=== PATIENT | male | born 1950 | race Caucasian/White ===

== ENCOUNTER 2018-05-31 12:12 | Emergency (ER) | payer OTHER ==
[2018-05-31 12:24] VITALS: BMI 26.6
--- NOTE | 2018-05-31 13:03 | PDOC ---
History of Present Illness - General Chief Complaint: Nausea/Vomiting Stated Complaint: NAUSEA/VOMITING Time Seen by Provider: 05/31/18 13:03 - History of Present Illness Initial Comments: Antony Krishnamurthy is a 67yo man with a PMH of HTN, HLD, DM, GERD who presents with diarrhea for one week and nausea/vomiting for 2 days. He reports that he initially started having severe heartburn about 2 weeks ago, much worse than normal, that was not controlled with his normal GERD medication. Then, about a week ago, he started having frequent diarrhea with urgency including at least once when he was not able to make it to the bathroom in time. He additionally started having nausea with multiple episodes of vomiting over the past 2 days and had been unable to keep any food down. Mr Krishnamurthy also states that over the past day or so he has become dizzy and lightheaded whenever he stands up. Mr Krishnamurthy denies any fevers or chills, abdominal pain, urinary symptoms, chest pain, or SOB. He has been compliant with his normal medications and checks is blood glucose regularly; this morning it was 176 at home. He additionally denies any recent hospitalizations, recent antibiotics antibiotics, travel out of the country, or sick contacts. Past History - Past Medical History Allergies/Adverse Reactions: Allergies Allergy/AdvReac Type Severity Reaction Status Date / Time No Known Allergies Allergy Verified 05/31/18 12:24 Home Medications: Ambulatory Orders Losartan/Hydrochlorothiazide [Losartan-Hctz 50-12.5 mg Tab] 1 tab PO DAILY 05/31 Omeprazole Magnesium [Prilosec] 1 dose PO DAILY 05/31/18 Anemia: (unsure) Asthma: No Cancer: No Cardiac Disorders: No CVA: No COPD: No CHF: No Dementia: No Diabetes: Yes GI Disorders: No Disorders: No HTN: Yes (takes losartan) Hypercholesterolemia: Yes Liver Disease: No Seizures: No Thyroid Disease: No - Surgical History Abdominal Surgery: No Appendectomy: No Cardiac Surgery: No Cholecystectomy: No Lung Surgery: No Neurologic Surgery: No Orthopedic Surgery: No - Suicide/Smoking/Psychosocial Hx Smoking History: Never smoked Have you smoked in the past 12 months: No Hx Alcohol Use: Yes (beer or wine on weekends) Drug/Substance Use Hx: No Substance Use Type: Alcohol Hx Substance Use Treatment: No Review of Systems - Review of Systems Able to Perform ROS?: Yes Comments:: General: No fevers, no chills, +malaise, +poor PO intake HEENT: No changes in vision, no changes in hearing, no congestion, no sore throat CV: No chest pain, no palpitations, no LE edema, +lightheaded Pulm: No SOB, no cough, no wheezing GI: See HPI. No hematemasis, no melena : No frequency, no urgency, no dysuria Musc: No back pain, no joint swelling, no recent injury Skin: No rash, no lesions, no erythema Endo: No excessive thirst, no heat/cold intolerance. h/o DM Heme: No unusual bruising or bleeding, no swollen glands Neuro: No syncope, no numbness/tingling, no focal weakness Vasc: No claudication Psych: No recent change in mood, no SI or HI Is the patient limited Urdu proficient: Yes *Physical Exam - Vital Signs Last Vital Signs Temp Pulse Resp BP Pulse Ox 98.2 F 99 H 18 102/53 99 05/31/18 12:22 05/31/18 12:22 05/31/18 12:22 05/31/18 12:22 05/31/18 12:22 - Physical Exam Comments: General: Comfortable, no acute distress HEENT: PERRL, EOMI, MMM, voice normal, normal neck ROM, no LAD Cards: RRR, no murmur appreciated Pulm: Comfortable on room air, clear to auscultation bilaterally Abd: Soft, nontender, nondistended Ext: Atraumatic. No LE edema. ROM intact. Strength 5/5 and equal bilaterally Vasc: Extremities WWP. Palpable radial and pedal pulses bilaterally Neuro: A&Ox3, CN grossly intact, normal speech, motor/sensory grossly intact and symmetric Psych: Mood appropriate to situation ED Treatment Course - LABORATORY CBC & Chemistry Diagram: 05/31/18 13:45 05/31/18 13:45 Medical Decision Making - Medical Decision Making 05/31/18 13:42 Antony Krishnamurthy is a 67yo man with a history of HTN, HLD, DM, GERD who presents with worsening GI symtpoms including severe heartburn for 2 weeks, diarrhea for 1 week, and nausea/vomiting for 2 days with poor PO intake and now lightheadedness with standing. - Most likely viral gastroenteritis, though could be bacterial given duration - No inciting events, sick contacts, or travel suggesting etiology - No risk factors for cdiff - Reports DM is well controlled, but will check UA for ketones and blood glucose to r/o GI symptoms secondary to uncontrolled DM - No s/s that suggest ACS as a cause of nausea and vomiting, especially given associated diarrhea - No abdominal pain suggesting surgical GI pathology - CBC, CMP, lipase, mag, phos, UA ordered - Zofran for nausea/vomiting - Normal saline bolus given likely dehydration - BP low, especially with h/o HTN , and reports symptoms consistent with orthostatic HoTN 05/31/18 16:39 - Symptoms resolved following zofran and IV fluids - Will PO challenge. Must be able to take PO prior to discharge - Labs returned. Slight TRISTA, may be secondary to vomiting but also has protein and ketones noted on UA and could be related to DM - Sodium and chloride low, already gave 1L NS bolus. Will replete mag - If able to tolerate PO, will discharge home. Will need to follow up with primary care for additional evaluation of kidneys - Discussed return precautions and need for follow up with Mr Krishnamurthy. Discussed with Dr Pagan. *DC/Admit/Observation/Transfer Diagnosis at time of Disposition: Vomiting Qualifiers: Vomiting type: unspecified Vomiting Intractability: non-intractable Nausea presence: with nausea Qualified Code(s): R11.2 - Nausea with vomiting, unspecified - Discharge Dispostion Disposition: HOME Condition at time of disposition: Good Decision to Admit order: No - Referrals Referrals: Opal Pope MD [Primary Care Provider] - - Patient Instructions Printed Discharge Instructions: DI for Vomiting -- Adult, Complications of Type 2 Diabetes Additional Instructions: Discharge Instructions: - You were seen in the ED for nausea and vomiting. - Your symptoms improved with a medications: you were given an antiemetic called zofran and anti-acid medication called famotidine. - You have been given a prescription for zofran for nause and vomting at home. You can take this medication every 6-8 hours if you need to for feelings of nausea or vomiting - You will need to follow up with your primary doctor. Some of the tests that you had done in the ED showed that your kidneys were not working properly - you had proteins leaking into your urine, and a blood test showed that your kidneys were not filtering your blood as well as they should be. Your doctor may want to do additional testing as diabetes can affect your kidneys. - You should also seek additional medical care if you are unable to eat or drink anything at home, you have multiple episodes of vomiting that are not controlled by medication, you have fevers or shivering chills, or your symptoms worsen over time rather than improve. Even if you are feeling better, you should follow up with your primary doctor within the next week. Print Language: POLISH - Post Discharge Activity
--- NOTE | 2018-05-31 13:22 | PDOC ---
Attending Attestation - Resident Resident Name: Kassandra Pulido - ED Attending Attestation I have performed the following: I have examined & evaluated the patient, The case was reviewed & discussed with the resident, I agree w/resident's findings & plan, Exceptions are as noted - HPI HPI: 05/31/18 13:19 67y M hx of htn, dm, gerd, presents with 1 week of non bloody brownish/soft stool, nbnb n/v x 2 days. Pt typically has heart burn but worsened the last 2 weeks, not improving with otc antacids. Pt notes some diarrhea the past week. Pt notes mild epigastric pain with is vomiting, otherwise feels ok. no associated cp, sob, fever/chills, headache, vision changes, numbness/tingling/ weakness, cough, back pain. Pt notes he is unable to tolerate oral intake, and now feeling lightheaded when standing up. No recent travel, hospitalizations, abx use, known sick contacts. BGM in the 160s at home. GENERAL: The patient is awake, alert, and fully oriented, Nontoxic - in no acute distress. HEAD: Normocephalic, atraumatic. ENT: Normal voice, mildly dry mucous membranes. NECK: Normal range of motion, supple ABDOMEN: Soft, nontender, hyperactive bowel sounds. No guarding, no rebound. No CVA tenderness EXTREMITIES: Normal range of motion, no edema. No clubbing or cyanosis. No cords, erythema, or tenderness. NEUROLOGICAL: No facial assymetry, Normal speech, moving all 4e xtremitiess pontaneously and symmetrically, normal gait PSYCH: Normal mood, normal affect. SKIN: Warm, Dry, normal turgor, likely gastroneteritis, gastritis will ck lites to r/o metabolic derangement, hyperglycemia ua to r/o uti ekg to screen for acs will give fluids, ofran, pepcid will reassess - Medical Decision Making 05/31/18 13:36 see above Heart Score/ECG Review - ECG Impressions Comment:: 05/31/18 16:16 Twelve-lead EKG was performed and reviewed by me. There is normal sinus rhythm with a normal rate. Rate of 95 The axis is normal. The intervals are normal. There are no ST or T wave abnormalities.
[2018-05-31] MEDS ORDERED: SODIUM CHLORIDE 0.9% 500 ML INFUS.BAG IV ONE (13:24)
[2018-05-31] MEDS ORDERED: ONDANSETRON 4 MG/2 ML VIAL IVPUSH ONE (13:24)
[2018-05-31] MEDS ORDERED: FAMOTIDINE 20 MG/50 ML IVPB 20 MG in PREMIX 50 IVPB ONE (13:36)
[2018-05-31] MEDS ORDERED: ONDANSETRON 4 MG/2 ML VIAL ONE (13:50)
[2018-05-31] MEDS ORDERED: FAMOTIDINE 20 MG/50 ML IVPB 20 MG/50 ML MG IVPB ONE (14:23)
[2018-05-31 14:41] LABS: URINE APPEARANCE CLEAR; URINE BILIRUBIN NEGATIVE (<2.0 mg/dL); URINE COLOR YELLOW; URINE GLUCOSE (UA) 1+ (NEGATIVE); URINE KETONE NEGATIVE (NEGATIVE); URINE LEUK ESTERASE NEGATIVE (NEGATIVE); URINE NITRITE NEGATIVE (NEGATIVE); URINE UROBILINOGEN NEGATIVE mg/dL (0.2-1.0)
[2018-05-31 14:43] LABS: URINE PROTEIN 2+ (NEGATIVE)
[2018-05-31 14:52] LABS: EPI CELLS RARE /HPF (FEW); URINE BACTERIA FEW /hpf (NONE SEEN); URINE HYALINE CAST 49 /lpf; URINE MUCUS RARE
[2018-05-31 15:12] LABS: HEMATOCRIT 32.6 % (35.4-49); HEMOGLOBIN 11.4 GM/dL (11.7-16.9); MCH 35.5 pg (25.7-33.7); MCHC 34.9 g/dl (32.0-35.9); MEAN CELL VOLUME 101.5 fl (80-96); MEAN PLT VOLUME 7.9 fl (7.5-11.1); PLATELET COUNT 161 K/MM3 (134-434); RBC 3.21 M/mm3 (4.00-5.60); WHITE BLOOD COUNT 5.5 K/mm3 (4.0-10.0)
[2018-05-31 15:41] LABS: ALBUMIN 3.9 g/dl (3.4-5.0); ANION GAP 12 (8-16); BILIRUBIN,TOTAL 0.2 mg/dL (0.2-1.0); BLOOD UREA NITROGEN 17 mg/dL (7-18); CHLORIDE 92 mmol/L (98-107); CO2 26 mmol/L (21-32); CREATININE 1.6 mg/dL (0.7-1.3); GLUCOSE,RANDOM 176 mg/dL (74-106); LIPASE 111 U/L (73-393); MAGNESIUM 1.3 mg/dL (1.8-2.4); PHOSPHOROUS 3.2 mg/dL (2.5-4.9); POTASSIUM 3.6 mmol/L (3.5-5.1); SGOT/AST 24 U/L (15-37); SGPT/ALT 32 U/L (12-78); SODIUM 130 mmol/L (136-145)
[2018-05-31 15:42] LABS: ALK PHOS 66 U/L (45-117); TOT PROT 7.4 g/dl (6.4-8.2)
[2018-05-31] MEDS ORDERED: MAGNESIUM SULF 50% (8.12 MEQ/2 ML-1 GM VIAL) IVPB ONE (16:55)
[2018-05-31] MEDS ORDERED: MAGNESIUM 1GM/D5W - 2 GM/200 ML IVPB IVPB ONE (17:32)
[2018-05-31 17:49] VITALS: BP 125/79; PULSE 93; TEMP 98.1
--- NOTE | 2018-06-01 08:57 | EKG ---
Test Reason : Blood Pressure : / mmHG Vent. Rate : 095 BPM Atrial Rate : 095 BPM P-R Int : 180 ms QRS Dur : 082 ms QT Int : 368 ms P-R-T Axes : 053 -10 013 degrees QTc Int : 462 ms NORMAL SINUS RHYTHM NORMAL ECG WHEN COMPARED WITH ECG OF 12-JAN-2004 17:06, NO SIGNIFICANT CHANGE WAS FOUND Confirmed by VERA STOCK MD ([id number]) on 06/01/2018 8:56:37 AM Referred By: Confirmed By:VERA STOCK MD
== END 2018-05-31 18:15 | disposition home or self-care (01) ==
LOC: JER 12:12
PROC: 3E0337Z Introduction of Electrolytic and Water Balance Substance into Peripheral Vein, Percutaneous Approach (ICD-10-PCS; principal; 2018-05-31)
PROC: 3E033GC Introduction of Other Therapeutic Substance into Peripheral Vein, Percutaneous Approach (ICD-10-PCS; 2018-05-31)
DX: R11.2 Nausea with vomiting, unspecified (principal)
CPT/HCPCS: 36415; 80053; 81003; 81015; 83690; 83735; 84100; 85027; 93005; 93010; 99283-25

== ENCOUNTER 2018-09-23 15:07 | Emergency (ER) | payer OTHER ==
[2018-09-23 15:16] VITALS: BP 161/93; PULSE 92; TEMP 98; BMI 27.4
--- NOTE | 2018-09-23 15:17 | PDOC ---
Rapid Medical Evaluation Time Seen by Provider: 09/23/18 15:14 Medical Evaluation: Allergies Allergy/AdvReac Type Severity Reaction Status Date / Time No Known Allergies Allergy Verified 05/31/18 12:24 09/23/18 15:15 Pt c/o: rt rib pain after falling after walking up stairs striking the step, pt denies SOB and has not taken meds for pain Pt on exam: no rt upper quadrant pain, Mild rt cva pain and posterior rt 9-11th tenderness, no crepitus, LCTA Pt ordered for: ua, rib xray pt to proceed to the ED Discharge Disposition - Diagnosis Rib pain on right side - Referrals - Patient Instructions - Post Discharge Activity
[2018-09-23 15:33] LABS: URINE APPEARANCE CLEAR; URINE BILIRUBIN NEGATIVE (<2.0 mg/dL); URINE COLOR YELLOW; URINE GLUCOSE (UA) NEGATIVE (NEGATIVE); URINE KETONE TRACE (NEGATIVE); URINE LEUK ESTERASE NEGATIVE (NEGATIVE); URINE NITRITE NEGATIVE (NEGATIVE); URINE PROTEIN 3+ (NEGATIVE); URINE UROBILINOGEN NEGATIVE mg/dL (0.2-1.0)
[2018-09-23 15:54] LABS: URINE HYALINE CAST 12 /lpf; URINE MUCUS RARE
[2018-09-23] MEDS ORDERED: KETOROLAC TROMETHAMINE 60 MG/2 ML VIAL IM ONE (16:10)
[2018-09-23] MEDS ORDERED: KETOROLAC TROMETHAMINE 60 MG/2 ML VIAL ONE (16:14)
--- NOTE | 2018-09-23 16:21 | PDOC ---
History of Present Illness - General Chief Complaint: Injury Stated Complaint: INJURY, RT SIDE Time Seen by Provider: 09/23/18 15:14 - History of Present Illness Initial Comments: 09/23/18 16:17 67-year-old male with multiple comorbidities presents for evaluation of lower back pain with right posterior leg radicular symptoms. No loss of bowel bladder function or saddle paresthesias for the last 2 days. No systemic symptoms. Past History - Past Medical History Allergies/Adverse Reactions: Allergies Allergy/AdvReac Type Severity Reaction Status Date / Time No Known Allergies Allergy Verified 09/23/18 15:16 Home Medications: Ambulatory Orders Acetaminophen [Pain Reliever] 500 mg PO ASDIR 09/23/18 Albuterol Sulfate Inhaler - [Ventolin Hfa Inhaler -] 1 - 2 inh PO QID 09/23/18 Albuterol Sulfate [Proair Hfa] 8.5 gm IH ASDIR 09/23/18 Ascorbic Acid [Vitamin C -] 500 mg PO DAILY 09/23/18 Aspirin 81 mg PO ASDIR 09/23/18 Cholecalciferol (Vitamin D3) [Vitamin D3] 5,000 unit PO ASDIR 09/23/18 Ferrous Sulfate 325 mg PO ASDIR 09/23/18 Folic Acid - 1 mg PO DAILY 09/23/18 Glipizide 5 mg PO BID 09/23/18 Lisinopril [Prinivil] 20 mg PO DAILY 09/23/18 Metoprolol Tartrate [Lopressor -] 50 mg PO BID 09/23/18 Omeprazole Magnesium [Prilosec Otc] 20 mg PO ASDIR 09/23/18 Paroxetine HCl [Paxil -] 30 mg PO DAILY 09/23/18 Phenytoin Na Extended [Dilantin -] 100 mg PO DAILY 09/23/18 Primidone 50 mg PO ASDIR 09/23/18 Simvastatin 20 mg PO ASDIR 09/23/18 Tamsulosin HCl [Flomax] 0.4 mg PO DAILY 09/23/18 Thiamine HCl [B-1] 100 mg PO ASDIR 09/23/18 Tiotropium [place] [Spiriva Respimat] 4 gm IH ASDIR 09/23/18 Vit B12/Pyridoxine/Thiamine [Apatate Liquid] 120 ml PO ASDIR 09/23/18 Zolpidem Tartrate [Ambien] 10 mg PO ASDIR 09/23/18 clonazePAM [Klonopin -] 2 mg PO DAILY 09/23/18 Anemia: (unsure) Asthma: No Cancer: No Cardiac Disorders: No CVA: No COPD: No CHF: No Dementia: No Diabetes: Yes GI Disorders: No Disorders: No HTN: Yes (takes losartan) Hypercholesterolemia: Yes Liver Disease: No Seizures: No Thyroid Disease: No - Surgical History Abdominal Surgery: No Appendectomy: No Cardiac Surgery: No Cholecystectomy: No Lung Surgery: No Neurologic Surgery: No Orthopedic Surgery: No - Suicide/Smoking/Psychosocial Hx Smoking History: Never smoked Have you smoked in the past 12 months: No Information on smoking cessation initiated: No Hx Alcohol Use: No Drug/Substance Use Hx: No Substance Use Type: Alcohol Hx Substance Use Treatment: No Review of Systems - Review of Systems Musculoskeletal: Yes: Back Pain *Physical Exam - Vital Signs Last Vital Signs Temp Pulse Resp BP Pulse Ox 98.0 F 92 H 16 161/93 100 09/23/18 15:15 09/23/18 15:15 09/23/18 15:15 09/23/18 15:15 09/23/18 15:15 - Physical Exam Comments: 09/23/18 16:18 Lumbar spine skin color and temperature are normal range of motion is decreased he has diffuse paralumbar musculature spasm and tenderness 5 out of 5 strength in bilateral lower extremities without gross sensorimotor deficits she's neurovascularly intact decreased range of motion of the lumbar spine Moderate Sedation - Procedure Monitoring Vital Signs: Procedure Monitoring Vital Signs Temperature 98.0 F 09/23/18 15:15 Pulse Rate 92 H 09/23/18 15:15 Respiratory Rate 16 09/23/18 15:15 Blood Pressure 161/93 09/23/18 15:15 O2 Sat by Pulse Oximetry (%) 100 09/23/18 15:15 ED Treatment Course - ADDITIONAL ORDERS Additional order review: Laboratory Results 09/23/18 15:17 Urine Color Yellow Urine Appearance Clear Urine pH 5.0 Ur Specific [place] 1.010 Urine Protein 3+ H Urine Glucose (UA) Negative Urine Ketones Trace H Urine Blood Negative Urine Nitrite Negative Urine Bilirubin Negative Urine Urobilinogen Negative Ur Leukocyte Esterase Negative Urine WBC (Auto) 1 Urine RBC (Auto) 1 Hyaline Casts 12 Urine Mucus Rare - RADIOLOGY Radiology Studies Ordered: Category Date Time Status CHEST PA & LAT [RAD] Stat Radiology 09/23/18 15:39 Taken - Medications Given in the ED: ED Medications Discontinued Medications Generic Name Dose Route Start Last Admin Trade Name Prakash PRN Reason Stop Dose Admin Ketorolac Tromethamine 60 mg 09/23/18 16:10 09/23/18 16:17 Toradol Injection - IM 09/23/18 16:11 60 mg ONCE ONE Administration *DC/Admit/Observation/Transfer Diagnosis at time of Disposition: Lumbar radicular pain Diagnosis at time of Disposition: (Ruled Out): Rib pain on right side - Discharge Dispostion Disposition: HOME Condition at time of disposition: Stable Decision to Admit order: No - Referrals Referrals: Landry Barajas MD [Staff Physician] - - Patient Instructions Printed Discharge Instructions: Lumbar Radiculopathy, DI for Lumbar Radiculopathy Additional Instructions: Return to the emergency room should symptoms worsen or go unresolved. Please take Tylenol only for pain because of your medication she cannot take anything other than Tylenol follow-up with spine surgery in 2-3 days for further evaluation and treatment options - Post Discharge Activity
== END 2018-09-23 16:35 | disposition home or self-care (01) ==
LOC: JERFT 15:07
PROC: 3E0233Z Introduction of Anti-inflammatory into Muscle, Percutaneous Approach (ICD-10-PCS; principal; 2018-09-23)
DX: M54.16 Radiculopathy, lumbar region (principal); W10.8XXA Fall (on) (from) other stairs and steps, initial encounter; Y93.89 Activity, other specified; Y92.89 Other specified places as the place of occurrence of the external cause; Y99.8 Other external cause status; I10 Essential (primary) hypertension; E11.9 Type 2 diabetes mellitus without complications; E78.00 Pure hypercholesterolemia, unspecified; Z79.84 Long term (current) use of oral hypoglycemic drugs
CPT/HCPCS: 71046-TC-FY; 71101-TC-RT-FY; 81003; 81015; 96372; 99281-25

== ENCOUNTER 2019-08-26 16:30 | Inpatient (IN) | payer OTHER ==
--- NOTE | 2019-08-26 16:38 | PDOC ---
Rapid Medical Evaluation Chief Complaint: Lightheaded Time Seen by Provider: 08/26/19 16:35 Medical Evaluation: 08/26/19 16:35 Pt c/o: dizziness and weak, hx of diabetes and left sided weakness ( cva in 99') , mild headache, parkinson, daily etoh abuse Pt on brief exam: elevated BP, unsteady gait PT ordered for: labs, bgm, head ct, iv, ekg pt to proceed to the ED Discharge Disposition - Diagnosis Dizziness - Referrals - Patient Instructions - Post Discharge Activity
--- NOTE | 2019-08-26 17:26 | PDOC ---
History of Present Illness - General Chief Complaint: Lightheaded Stated Complaint: LIGHT HEADED, UNSTEADY GAIT Time Seen by Provider: 08/26/19 16:35 History Source: Patient, Family (son) Exam Limitations: Language Barrier - History of Present Illness Initial Comments: 08/26/19 18:09 68y M with PMH of CVA with L sided weakness and seizures, NIDDM, HTN, HLD, BPH presenting to ED with son for unsteady gait. Patient states that this started yesterday morning but was worse today. He feels as if he is falling to the L side when he walks. He has not had symptoms like this before. He denies numbness/tingling, weakness, back pain, neck pain, headache, changes in vision, vertigo, chest pain, sob, fevers, chills, urinary symptoms. He has not fallen or hit his head. Not on AC PMD: PMH: see hpi Meds: see med rec Allergies: nkda Social: drinks daily tPA Exclusion Checklist 0-3hr - Time Elapsed Date last known well: 08/25/19 Time last known well: 09:00 Elaspsed time: 1 Day(s) and 10 Hour(s) and 20 Minutes - Thrombolytic Therapy Candidate Is the patient eligible for Thrombolytic Therapy?: No - Ineligibility reason(s) Reasons No tPA given: Outside of window - delayed arrival NIH Stroke Scale - Last Known Well Date/Time & Onset Date Last Known Well: 08/25/19 Time Last Known Well: 09:00 - Initial Evaluation Level of consciousness: Alert Ask patient the month and their age: Answers both correctly Ask patient to open & close eyes; make fist and let go: Obeys both correctly Best gaze (horizontal eye movement): Normal Visual field testing: No visual field loss Facial paresis (Show teeth/raise eyebrows/close eyes tight): Minor paralysis ( flattened nasolabial fold, asymmetry on smiling) Motor Function: Left Arm: Normal Motor Function: Right Arm: Normal (extends arm 90 (or 45) degrees for 10 seconds without drift Motor Function: Left Leg: Normal (extends leg 30 degrees for 5 seconds without drift) Motor Function: Right Leg: Normal (extends leg 30 degrees for 5 seconds without drift) Limb Ataxia: Present in two limbs Sensory(Use pinprick test arms,legs,trunk,face/side to side): Mild to moderate decrease in sensation Best language (Describe picture, name items, read sentences): No Aphasia Dysarthria (read several words): Normal articulation Extinction and Inattention: No abnormality - Total Score NIH Stroke Scale Score: 4 Past History - Past Medical History Allergies/Adverse Reactions: Allergies Allergy/AdvReac Type Severity Reaction Status Date / Time No Known Allergies Allergy Verified 08/26/19 16:39 Home Medications: Ambulatory Orders Acarbose 50 mg PO TID 08/26/19 Alprazolam [Xanax] 1 mg PO ASDIR 08/26/19 Amlodipine Besylate [Norvasc -] 10 mg PO DAILY 08/26/19 Cyanocobalamin [Vitamin B12 -] 1,000 mcg PO DAILY 08/26/19 Ferrous Sulfate [Feosol] 325 mg PO BID 08/26/19 Glipizide 5 mg PO BID 08/26/19 Glyburide/Metformin HCl [Glyburide-Metformin 5-500 mg] 1 each PO BID 08/26/19 Lisinopril [Prinivil] 20 mg PO DAILY 08/26/19 Omeprazole Magnesium [Acid Web Development Director] 40 mg PO DAILY 08/26/19 Paroxetine HCl 1 tab PO DAILY 08/26/19 Phenytoin Na Extended [Dilantin -] 100 mg PO Q6H 08/26/19 Simvastatin [Zocor] 20 mg PO HS 08/26/19 Zolpidem Tartrate 5 mg PO HS PRN 08/26/19 CVA: Yes COPD: No Diabetes: Yes HTN: Yes Other medical history: Parkinson's disease - Psycho Social/Smoking Cessation Hx Smoking History: Never smoked Information on smoking cessation initiated: No Hx Alcohol Use: Yes (daily) Drug/Substance Use Hx: No Review of Systems - Review of Systems Constitutional: No: Chills, Fever, Weakness HEENTM: No: Symptoms Reported Respiratory: No: Symptoms reported Cardiac (ROS): No: Symptoms Reported ABD/GI: No: Symptoms Reported : No: Symptoms Reported Musculoskeletal: No: Symptoms Reported Integumentary: No: Symptoms Reported Neurological: Yes: Unsteady Gait. No: Numbness, Weakness, Dizziness *Physical Exam - Vital Signs Last Vital Signs Temp Pulse Resp BP Pulse Ox 98.6 F 99 H 19 164/92 99 08/26/19 16:35 08/26/19 16:35 08/26/19 16:35 08/26/19 16:35 08/26/19 16:35 - Physical Exam General Appearance: Yes: Nourished, Appropriately Dressed. No: Apparent Distress HEENT: positive: EOMI, DULCE Neck: positive: Trachea midline, Supple Respiratory/Chest: positive: Lungs Clear, Normal Breath Sounds. negative: Crackles, Rales, Stridor, Wheezing Cardiovascular: positive: Regular Rhythm, Regular Rate, S1, S2. negative: Edema , JVD, Murmur Vascular Pulses: Dorsalis-Pedis (R): 2+, Doralis-Pedis (L): 2+ Gastrointestinal/Abdominal: positive: Normal Bowel Sounds, Soft. negative: Tender Musculoskeletal: negative: CVA Tenderness, Decreased Range of Motion Extremity: positive: Normal Capillary Refill. negative: Swelling, Calf Tenderness, Erythema Integumentary: positive: Normal Color, Dry, Warm Neurologic: positive: diamond picker II-XII NML intact, Fully Oriented, Alert, Normal Mood/ Affect, Normal Response, Facial Droop (L sided, baseline). negative: Sensory Deficit, Finger to Nose (L arm ataxia), Confused, Disoriented ED Treatment Course - LABORATORY CBC & Chemistry Diagram: 08/26/19 17:20 08/26/19 17:20 Medical Decision Making - Medical Decision Making 08/26/19 18:57 68y M with PMH of NIDDM, CVA wtih L sided deficits, HTN, HLD, BPH presenting with ataxia. vitals wnl PE: L sided ataxia. ddx includes but not limited to posterior cva, intoxication, NPH, hypoglycemia, mass/malignancy given exam, likely posterior CVA BGM in low 70s NIHSS 4. out of window for tpa labs ordered by RME: cbc, cmp, trop, tri, hdl/ldl, coags, ekg, cxr, ct head labs show anemia (unsure if baseline). 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 alcohol level 89. hyponatremia- giving NS. ekg: nsr at 97 bpm, pr 174, qrs 76, qtc 414. normal axis no valerie or depressions. no signs of acute ischemia. low suspicion for acute intoxication: pt is clinically sober, ataxia in L limbs only, reliable historian. AT CT now signed out to night team: pending CT read, neuro consult. will benefit from admission for stroke Discharge - Discharge Information Problems reviewed: Yes Clinical Impression/Diagnosis: Ataxia Condition: Stable - Follow up/Referral Referrals: Carlene Garcia MD [Primary Care Provider] - - Patient Discharge Instructions - Post Discharge Activity
[2019-08-26 17:39] LABS: BASO % 0.9 % (0-2.0); HEMATOCRIT 29.3 % (35.4-49); HEMOGLOBIN 9.9 GM/dL (11.7-16.9); LYMPH % 28.3 % (8-40); MCH 35.3 pg (25.7-33.7); MCHC 33.9 g/dl (32.0-35.9); MEAN CELL VOLUME 104.3 fl (80-96); MONO % 11.9 % (3.8-10.2); NEUT % 55.9 % (42.8-82.8); PLATELET COUNT 196 K/MM3 (134-434); RBC 2.81 M/mm3 (4.00-5.60); WHITE BLOOD COUNT 5.2 K/mm3 (4.0-10.0)
[2019-08-26 18:05] LABS: ALBUMIN 3.7 g/dl (3.4-5.0); BILIRUBIN,TOTAL 0.2 mg/dL (0.2-1); BLOOD UREA NITROGEN 10.2 mg/dL (7-18); CALCIUM 8.5 mg/dL (8.5-10.1); CREATININE 0.7 mg/dL (0.55-1.3); TOT PROT 6.6 g/dl (6.4-8.2)
[2019-08-26 18:27] LABS: INR 0.92 (0.83-1.09); PROTHROMBIN TIME (PATIENT) 10.9 SEC (9.7-13.0)
[2019-08-26 18:30] LABS: ACTIVATED PTT 27.5 SECONDS (25.2-36.5)
--- NOTE | 2019-08-26 18:42 | PDOC ---
Documentation entered by Stacey Silva SCRIBE, acting as scribe for Echo Flannery DO. Echo Flannery DO: This documentation has been prepared by the Shira perez Adrianna, SCRIBE, under my direction and personally reviewed by me in its entirety. I confirm that the documentation accurately reflects all work, treatment, procedures, and medical decision making performed by me. 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 Patient has had progressively worsening unsteady gait that began yesterday upon waking up. Patient notes he feels as if he cant move both of his legs like he normally does which causes difficulty ambulating. He endorses weakness of the left upper and lower extremity, and head pain. Denies any changes in speech, changes in vision, blurred vision, chest pain, SOB. He is not currently on any AC. Allergies: NKA, NKDA Surgical History: None reported Social History: Daily EtOH use. Denies tobacco or illicit drug use PCP: Dr. Garcia Neurologist: NOS ([place]) - Physicial Exam PE: Constitutional: Awake, alert, oriented. No acute distress. Head: Normocephalic. Atraumatic Eyes: PERRL. EOMI. Conjunctivae are not pale. ENT: Mucous membranes are moist and intact. Posterior pharynx without exudates or erythema. Uvula midline. Neck: Supple. Full ROM. No lymphadenopathy. Cardiovascular: Regular rate. Regular rhythm. S1, S2 regular. Distal pulses are 2+ and symmetric. Pulmonary/Chest: No evidence of respiratory distress. Clear to auscultation bilaterally No wheezing, rales or rhonchi. Abdominal: Soft and nondistended. There is no tenderness. No rebound, guarding or rigidity. No organomegaly. No palpable masses. Good bowel sounds. Back: No CVA tenderness. Musculoskeletal: No edema. No cyanosis. No clubbing. Full range of motion in all extremities. Nocalf tenderness. Radial/pedal pulses are intact and 2+ bilaterally Skin: Skin is warm and dry. No petechiae. No purpura. Neurological: +Left lower extremity ataxia, poor heel to hunt. +Left upper extremity ataxia, poor finger to nose. +Left-sided facial droop that is old. Alert and oriented to person, place, and time. Cranial nerves II-XII are grossly intact. Normal speech. 5/5 muscle strength, except left hand gluer which is 4/5. No sensory deficits. Psychiatric: Good eye contact. Normal interaction, affect and behavior. - Medical Decision Making 08/26/19 18:37 I, Dr. Echo Flannery, DO, attest that this document has been prepared under my direction and personally reviewed by me in its entirety. I further attest, that it accurately reflects all work, treatment, procedures and medical decision -making performed by me. a/p: 68yo male with hx of cva in the past - in [place] - with residual L facial droop with L sided weakness that started yesterday morning but worsened today -outside the window for TPA given delay in presentation -pt with ataxia to LUE and LLE with finger to nose and heel/hunt -concern for cva - labs, head ct ordered -will discuss with neuro -pt states off balance when walking, needing to hold on to the L side -will need admission for poss cva and will need MRI -will monitor and reassess 08/26/19 18:47 cxr clear etoh 89 08/26/19 19:[address] without acute findings will call dr. alanis and will admit for MRI and poss cva 08/26/19 21:[address] Alanis -requests thiamine for etoh, carotid dopplers, mri brain case discsussed with [facility] who accepts pt to service Heart Score/ECG Review - ECG Intrepretation Comment:: 08/26/19 18:42 sinus at 97, nl axis, nl interval, no acute st/t wave findings ED Treatment Course - LABORATORY CBC & Chemistry Diagram: 08/26/19 17:20 08/26/19 17:20 - ADDITIONAL ORDERS Additional order review: Laboratory Results 08/26/19 08/26/1908/26/19 18:25 17:20 17:20 PT with INR INR PTT (Actin FS) Sodium 128 L Potassium 4.0 Chloride 94 L Carbon Dioxide 21 Anion Gap 13 BUN 10.2 Creatinine 0.7 Est GFR (CKD-EPI)AfAm 113.18 Est GFR (CKD-EPI)NonAf 97.65 Random Glucose 77 Calcium 8.5 Total Bilirubin 0.2 AST 20 ALT 34 Alkaline Phosphatase 58 Creatine Kinase 82 Troponin I < 0.02 Total Protein 6.6 Albumin 3.7 Triglycerides 78 Cholesterol 185 Total LDL Cholesterol 65 HDL Cholesterol 97 H Alcohol, Quantitative 86.3 H Cancelled Blood Type Antibody Screen 08/26/19 08/26/19 17:10 17:00 PT with INR 10.90 INR 0.92 PTT (Actin FS) 27.5 Sodium Potassium Chloride Carbon Dioxide Anion Gap BUN Creatinine Est GFR (CKD-EPI)AfAm Est GFR (CKD-EPI)NonAf Random Glucose Calcium Total Bilirubin AST ALT Alkaline Phosphatase Creatine Kinase Troponin I Total Protein Albumin Triglycerides Cholesterol Total LDL Cholesterol HDL Cholesterol Alcohol, Quantitative Blood Type O POSITIVE Antibody Screen Negative 08/26/19 17:20 RBC 2.81 L MCV 104.3 H MCHC 33.9 RDW 13.0 MPV 7.0 L Neutrophils % 55.9 Lymphocytes % 28.3 Monocytes % 11.9 H Eosinophils % 3.0 Basophils % 0.9 - RADIOLOGY Radiograph Interpretation: EXAM#: TYPE/EXAM: RESULT: [id number] RAD/CHEST X-RAY PORTABLE* Portable chest: Headache. Impression: No acute chest pathology. Old rib trauma. No comparison studies. Reported By: Baldomero De La Rosa MD 08/26/19 18:49 EXAM#: TYPE/EXAM: RESULT: [id number] CT/HEAD CT WITHOUT CONTRAST HISTORY PROVIDED : Headache IMPRESSION: No evidence of acute intracranial pathology. Reported By: Chase Talavera MD 08/26/19 19:42
[2019-08-26] MEDS ORDERED: SODIUM CHLORIDE 1,000 ML IV STA (19:02)
--- NOTE | 2019-08-26 19:18 | PDOC ---
*Physical Exam - Vital Signs Last Vital Signs Temp Pulse Resp BP Pulse Ox 98.6 F 99 H 19 164/92 99 08/26/19 16:35 08/26/19 16:35 08/26/19 16:35 08/26/19 16:35 08/26/19 16:35 ED Treatment Course - LABORATORY CBC & Chemistry Diagram: 08/26/19 17:20 08/26/19 17:20 - ADDITIONAL ORDERS Additional order review: Laboratory Results 08/26/19 08/26/19 08/26/19 18:25 17:20 17:20 PT with INR INR PTT (Actin FS) Sodium 128 L Potassium 4.0 Chloride 94 L Carbon Dioxide 21 Anion Gap 13 BUN 10.2 Creatinine 0.7 Est GFR (CKD-EPI)AfAm 113.18 Est GFR (CKD-EPI)NonAf 97.65 Random Glucose 77 Calcium 8.5 Total Bilirubin 0.2 AST 20 ALT 34 Alkaline Phosphatase 58 Creatine Kinase 82 Troponin I < 0.02 Total Protein 6.6 Albumin 3.7 Triglycerides 78 Cholesterol 185 Total LDL Cholesterol 65 HDL Cholesterol 97 H Alcohol, Quantitative 86.3 H Cancelled Blood Type Antibody Screen 08/26/19 08/26/19 17:10 17:00 PT with INR 10.90 INR 0.92 PTT (Actin FS) 27.5 Sodium Potassium Chloride Carbon Dioxide Anion Gap BUN Creatinine Est GFR (CKD-EPI)AfAm Est GFR (CKD-EPI)NonAf Random Glucose Calcium Total Bilirubin AST ALT Alkaline Phosphatase Creatine Kinase Troponin I Total Protein Albumin Triglycerides Cholesterol Total LDL Cholesterol HDL Cholesterol Alcohol, Quantitative Blood Type O POSITIVE Antibody Screen Negative 08/26/19 17:20 RBC 2.81 L MCV 104.3 H MCHC 33.9 RDW 13.0 MPV 7.0 L Neutrophils % 55.9 Lymphocytes % 28.3 Monocytes % 11.9 H Eosinophils % 3.0 Basophils % 0.9 Medical Decision Making - Medical Decision Making 08/26/19 19:17 rcvd sign out from day team - awaiting CT head - neuro c/s - admit 08/26/19 21:05 CT head demonstrating no acute intracranial pathology 08/26/19 21:22 ED team discussed pt w/ Dr. Jacques (neurology) who recommended MR brain and neck, thiamine. 08/26/19 21:28 ENDORSED TO MAR // ADMITTED TO STROKE Discharge - Discharge Information Problems reviewed: Yes Clinical Impression/Diagnosis: Ataxia Condition: Stable - Admission Yes - Follow up/Referral Referrals: Carlene Garcia MD [Primary Care Provider] - - Patient Discharge Instructions - Post Discharge Activity
[2019-08-26] MEDS ORDERED: THIAMINE HCL 200 MG/2 ML VIAL IVPB ONE (21:16)
[2019-08-26] MEDS ORDERED: THIAMINE HCL 200 MG/2 ML VIAL ONE (22:23)
[2019-08-26] MEDS ORDERED: SODIUM CHLORIDE 1,000 ML IV SCH (22:30)
--- NOTE | 2019-08-26 22:51 | PN ---
Teaching Attending Note Name of Resident: Annelise Herrera ATTENDING PHYSICIAN STATEMENT I saw and evaluated the patient. I reviewed the resident's note and discussed the case with the resident. I agree with the resident's findings and plan as documented. SUBJECTIVE: 68y M with PMH of CVA with L sided weakness and seizures, NIDDM, HTN, HLD, BPHPresented initially with son for unsteady gait. Reports subjective increased weakness on his left leg. Patient states that this started 1 day ago. He feels as if he is falling to the L side when he walks. He has not had symptoms like this before. Patient was found to be intoxicated in the emergency room with EtOH. Denied ever having withdrawal noted in the past. OBJECTIVE: Last Vital Signs Temp Pulse Resp BP Pulse Ox 98.6 F 109 H 19 138/76 96 08/26/19 16:35 08/26/19 22:25 08/26/19 16:35 08/26/19 22:25 08/26/19 22:25 GENERAL: Well developed, well nourished. Awake and alert. No acute distress. HEENT: Left facial droop NECK: Supple. Full ROM. No JVD. Carotid pulses 2+ and symmetric, without bruits. No thyromegaly. No lymphadenopathy. CARDIOVASCULAR: Regular rate and rhythm. No murmurs, rubs, or gallops. Distal pulses are 2+ and symmetric. PULMONARY: No evidence of respiratory distress. Lungs clear to auscultation bilaterally. No wheezing, rales or rhonchi. ABDOMINAL: Soft. Non-tender. Non-distended. No rebound or guarding. No organomegaly. Normoactive bowel sounds. MUSCULOSKELETAL Normal range of motion at all joints. No bony deformities or tenderness. No CVA tenderness. EXTREMITIES: No cyanosis. No clubbing. No edema. No calf tenderness. SKIN: Warm and dry. Normal capillary refill. No rashes. No jaundice. NEUROLOGICAL: Old left facial droop, 4 out of 5 left lower extremity motor PSYCHIATRIC: Cooperative. Good eye contact. Appropriate mood and affect. Abnormal Lab Results 08/26/19 08/26/19 08/26/19 17:20 17:20 18:25 RBC 2.81 L Hgb 9.9 L Hct 29.3 L MCV 104.3 H MCH 35.3 H MPV 7.0 L Monocytes % 11.9 H Sodium 128 L Chloride 94 L HDL Cholesterol 97 H Alcohol, Quantitative 86.3 H Imaging reviewed ASSESSMENT AND PLAN: 68-year-old male with ataxia, new onset left lower extremity weakness, found to be intoxicated. Patient had negative head CT. Patient's ataxia and lower extremity weakness may have been caused by acute EtOH intoxication. CVA/TIA should be ruled out in this case. Neuro exam cannot be accurately assessed in this case as patient was intoxicated. Hyponatremia, hypochloremia may be secondary to vomiting. Admit to telemetry N.p.o. Neurology consult Brain MRI Neuro checks every 4 hours Echo Carotid duplex bilaterally Monitor on telemetry Aspirin High-dose statin Gentle IV fluid hydration Repeat Chem-7 Check magnesium CIWA protocol Librium detox protocol Thiamine supplementation Folate supplementation Banana bag Heparin subcutaneous for DVT prophylaxis
--- NOTE | 2019-08-26 23:17 | HP ---
CHIEF COMPLAINT: LLE weakness/ unsteady gait PCP: Dr. Garcia HISTORY OF PRESENT ILLNESS: Patient is a 68 year old Citizen Of [place] speaking male with past medical history DM, HTN , CVA (1997) w/ residual left facial droop and LLE weakness, epilepsy, PD and alcoholism who presents to the ED with cc of acutely worse left lower extremity weakness causing unsteady gait for the past 24hrs. He states the LLE weakness has been chronic but worsened yesterday after getting out of bed in the morning. He describes it as not being able to walk around firmly. He denies any falls and he states he was able to ambulate around his home, but with great difficulty and he needed to brace himself on vides/ furniture while walking. He denies any pain, numbness, tingling or change in sensation in either LE. He denies any bowel or bladder incontenence, he denies rosa upper extremity pain, weakness, numbness or tingling. He endorses drinking 4-6 beers/ day and his last alcoholic drink was yesterday when he had 5 beers. ER course was notable for: (1) EKG in NSR 97BPM, WV 174, QRS 76, QTc 414 (2) Dr. Jacques consulted by ED, appreciate recommendations to w/u patient for CVA and obtain MRI and carotid dopplers (3) EtOH level 89, CXR clear Recent Travel: denies PAST MEDICAL HISTORY: DM, HTN, CVA (1997) w/ residual left facial droop and LLE weakness, epilepsy, PD and alcoholism PAST SURGICAL HISTORY: surgery in [place] as a child Social History: Smoking: denies Alcohol: 4-6 beers/ day Drugs: denies Allergies No Known Allergies Allergy (Verified 08/26/19 16:39) HOME MEDICATIONS: Home Medications Medication Instructions Recorded Acarbose 50 mg PO TID 08/26/19 Alprazolam [Xanax] 1 mg PO ASDIR 08/26/19 Amlodipine Besylate [Norvasc -] 10 mg PO DAILY 08/26/19 Cyanocobalamin [Vitamin B12 -] 1,000 mcg PO DAILY 08/26/19 Ferrous Sulfate [Feosol] 325 mg PO BID 08/26/19 Glipizide 5 mg PO BID 08/26/19 Glyburide/Metformin HCl 1 each PO BID 08/26/19 [Glyburide-Metformin 5-500 mg] Lisinopril [Prinivil] 20 mg PO DAILY 08/26/19 Omeprazole Magnesium [Acid It Sales Representative] 40 mg PO DAILY 08/26/19 Paroxetine HCl 1 tab PO DAILY 08/26/19 Phenytoin Na Extended [Dilantin -] 100 mg PO Q6H 08/26/19 Simvastatin [Zocor] 20 mg PO HS 08/26/19 Zolpidem Tartrate 5 mg PO HS PRN 08/26/19 REVIEW OF SYSTEMS CONSTITUTIONAL: Absent: fever, chills, diaphoresis, generalized weakness, malaise, loss of appetite, weight change HEENT: Absent: rhinorrhea, nasal congestion, throat pain, throat swelling, difficulty swallowing, mouth swelling, ear pain, eye pain, visual changes CARDIOVASCULAR: Absent: chest pain, syncope, palpitations, irregular heart rate, lightheadedness , peripheral edema RESPIRATORY: Absent: cough, shortness of breath, dyspnea with exertion, orthopnea, wheezing, stridor, hemoptysis GASTROINTESTINAL: Absent: abdominal pain, abdominal distension, nausea, vomiting, diarrhea, constipation, melena, hematochezia GENITOURINARY: Absent: dysuria, frequency, urgency, hesitancy, hematuria, flank pain, genital pain MUSCULOSKELETAL: Absent: myalgia, arthralgia, joint swelling, back pain, neck pain SKIN: Absent: rash, itching, pallor HEMATOLOGIC/IMMUNOLOGIC: Absent: easy bleeding, easy bruising, lymphadenopathy, frequent infections ENDOCRINE: Absent: unexplained weight gain, unexplained weight loss, heat intolerance, cold intolerance NEUROLOGIC: focal weakness LLE, unsteady gait, Absent: headache, or paresthesias, dizziness, seizure, mental status changes, bladder or bowel incontinence PSYCHIATRIC: Absent: anxiety, depression, suicidal or homicidal ideation, hallucinations. PHYSICAL EXAMINATION Vital Signs - 24 hr 08/26/19 08/26/19 16:35 22:25 Temperature 98.6 F Pulse Rate 99 H Pulse Rate [ 109 H Right Radial] Respiratory 19 Rate Blood Pressure 164/92 Blood Pressure 138/76 [Right Arm] O2 Sat by Pulse 99 96 Oximetry (%) GENERAL: Awake, alert, and fully oriented, in no acute distress. HEAD: Normal with no signs of trauma. EYES: Pupils equal, round and reactive to light, extraocular movements intact, sclera anicteric, conjunctiva clear. No lid lag. EARS, NOSE, THROAT: Lower left facial droop Moist mucous membranes. NECK: Normal range of motion, supple without lymphadenopathy, JVD, or masses. LUNGS: Breath sounds equal, clear to auscultation bilaterally. No wheezes, and no crackles. No accessory muscle use. HEART: Regular rate and rhythm, normal S1 and S2 without murmur, rub or gallop. ABDOMEN: Soft, nontender, not distended, normoactive bowel sounds, no guarding, no rebound, no masses. No hepatomegaly or splenomegaly. MUSCULOSKELETAL: Normal range of motion at all joints. No bony deformities or tenderness. No CVA tenderness. UPPER EXTREMITIES: 2+ pulses, warm, well-perfused. No cyanosis. No clubbing. No peripheral edema. LOWER EXTREMITIES: 2+ pulses, warm, well-perfused. No calf tenderness. No peripheral edema. NEUROLOGICAL: Left sided facial droop, 4/5 stregth LLE, 5/5 stregth RLE, ataxia on finger nose test, no nystagmus, sensation intact bilaterally, and DTR in upper and lower extemites were intact bilaterally. Patient refused to cooperated with much of the CN exam because he stated he "couldn't do it" and became very agitated. NIHSS 0. PSYCHIATRIC: Agitated and occasionally yelling SKIN: Warm, dry, normal turgor, no rashes or lesions noted, normal capillary refill. Laboratory Results - last 24 hr 08/26/19 08/26/19 08/26/19 17:00 17:10 17:20 WBC RBC Hgb Hct MCV MCH MCHC RDW Plt Count MPV Absolute Neuts (auto) Neutrophils % Lymphocytes % Monocytes % Eosinophils % Basophils % Nucleated RBC % PT with INR 10.90 INR 0.92 PTT (Actin FS) 27.5 Sodium Potassium Chloride Carbon Dioxide Anion Gap BUN Creatinine Est GFR (CKD-EPI)AfAm Est GFR (CKD-EPI)NonAf Random Glucose Calcium Total Bilirubin AST ALT Alkaline Phosphatase Creatine Kinase 82 Troponin I < 0.02 Total Protein Albumin Triglycerides Cholesterol Total LDL Cholesterol HDL Cholesterol Alcohol, Quantitative Cancelled Blood Type O POSITIVE Antibody Screen Negative 08/26/19 08/26/19 08/26/19 17:20 17:20 18:25 WBC 5.2 RBC 2.81 L Hgb 9.9 L Hct 29.3 L MCV 104.3 H MCH 35.3 H MCHC 33.9 RDW 13.0 Plt Count 196 MPV 7.0 L Absolute Neuts (auto) 2.9 Neutrophils % 55.9 Lymphocytes % 28.3 Monocytes % 11.9 H Eosinophils % 3.0 Basophils % 0.9 Nucleated RBC % 0 PT with INR INR PTT (Actin FS) Sodium 128 L Potassium 4.0 Chloride 94 L Carbon Dioxide 21 Anion Gap 13 BUN 10.2 Creatinine 0.7 Est GFR (CKD-EPI)AfAm 113.18 Est GFR (CKD-EPI)NonAf 97.65 Random Glucose 77 Calcium 8.5 Total Bilirubin 0.2 AST 20 ALT 34 Alkaline Phosphatase 58 Creatine Kinase Troponin I Total Protein 6.6 Albumin 3.7 Triglycerides 78 Cholesterol 185 Total LDL Cholesterol 65 HDL Cholesterol 97 H Alcohol, Quantitative 86.3 H Blood Type Antibody Screen ASSESSMENT/PLAN: Patient is a 68 year old Citizen Of [place] speaking male with past medical history DM, HTN , CVA (1997) w/ residual left facial droop and LLE weakness, epilepsy, PD and alcoholism who presents to the ED with cc of acutely worse left lower extremity weakness causing unsteady gait for the past 24hrs. # R/O CVA- CT negative, outside the window for TPA (sx started 24h ago). CVA/ TIA should be ruled out in this case given his pmhx and acute new neurologic sx. Additionally the patient was found to have elevated alcohol level in blood, though he reported his last drink was 1 day earlier. It is possible his ataxia and weakness are 2/2 to alcohol intoxication. Patient was combative and uncooperative on interview/ exam. A NIHSS was able to be completed, the score was zero, but the patient grew increasingly agitated with questioning and was very uncooperative by the end. - Admit to telemetry - Neurology, Dr. Jacques, consulted. Appreciate recommendations - f/u MRI brain - f/u US carotids - Echo - ASA 81 daily - High-dose statin - Neuro checks every 4 hours - Gentle IV fluid hydration - NPO # Alcohol intoxication/ withdrawal - Patient drinks 4-6 beers daily, had elevated blood alcohol on admission, risk of withdrawal symptoms. Pt reports history of seizures. - Repeat Chem-7 - f/u magnesium - CIWA protocol, CIWA score - Librium detox protocol - Thiamine supplementation - Folate supplementation - Multivitamin - Banana bag # Hyponatremia, hypochloremia- may be secondary to vomiting - Hydration with IVNS # HTN - resume home blood pressure medications when clinically appropriate #FEN NS @83cc/h monitor replete PRN NPO until patient passes bedside swallow eval then soft diet #PPx - Heparin subcutaneous for DVT prophylaxis #Dispo- admit to tele, full code Visit type - Emergency Visit Emergency Visit: Yes ED Registration Date: 08/26/19 Care time: The patient presented to the Emergency Department on the above date and was hospitalized for further evaluation of their emergent condition. - New Patient This patient is new to me today: Yes Date on this admission: 08/27/19 - Critical Care Critical Care patient: No ATTENDING PHYSICIAN STATEMENT I saw and evaluated the patient. I reviewed the resident's note and discussed the case with the resident. I agree with the resident's findings and plan as documented. SUBJECTIVE: OBJECTIVE: ASSESSMENT AND PLAN:
[2019-08-26] MEDS ORDERED: chlordiazePOXIDE HCL 10 MG CAPSULE PO PRN (23:21)
[2019-08-26] MEDS ORDERED: FOLIC ACID INJECTION - 1 MG, THIAMINE HCL 100 MG, MULTIVIT INJECTION ADULT 10 ML in SOD... IVPB ONE (23:27)
[2019-08-27 01:53] LABS: EPI CELLS 0.1 /HPF (0-5/HPF); HYALINE CASTS 1 /lpf (0-8); PH,URINE 5.5 (5.0-8.0); URINE APPEARANCE CLEAR; URINE BACTERIA 0.3 /hpf (NEGATIVE); URINE BILIRUBIN NEGATIVE (NEGATIVE); URINE COLOR YELLOW; URINE GLUCOSE (UA) NEGATIVE (NEGATIVE); URINE KETONE NEGATIVE (NEGATIVE); URINE LEUK ESTERASE NEGATIVE (NEGATIVE); URINE NITRITE NEGATIVE (NEGATIVE); URINE PROTEIN 1+ (NEGATIVE); URINE RBC 0 /hpf (0-4); URINE UROBILINOGEN 0.2 mg/dL (0.2-1.0); URINE WBC 0 /hpf (0-5)
[2019-08-27 03:01] VITALS: BMI 27.5
[2019-08-27] MEDS ORDERED: SODIUM CHLORIDE 1,000 ML IV SCH (03:55)
[2019-08-27] MEDS: chlordiazePOXIDE HCL 25 MG CAPSULE PO SCH ×3 (06:47→21:13)
[2019-08-27] MEDS: HEPARIN NA (PORCINE) 5,000 UNITS/ML 1ML VIAL SQ SCH ×3 (06:47→21:13)
[2019-08-27] MEDS: PHENYTOIN NA EXTENDED 100 MG CAPSULE (FP) PO SCH ×4 (06:47→23:19)
[2019-08-27 07:46] LABS: EOS % 4.6 % (0-4.5); HEMATOCRIT 27.5 % (35.4-49); HEMOGLOBIN 9.5 GM/dL (11.7-16.9); LYMPH % 33.7 % (8-40); MCH 35.8 pg (25.7-33.7); MCHC 34.7 g/dl (32.0-35.9); MEAN CELL VOLUME 103.4 fl (80-96); MEAN PLT VOLUME 7.2 fl (7.5-11.1); MONO % 12.8 % (3.8-10.2); NEUT % 47.9 % (42.8-82.8); PLATELET COUNT 206 K/MM3 (134-434); RBC 2.66 M/mm3 (4.00-5.60); RDW 13.1 % (11.9-15.9); WHITE BLOOD COUNT 4.1 K/mm3 (4.0-10.0)
[2019-08-27 08:53] LABS: ALBUMIN 3.3 g/dl (3.4-5.0); BILIRUBIN,TOTAL 0.3 mg/dL (0.2-1); BLOOD UREA NITROGEN 8.7 mg/dL (7-18); CALCIUM 8.8 mg/dL (8.5-10.1); CREATININE 0.6 mg/dL (0.55-1.3); MAGNESIUM 1.9 mg/dL (1.8-2.4); PHOSPHOROUS 3.2 mg/dL (2.5-4.9); POTASSIUM 4.2 mmol/L (3.5-5.1); TOT PROT 5.9 g/dl (6.4-8.2)
--- NOTE | 2019-08-27 09:57 | CONSULT ---
Admitting History and Physical - Primary Care Physician PCP: Toni Cruz - Admission History of Present Illness: 68y M with PMH of CVA with L sided weakness and seizures, NIDDM, HTN, HLD, BPH admitted for unsteady gait. Patient was found to be intoxicated in the emergency room with ETOH. CT head (-). MRI noted History Source: Patient, Medical Record Limitations to Obtaining History: No Limitations - Smoking History Smoking history: Never smoked Have you smoked in the past 12 months: No - Alcohol/Substance Use Hx Alcohol Use: Yes (daily) History - Admission Reason For Visit: ATAXIA - Diagnostics X-ray: Report Reviewed CT Scan: Report Reviewed MRI: Report Reviewed - General Mental Status: Alert and Oriented, Awake and Alert, Able to Follow Commands Attention: Intact Ability to Follow Directions: Excellent Head/Neck Control: WFL - Hearing Hearing: Normal Hearing Aide: No Speech Evaluation - Communication Primary Language: [place] Communication: Yes: Within Normal Limits Oral Expression Ability: Yes: No Impairment - Speech Production Able to Make Needs Known: Yes: WNL Intelligibility: Yes: WNL - Speech Characteristics Voice Loudness: Normal Voice Pitch: Yes: Normal Voice Phonatory-based Quality: Yes: Normal Speech Pattern: Normal Speech Clarity: < 100% Nasal Resonance: Normal Articulation: Yes: Precise Rate of Speech: Intact - Language/Auditory Comprehension Follows: Yes: 2 Stage Simple Commands Observation: Able to respond to yes/no queries: Yes, Yes/No Confusion: No, Comprehends Conversational Speech: Yes - Language/Verbal Expression Able to Respond to Simple Queries: Yes: WNL Able to Communicate Wants and Needs: Yes: WNL Functional Communication Status: Yes: WNL - Swallow Evaluation/Bedside Assessment Current Nutritional Intake: Soft, Thin Liquids Oral Secretions: Yes: WFL Dentition: Yes: Adequate Facial Symmetry at Rest: Facial Droop Left (incomplete bilabial closure on left with diificulty impounding air.) Lingual Movement: Symmetric Lingual Speed of Movement: Normal Lingual Movement Strgth Against Opposition: Normal Lingual Movement Characteristics: Normal Velopharyngeal Movement: Normal Laryngeal Elevation: WFL Laryngeal Movement: Able to Palpate Rate of Intake: WFL Bolus Size: WFL Labial Seal: WFL Chewing: WFL Oral Prep Time: WFL A-P Transit: WFL Pocketing: None Timing of Swallow: WFL Coughing/Throat Clear: No Change in Voice: No Recommendations - Speech Evaluation, Impression/Plan Impression: Mild left facial with incomplete bilabial closure on left with diificulty impounding air. (Chronic?). Speech,language, swallowing intact - Disposition Discharge to: To be Determined - Dysphagia Impressions/Plan Swallowing Skills: WF Dysphagia Impressions: No Impairment *Silent aspiration: cannot be R/O at bedside Dysphagia Treatment Plan: OOB for meals, OOB for 1 h. after meals Recommendations: Neuro Consult (pending) - Recommendations Diet Consistency: Regular Medication Administration: Whole with water Liquids: Thin Liquids
[2019-08-27] MEDS ORDERED: THIAMINE HCL 100 MG TABLET (FP) PO SCH ×2 (10:00→14:00)
[2019-08-27] MEDS: FOLIC ACID 1 MG TABLET (FP) PO SCH (11:12)
[2019-08-27] MEDS: ASPIRIN COATED 81 MG TABLET.EC PO SCH (11:12)
[2019-08-27] MEDS: MULTIVITAMINS (DAILY MVI) TABLET (FP) PO SCH (11:13)
--- NOTE | 2019-08-27 12:24 | EKG ---
Test Reason : Blood Pressure : / mmHG Vent. Rate : 097 BPM Atrial Rate : 097 BPM P-R Int : 174 ms QRS Dur : 076 ms QT Int : 326 ms P-R-T Axes : 055 009 056 degrees QTc Int : 414 ms NORMAL SINUS RHYTHM NORMAL ECG NO PREVIOUS ECGS AVAILABLE Confirmed by CHAKA PABON MD ([id number]) on 08/27/2019 12:24:09 PM Referred By: Confirmed By:CHAKA PABON MD
--- NOTE | 2019-08-27 13:08 | CONSULT ---
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 He states the LLE weakness has been chronic but worsened yesterday after getting out of bed in the morning. He describes it as not being able to walk around firmly. He denies any falls and he states he was able to ambulate around his home, but with great difficulty and he needed to brace himself on vides/ furniture while walking. He denies any pain, numbness, tingling or change in sensation in either LE. He denies any bowel or bladder incontenence, he denies rosa upper extremity pain, weakness, numbness or tingling. He endorses drinking 4-6 beers/ day and his last alcoholic drink was yesterday when he had 5 beers. 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 Though he admits to drinking, he does not endorse daily beers. He states he drinks 2-3 times per week and probably on weekends but does not believe alcohol is a problem for him. He has had periods of complete abstinence and says that he can stop drinking at will. He was offered detox and rehab services but does not wish it at this time. CIWA Score - CIWA Score Nausea/Vomitin-No Nausea/No Vomiting Muscle Tremors: 1-None Visible, but [place] Anxiety: 0-No Anxiety, at Ease Agitation: 0-Normal Activity Paroxysmal Sweats: No Perspiration Orientation: 0-Oriented Tacttile Disturbances: 0-None Auditory Disturbances: 0-None Visual Disturbances: 0-None Headache: 0-None Present CIWA-Ar Total Score: 1 Assessment Plan - Plan Plan: 1. Alcohol use disorder: Though he uses alcohol there isn't a clear admission that will support dependence. Patient offered counseling about use and its implication medically and psychosocially but does not wish to avail himself of the detox or rehab services offered at [facility]. The Librium protocol that was initiated can be completed to termination. Refer patient if he wishes further treatment to [facility]. Dr. Rodriguez - Medication Detox Regimen/Protocol: Librium (continue and finish protocol)
--- NOTE | 2019-08-27 13:38 | ECHO ---
Name: PETTY SHAFFER JOSE Exam:Adult Echocardiogram Study Date: 08/27/2019 10:15 AM Age: 68 yrs Reason For Study: THROMBUS Height: 63 in Weight: 160 lb BSA: 1.8 m2 MMode/2D Measurements & Calculations IVSd: 0.98 cm Ao root diam: 3.0 cm LVIDd: 4.5 cm LA dimension: 3.5 cm LVIDs: 3.2 cm LVPWd: 1.0 cm LVPWs: 1.3 cm EDV(Teich): 91.1 ml ESV(Teich): 40.1 ml LVOT diam: 1.9 cm LAV (MOD-bp): 49.0 ml Doppler Measurements & Calculations MV E max malachi: 54.3 cm/sec Ao V2 max: 133.0 cm/sec MV A max malachi: 87.9 cm/sec Ao max P.3 mmHg MV E/A: 0.62 MV dec time: 0.07 sec CECILIA(V,D): 1.9 cm2 LV V1 max P.5 mmHg TR max malachi: 222.0 cm/sec LV V1 max: 93.3 cm/sec TR max P.7 mmHg PA V2 max: 97.7 cm/sec PI end-d malachi: 101.0 cm/sec PA max P.8 mmHg Med Peak E' Malachi: 5.3 cm/sec Med E/e': 10.3 Lat Peak E' Malachi: 9.7 cm/sec Lat E/e': 5.6 Procedure A complete two-dimensional transthoracic echocardiogram was performed (2D, M-mode, Doppler and color flow Doppler). Left Ventricle The left ventricular size, thickness and function are normal. The left ventricular ejection fraction is normal. Ejection Fraction = 60-65%. The left ventricular wall motion is normal. Right Ventricle The right ventricle is normal in size and function. Atria Normal left and right atrial size and function. Mitral Valve There is no mitral regurgitation noted. Tricuspid Valve There is trace tricuspid regurgitation. There was insufficient TR detected to calculate RV systolic p ressure. Aortic Valve The aortic valve is trileaflet. No hemodynamically significant valvular aortic stenosis. No aortic regurgitation is present. Pulmonic Valve There is no pulmonic valvular regurgitation. Great Vessels The aortic root is normal size. Pericardium/Pleura There is no pericardial effusion. Interpretation Summary The left ventricular size, thickness and function are normal The right ventricle is normal in size and function. There is trace tricuspid regurgitation. MD Hieu Ramírez 08/27/2019 01:38 PM
--- NOTE | 2019-08-27 13:52 | PN ---
Physical Exam: SUBJECTIVE: Patient seen and examined Denies chest pain, weakness. Refuses rehab treatment for EtOH detox OBJECTIVE: Vital Signs Period Temp Pulse Resp BP Sys/Anderson Pulse Ox Last 24 Hr 98.0 F-98.6 F 94-109 18-19 138-164/76-92 96-99 GENERAL: The patient is awake, alert, and fully oriented. NAD. CIWA 1 HEAD: NC/AT EYES: extraocular movements intact, sclera anicteric, conjunctiva clear ENT: Ears normal, nares patent, oropharynx clear without exudates, moist mucous membranes. NECK: Trachea midline, full range of motion, supple. LUNGS: Breath sounds equal, clear to auscultation bilaterally, no wheezes, no crackles, no accessory muscle use. HEART: Regular rate and rhythm, S1, S2 without murmur, rub or gallop. ABDOMEN: Soft, nontender, nondistended, no guarding, no rebound. EXTREMITIES: 2+ pulses, warm, well-perfused, no edema. NEUROLOGICAL: Normal speech, gait not observed. Left facial droop noted with smiling. Left fudge candy maker strength 4/5 PSYCH: Normal mood, normal affect. SKIN: Warm, dry, normal turgor, no rashes or lesions noted Laboratory Results - last 24 hr 08/26/19 08/26/19 08/26/19 05:40 17:00 17:10 WBC RBC Hgb Hct MCV MCH MCHC RDW Plt Count MPV Absolute Neuts (auto) Neutrophils % Lymphocytes % Monocytes % Eosinophils % Basophils % Nucleated RBC % PT with INR 10.90 INR 0.92 PTT (Actin FS) 27.5 Sodium Potassium Chloride Carbon Dioxide Anion Gap BUN Creatinine Est GFR (CKD-EPI)AfAm Est GFR (CKD-EPI)NonAf POC Glucometer Random Glucose Hemoglobin A1c % Calcium Phosphorus Magnesium Total Bilirubin AST ALT Alkaline Phosphatase Creatine Kinase Troponin I Total Protein Albumin Triglycerides Cholesterol Total LDL Cholesterol HDL Cholesterol Vitamin B12 Serum Folate Urine Color Urine Appearance Urine pH Ur Specific [place] Urine Protein Urine Glucose (UA) Urine Ketones Urine Blood Urine Nitrite Urine Bilirubin Urine Urobilinogen Ur Leukocyte Esterase Urine WBC (Auto) Urine RBC (Auto) Urine Casts (Auto) U Epithel Cells (Auto) Urine Bacteria (Auto) Alcohol, Quantitative Blood Type O POSITIVE O POSITIVE Antibody Screen Negative 10/30/19 10/30/19 10/30/19 17:20 17:20 17:20 WBC 5.2 RBC 2.81 L Hgb 9.9 L Hct 29.3 L MCV 104.3 H MCH 35.3 H MCHC 33.9 RDW 13.0 Plt Count 196 MPV 7.0 L Absolute Neuts (auto) 2.9 Neutrophils % 55.9 Lymphocytes % 28.3 Monocytes % 11.9 H Eosinophils % 3.0 Basophils % 0.9 Nucleated RBC % 0 PT with INR INR PTT (Actin FS) Sodium 128 L Potassium 4.0 Chloride 94 L Carbon Dioxide 21 Anion Gap 13 BUN 10.2 Creatinine 0.7 Est GFR (CKD-EPI)AfAm 113.18 Est GFR (CKD-EPI)NonAf 97.65 POC Glucometer Random Glucose 77 Hemoglobin A1c % Calcium 8.5 Phosphorus Magnesium Total Bilirubin 0.2 AST 20 ALT 34 Alkaline Phosphatase 58 Creatine Kinase 82 Troponin I < 0.02 Total Protein 6.6 Albumin 3.7 Triglycerides Cholesterol Total LDL Cholesterol HDL Cholesterol Vitamin B12 Serum Folate Urine Color Urine Appearance Urine pH Ur Specific [place] Urine Protein Urine Glucose (UA) Urine Ketones Urine Blood Urine Nitrite Urine Bilirubin Urine Urobilinogen Ur Leukocyte Esterase Urine WBC (Auto) Urine RBC (Auto) Urine Casts (Auto) U Epithel Cells (Auto) Urine Bacteria (Auto) Alcohol, Quantitative Cancelled Blood Type Antibody Screen 08/26/19 08/27/19 08/27/19 18:25 00:00 00:02 WBC RBC Hgb Hct MCV MCH MCHC RDW Plt Count MPV Absolute Neuts (auto) Neutrophils % Lymphocytes % Monocytes % Eosinophils % Basophils % Nucleated RBC % PT with INR INR PTT (Actin FS) Sodium Potassium Chloride Carbon Dioxide Anion Gap BUN Creatinine Est GFR (CKD-EPI)AfAm Est GFR (CKD-EPI)NonAf POC Glucometer 166 Random Glucose Hemoglobin A1c % Calcium Phosphorus Magnesium Total Bilirubin AST ALT Alkaline Phosphatase Creatine Kinase Troponin I Total Protein Albumin Triglycerides 78 Cholesterol 185 Total LDL Cholesterol 65 HDL Cholesterol 97 H Vitamin B12 Serum Folate Urine Color Yellow Urine Appearance Clear Urine pH 5.5 Ur Specific [place] 1.005 L Urine Protein 1+ H Urine Glucose (UA) Negative Urine Ketones Negative Urine Blood Negative Urine Nitrite Negative Urine Bilirubin Negative Urine Urobilinogen 0.2 Ur Leukocyte Esterase Negative Urine WBC (Auto) 0 Urine RBC (Auto) 0 Urine Casts (Auto) 1 U Epithel Cells (Auto) 0.1 Urine Bacteria (Auto) 0.3 Alcohol, Quantitative 86.3 H Blood Type Antibody Screen 08/27/19 08/27/19 08/27/19 05:40 05:40 05:40 WBC 4.1 RBC 2.66 L Hgb 9.5 L Hct 27.5 L MCV 103.4 H MCH 35.8 H MCHC 34.7 RDW 13.1 Plt Count 206 MPV 7.2 L Absolute Neuts (auto) 2.0 Neutrophils % 47.9 Lymphocytes % 33.7 Monocytes % 12.8 H Eosinophils % 4.6 H Basophils % 1.0 Nucleated RBC % 0 PT with INR INR PTT (Actin FS) Sodium 138 Potassium 4.2 Chloride 101 Carbon Dioxide 28 Anion Gap 8 BUN 8.7 Creatinine 0.6 Est GFR (CKD-EPI)AfAm 120.58 Est GFR (CKD-EPI)NonAf 104.04 POC Glucometer Random Glucose 157 H Hemoglobin A1c % 5.9 Calcium 8.8 Phosphorus 3.2 Magnesium 1.9 Total Bilirubin 0.3 AST 17 ALT 32 Alkaline Phosphatase 53 Creatine Kinase Troponin I Total Protein 5.9 L Albumin 3.3 L Triglycerides Cholesterol Total LDL Cholesterol HDL Cholesterol Vitamin B12 652 Serum Folate 86 H Urine Color Urine Appearance Urine pH Ur Specific [place] Urine Protein Urine Glucose (UA) Urine Ketones Urine Blood Urine Nitrite Urine Bilirubin Urine Urobilinogen Ur Leukocyte Esterase Urine WBC (Auto) Urine RBC (Auto) Urine Casts (Auto) U Epithel Cells (Auto) Urine Bacteria (Auto) Alcohol, Quantitative Blood Type Antibody Screen 08/27/19 06:54 WBC RBC Hgb Hct MCV MCH MCHC RDW Plt Count MPV Absolute Neuts (auto) Neutrophils % Lymphocytes % Monocytes % Eosinophils % Basophils % Nucleated RBC % PT with INR INR PTT (Actin FS) Sodium Potassium Chloride Carbon Dioxide Anion Gap BUN Creatinine Est GFR (CKD-EPI)AfAm Est GFR (CKD-EPI)NonAf POC Glucometer 136 Random Glucose Hemoglobin A1c % Calcium Phosphorus Magnesium Total Bilirubin AST ALT Alkaline Phosphatase Creatine Kinase Troponin I Total Protein Albumin Triglycerides Cholesterol Total LDL Cholesterol HDL Cholesterol Vitamin B12 Serum Folate Urine Color Urine Appearance Urine pH Ur Specific [place] Urine Protein Urine Glucose (UA) Urine Ketones Urine Blood Urine Nitrite Urine Bilirubin Urine Urobilinogen Ur Leukocyte Esterase Urine WBC (Auto) Urine RBC (Auto) Urine Casts (Auto) U Epithel Cells (Auto) Urine Bacteria (Auto) Alcohol, Quantitative Blood Type Antibody Screen Active Medications Generic Name Dose Route Start Last Admin Trade Name Freq PRN Reason Stop Dose Admin Aspirin 81 mg 08/27/19 10:00 08/27/19 11:12 Ecotrin - PO 81 mg DAILY MARISOL Administration Atorvastatin Calcium 40 mg 08/27/19 22:00 Lipitor - PO HS MARISOL Chlordiazepoxide HCl 10 mg 08/28/19 00:00 Librium - PO 08/28/19 23:59 Q12H PRN Signs/symptoms of Withdrawal Chlordiazepoxide HCl 10 mg 08/26/19 23:21 Librium - PO 08/27/19 23:59 Q8H PRN Signs/symptoms of Withdrawal Chlordiazepoxide HCl 25 mg 08/27/19 05:00 08/27/19 13:11 Librium - PO 08/27/19 21:01 25 mg Q8H MARISOL Administration Chlordiazepoxide HCl 15 mg 08/28/19 05:00 Librium - PO 08/28/19 21:01 Q8H MARISOL Chlordiazepoxide HCl 10 mg 08/29/19 05:00 Librium - PO 08/29/19 21:01 Q8H MARISOL Chlordiazepoxide HCl 10 mg 08/30/19 05:00 Librium - PO 08/30/19 05:01 ONCE ONE Folic Acid 1 mg 08/27/19 10:00 08/27/19 11:12 Folic Acid - PO 1 mg DAILY MARISOL Administration Heparin Sodium (Porcine) 5,000 unit 08/27/19 06:00 08/27/19 13:11 Heparin - SQ 5,000 unit TID MARISOL Administration Sodium Chloride 1,000 mls @ 83 mls/hr 08/27/19 03:55 08/27/19 06:48 Normal Saline - IV Not Given [facility] Multivitamins/Minerals/Vitamin C 1 tab 08/27/19 10:00 08/27/19 11:13 Tab-A-Vit - PO 1 tab DAILY MARISOL Administration Phenytoin Sodium 100 mg 08/27/19 06:00 08/27/19 11:12 Dilantin - PO 100 mg Q6HPO MARISOL Administration Thiamine HCl 100 mg 08/27/19 10:00 08/27/19 11:12 Vitamin B1 - PO 100 mg DAILY MARISOL Administration ASSESSMENT/PLAN: Patient is a 68 year old Belarusian speaking male with past medical history NIDDM, HTN, 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 Parkinson's Disease, and alcoholism(4-6beers daily) who presents to the ED with cc of acutely worse left lower extremity weakness causing unsteady gait for the past 24hrs. Weakness and unsteady gait is resolving. CTH neg for infarct. MRI brain showing loss of brain prenchymal volume w/ involutional changes, chronic lacunar infarct of the Left basal ganglia, 5mm infarct w/in lateral aspect of the Right-side of midbrain. S&S recommending regular diet. Neuro consult pending. US carotid pending. # Altered gait --2/2 CVA vs TIA vs acute intoxication - presenting NIHSS 4, current NIHSS 0 - outside the window for TPA (sx started 24h ago) > CT H(08/26/19): negative > MRI brain(08/27/19): loss of brain prenchymal volume w/ involutional changes, chronic lacunar infarct of the Left basal ganglia, 5mm infarct w/in lateral aspect of the Right-side of midbrain - consult Neurology(Georgie): - f/u US carotids - ASA 81 daily - High-dose statin - S&S # h/o seizures --unknown if related to EtOH - cw home phenytoin # Alcohol intoxication/ withdrawal --no longer intoxicated, CIWA 1(fine tremors) > EtOH 86.3, on admission > CIWA 1 - Librium detox protocol - Thiamine supplementation - Folate supplementation - Multivitamin - Banana bag # chronic NIDDM > HbA1c ~5.9 - ISS + BGM # macrocytic anemia > MCV >96 > Folate 62 > B12 86 # Hyponatremia, hypochloremia --resolving after IVF - dc IVF for now # HTN - resuming home BP meds(metoprolol, amlodipine, lisinopril) #FEN - S&S: diabetic diet - replete PRN #PPx - Heparin subcutaneous for DVT prophylaxis #Dispo- admit to tele, full code Visit type - Emergency Visit Emergency Visit: No - New Patient This patient is new to me today: No - Critical Care Critical Care patient: No ATTENDING PHYSICIAN STATEMENT I saw and evaluated the patient. I reviewed the resident's note and discussed the case with the resident. I agree with the resident's findings and plan as documented. SUBJECTIVE: OBJECTIVE: ASSESSMENT AND PLAN:
[2019-08-27] MEDS ORDERED: ALBUTEROL SO4 8 GM HFA INHALER IH PRN (13:56)
--- NOTE | 2019-08-27 14:00 | PN ---
Teaching Attending Note Name of Resident: Greg Barbosa ATTENDING PHYSICIAN STATEMENT I saw and evaluated the patient. I reviewed the resident's note and discussed the case with the resident. I agree with the resident's findings and plan as documented. SUBJECTIVE: Feels well, complains of generalized LE weakness. No focal complaints. NO headache/visual disturbance. No new slurring of speech. No numbness/tingling. OBJECTIVE: Afebrile, hemodynamically Stable. Mild tremor UEs. Last Vital Signs Temp Pulse Resp BP Pulse Ox 98.0 F 94 H 18 146/81 99 08/27/19 08:50 08/27/19 08:50 08/27/19 08:50 08/27/19 08:50 08/27/19 01:30 HEENT - Atraumatic, L facial droop (chronic) Heart - S1, S2, RRR Lungs - clear to auscultation Abdomen - Soft, non-tender. Bowel Sounds normal Extremities - no edema, no calf tenderness. Neuro - AAO x 3. Trace reduction in power LUE and LLE. Laboratory Results - last 24 hr 08/26/19 08/26/19 08/26/19 05:40 17:00 17:10 WBC RBC Hgb Hct MCV MCH MCHC RDW Plt Count MPV Absolute Neuts (auto) Neutrophils % Lymphocytes % Monocytes % Eosinophils % Basophils % Nucleated RBC % PT with INR 10.90 INR 0.92 PTT (Actin FS) 27.5 Sodium Potassium Chloride Carbon Dioxide Anion Gap BUN Creatinine Est GFR (CKD-EPI)AfAm Est GFR (CKD-EPI)NonAf POC Glucometer Random Glucose Hemoglobin A1c % Calcium Phosphorus Magnesium Total Bilirubin AST ALT Alkaline Phosphatase Creatine Kinase Troponin I Total Protein Albumin Triglycerides Cholesterol Total LDL Cholesterol HDL Cholesterol Vitamin B12 Serum Folate Urine Color Urine Appearance Urine pH Ur Specific [place] Urine Protein Urine Glucose (UA) Urine Ketones Urine Blood Urine Nitrite Urine Bilirubin Urine Urobilinogen Ur Leukocyte Esterase Urine WBC (Auto) Urine RBC (Auto) Urine Casts (Auto) U Epithel Cells (Auto) Urine Bacteria (Auto) Alcohol, Quantitative Blood Type O POSITIVE O POSITIVE Antibody Screen Negative 08/26/19 08/26/19 08/26/19 17:20 17:20 17:20 WBC 5.2 RBC 2.81 L Hgb 9.9 L Hct 29.3 L MCV 104.3 H MCH 35.3 H MCHC 33.9 RDW 13.0 Plt Count 196 MPV 7.0 L Absolute Neuts (auto) 2.9 Neutrophils % 55.9 Lymphocytes % 28.3 Monocytes % 11.9 H Eosinophils % 3.0 Basophils % 0.9 Nucleated RBC % 0 PT with INR INR PTT (Actin FS) Sodium 128 L Potassium 4.0 Chloride 94 L Carbon Dioxide 21 Anion Gap 13 BUN 10.2 Creatinine 0.7 Est GFR (CKD-EPI)AfAm 113.18 Est GFR (CKD-EPI)NonAf 97.65 POC Glucometer Random Glucose 77 Hemoglobin A1c % Calcium 8.5 Phosphorus Magnesium Total Bilirubin 0.2 AST 20 ALT 34 Alkaline Phosphatase 58 Creatine Kinase 82 Troponin I < 0.02 Total Protein 6.6 Albumin 3.7 Triglycerides Cholesterol Total LDL Cholesterol HDL Cholesterol Vitamin B12 Serum Folate Urine Color Urine Appearance Urine pH Ur Specific [place] Urine Protein Urine Glucose (UA) Urine Ketones Urine Blood Urine Nitrite Urine Bilirubin Urine Urobilinogen Ur Leukocyte Esterase Urine WBC (Auto) Urine RBC (Auto) Urine Casts (Auto) U Epithel Cells (Auto) Urine Bacteria (Auto) Alcohol, Quantitative Cancelled Blood Type Antibody Screen 08/26/19 08/27/19 08/27/19 18:25 00:00 00:02 WBC RBC Hgb Hct MCV MCH MCHC RDW Plt Count MPV Absolute Neuts (auto) Neutrophils % Lymphocytes % Monocytes % Eosinophils % Basophils % Nucleated RBC % PT with INR INR PTT (Actin FS) Sodium Potassium Chloride Carbon Dioxide Anion Gap BUN Creatinine Est GFR (CKD-EPI)AfAm Est GFR (CKD-EPI)NonAf POC Glucometer 166 Random Glucose Hemoglobin A1c % Calcium Phosphorus Magnesium Total Bilirubin AST ALT Alkaline Phosphatase Creatine Kinase Troponin I Total Protein Albumin Triglycerides 78 Cholesterol 185 Total LDL Cholesterol 65 HDL Cholesterol 97 H Vitamin B12 Serum Folate Urine Color Yellow Urine Appearance Clear Urine pH 5.5 Ur Specific [place] 1.005 L Urine Protein 1+ H Urine Glucose (UA) Negative Urine Ketones Negative Urine Blood Negative Urine Nitrite Negative Urine Bilirubin Negative Urine Urobilinogen 0.2 Ur Leukocyte Esterase Negative Urine WBC (Auto) 0 Urine RBC (Auto) 0 Urine Casts (Auto) 1 U Epithel Cells (Auto) 0.1 Urine Bacteria (Auto) 0.3 Alcohol, Quantitative 86.3 H Blood Type Antibody Screen 08/27/19 08/27/19 08/27/19 05:40 05:40 05:40 WBC 4.1 RBC 2.66 L Hgb 9.5 L Hct 27.5 L MCV 103.4 H MCH 35.8 H MCHC 34.7 RDW 13.1 Plt Count 206 MPV 7.2 L Absolute Neuts (auto) 2.0 Neutrophils % 47.9 Lymphocytes % 33.7 Monocytes % 12.8 H Eosinophils % 4.6 H Basophils % 1.0 Nucleated RBC % 0 PT with INR INR PTT (Actin FS) Sodium 138 Potassium 4.2 Chloride 101 Carbon Dioxide 28 Anion Gap 8 BUN 8.7 Creatinine 0.6 Est GFR (CKD-EPI)AfAm 120.58 Est GFR (CKD-EPI)NonAf 104.04 POC Glucometer Random Glucose 157 H Hemoglobin A1c % 5.9 Calcium 8.8 Phosphorus 3.2 Magnesium 1.9 Total Bilirubin 0.3 AST 17 ALT 32 Alkaline Phosphatase 53 Creatine Kinase Troponin I Total Protein 5.9 L Albumin 3.3 L Triglycerides Cholesterol Total LDL Cholesterol HDL Cholesterol Vitamin B12 652 Serum Folate 86 H Urine Color Urine Appearance Urine pH Ur Specific [place] Urine Protein Urine Glucose (UA) Urine Ketones Urine Blood Urine Nitrite Urine Bilirubin Urine Urobilinogen Ur Leukocyte Esterase Urine WBC (Auto) Urine RBC (Auto) Urine Casts (Auto) U Epithel Cells (Auto) Urine Bacteria (Auto) Alcohol, Quantitative Blood Type Antibody Screen 08/27/19 06:54 WBC RBC Hgb Hct MCV MCH MCHC RDW Plt Count MPV Absolute Neuts (auto) Neutrophils % Lymphocytes % Monocytes % Eosinophils % Basophils % Nucleated RBC % PT with INR INR PTT (Actin FS) Sodium Potassium Chloride Carbon Dioxide Anion Gap BUN Creatinine Est GFR (CKD-EPI)AfAm Est GFR (CKD-EPI)NonAf POC Glucometer 136 Random Glucose Hemoglobin A1c % Calcium Phosphorus Magnesium Total Bilirubin AST ALT Alkaline Phosphatase Creatine Kinase Troponin I Total Protein Albumin Triglycerides Cholesterol Total LDL Cholesterol HDL Cholesterol Vitamin B12 Serum Folate Urine Color Urine Appearance Urine pH Ur Specific [place] Urine Protein Urine Glucose (UA) Urine Ketones Urine Blood Urine Nitrite Urine Bilirubin Urine Urobilinogen Ur Leukocyte Esterase Urine WBC (Auto) Urine RBC (Auto) Urine Casts (Auto) U Epithel Cells (Auto) Urine Bacteria (Auto) Alcohol, Quantitative Blood Type Antibody Screen Current Medications Generic Name Dose Route Start Last Admin Trade Name Freq PRN Reason Stop Dose Admin Aspirin 81 mg 08/27/19 10:00 08/27/19 11:12 Ecotrin - PO 81 mg DAILY MARISOL Administration Atorvastatin Calcium 40 mg 08/27/19 22:00 Lipitor - PO HS MARISOL Chlordiazepoxide HCl 10 mg 08/28/19 00:00 Librium - PO 08/28/19 23:59 Q12H PRN Signs/symptoms of Withdrawal Chlordiazepoxide HCl 10 mg 08/26/19 23:21 Librium - PO 08/27/19 23:59 Q8H PRN Signs/symptoms of Withdrawal Chlordiazepoxide HCl 25 mg 08/27/19 05:00 08/27/19 13:11 Librium - PO 08/27/19 21:01 25 mg Q8H MARISOL Administration Chlordiazepoxide HCl 15 mg 08/28/19 05:00 Librium - PO 08/28/19 21:01 Q8H MARISOL Chlordiazepoxide HCl 10 mg 08/29/19 05:00 Librium - PO 08/29/19 21:01 Q8H MARISOL Chlordiazepoxide HCl 10 mg 08/30/19 05:00 Librium - PO 08/30/19 05:01 ONCE ONE Folic Acid 1 mg 08/27/19 10:00 08/27/19 11:12 Folic Acid - PO 1 mg DAILY MARISOL Administration Heparin Sodium (Porcine) 5,000 unit 08/27/19 06:00 08/27/19 13:11 Heparin - SQ 5,000 unit TID MARISOL Administration Sodium Chloride 1,000 mls @ 83 mls/hr 08/27/19 03:55 08/27/19 06:48 Normal Saline - IV Not Given ASDIR [facility] Multivitamins/Minerals/Vitamin C 1 tab 08/27/19 10:00 08/27/19 11:13 Tab-A-Vit - PO 1 tab DAILY MARISOL Administration Phenytoin Sodium 100 mg 08/27/19 06:00 08/27/19 11:12 Dilantin - PO 100 mg Q6HPO MARISOL Administration Thiamine HCl 100 mg 08/27/19 10:00 08/27/19 11:12 Vitamin B1 - PO 100 mg DAILY MARISOL Administration Home Medications Medication Instructions Recorded Acarbose 50 mg PO TID 08/26/19 Acetaminophen 500 mg PO ASDIR 08/27/19 Albuterol Sulfate Inhaler - 1 - 2 inh PO QID 08/27/19 [Ventolin Hfa Inhaler -] Alprazolam [Xanax] 1 mg PO ASDIR 08/27/19 Amlodipine Besylate [Norvasc -] 10 mg PO DAILY 08/27/19 Ascorbate Calcium [Vitamin C] 500 mg PO DAILY 08/27/19 Aspirin [ASA -] 81 mg PO DAILY 08/27/19 Cholecalciferol (Vitamin D3) 5,000 unit PO ASDIR 08/27/19 [Vitamin D3] Cyanocobalamin [Vitamin B12 -] 1,000 mcg PO DAILY 08/27/19 Ferrous Sulfate [Feosol] 325 mg PO BID 08/27/19 Folic Acid 1 mg PO DAILY 08/27/19 Glipizide 5 mg PO BID 08/27/19 Lisinopril 20 mg PO DAILY 08/27/19 Metoprolol Tartrate 50 mg PO BID 08/27/19 Omeprazole Magnesium 40 mg PO DAILY 08/27/19 Paroxetine HCl 20 mg PO DAILY 08/27/19 Simvastatin [Zocor] 20 mg PO HS 08/27/19 Tamsulosin HCl 0.4 mg PO DAILY 08/27/19 Thiamine HCl [Vitamin B1] 100 mg PO ASDIR 08/27/19 Zolpidem Tartrate [Ambien] 5 mg PO HS PRN 08/27/19 metFORMIN HCL [Metformin HCl] 500 mg PO BID 08/27/19 ASSESSMENT AND PLAN: 68 year old male with 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 1. Ataxia CT Head - no acute intracranial findings. MRI - Chronic lacuar infarct L basal ganglia. MRA noted. Carotid Duplex - no hemodynamically significant stenosis. Echo requested On Aspirin/Statin Neuro consult for possible intensification of cerebrovascular disease secondary prevention. PT/ST 2. Alcohol Intoxication - resolving. Mild tremor of UEs, apparently chronic No clear evidence of alcohol withdrawal. Continue Librium protocol as per Addiction medicine. MVI, Thiamine, Folic Acid 3. DM 2 - maintain on sliding scale. Glipizide/Metformin held. 4. BPH - continue Tamsulosin 5. HTN - continue Norvasc, Lisinopril, Metoprolol. 6. Depression/Anxiety - Stable. Continue Xanax, Paroxetine. 7. Macrocytic Anemia - B12/Folate not deficient Likely secondary to alcohol excess. 8, Hyponatremia sec to dehydration/beer potomania - resolved with IV hydration. DVT Px - Heparin SQ
[2019-08-27] MEDS ORDERED: ALPRAZolam 1 MG TABLET PO PRN (14:07)
[2019-08-27] MEDS ORDERED: PATIENT'S OWN MEDICATION (NON-FORMULARY) (Acarbose 50 MG) PO SCH (14:15)
[2019-08-27] MEDS: LISINOPRIL 20 MG TABLET (FP) PO SCH (14:36)
[2019-08-27] MEDS: FERROUS SO4 325 MG TABLET (FP) PO SCH ×2 (14:36→21:13)
[2019-08-27] MEDS: amLODIPine BESYLATE 10 MG TABLET (FP) PO SCH (14:36)
[2019-08-27] MEDS: PANTOPRAZOLE 40 MG TABLET (FP) PO SCH (14:36)
[2019-08-27] MEDS: CYANOCOBALAMIN 1,000 MCG TABLET (FP) PO SCH (14:36)
[2019-08-27] MEDS: METOPROLOL TARTRATE 50 MG TABLET (FP) PO SCH ×2 (14:36→21:13)
[2019-08-27] MEDS ORDERED: PARoxetine HCL 10 MG TABLET ONE (17:21)
[2019-08-27] MEDS: INSULIN SLIDING SCALE (NOVOLOG) 1 VIAL SQ SCH ×2 (17:27→21:40)
[2019-08-27] MEDS: PARoxetine HCL 20 MG TABLET PO SCH (17:27)
[2019-08-27] MEDS ORDERED: FLU VACCINE QUAD 60 MCG/0.5 ML (MDV 19-20) IM ONE (17:38)
[2019-08-27] MEDS ORDERED: PNEUMOC 13-VAL CONJ-DIP CRM/PF 0.5 ML DISP.SYRIN IM ONE (17:38)
[2019-08-27] MEDS ORDERED: ATORVASTATIN CA 40 MG TABLET (FP) PO SCH (22:00)
--- NOTE | 2019-08-27 22:48 | CONSULT ---
Consult - text type - Consultation Consultation Note: NEUROLOGY CONSULTATION is greatly appreciated: This 68 yo RH man with h/o HTN, alcoholism, "CVA', " and "Parkinson's disease" and "Seizures" is admitted with the subacute worsening of gait. Maintained on: Acarbose; Alprazolam; Amlodipine; Cyanocobalamin; Glipizide; Glyburide/Metformin; Lisinopril; Omeprazole; Paroxetine; Phenytoin Na Extended [ Dilantin -] 100 mg PO Q6H; Zocor; and, Zolpidem Tartrate. MRI of brain (Reviewed): Diffuse atrophy, ex-vacuo ventricular enlargement and diffuse microvascular changes and lacunar infarcts. MR Angio: Normal JCT=190; G75=222 pg%; BAL= 86.3 mg%. Started on Librium JAVY: No head trauma. No bruits. Cor Reg. NEURO: Awake, alert but intermittently agitated, punching his pillow. Speech fluent in [place] [facility], Jul, 2019. Recalls 1 of 3. CN II-XII: No nystagmus. Mild left facial (Morse's) Palsy with left hemifacial spasm. Remainder CN Normal Motor: No drift, tremor or cogwheel rigidity. Normal stength and bulk. Decreased KJ's absent AJ's. Toes downgoing Coord: No FTN dystaxia Sensory: Feels vibration on feet. Gait: Wide based and shuffling. IMP: 1. Mild B/L cerebral dysfunction (OMS) 2. 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 Intoxication. Observe for ETOH withdrawal SUGGEST: Thiamine 250 mg IVPB stat and q8 hrs x 3 days Check TSH, Dilantin level, ammonia level Continue librium by detox protocol. patient services rep. Thank you very much, Landry Jacques MD
[2019-08-27] MEDS: THIAMINE HCL 200 MG/2 ML VIAL IVPB SCH (23:19)
[2019-08-28] MEDS ORDERED: chlordiazePOXIDE HCL 10 MG CAPSULE PO PRN
[2019-08-28] MEDS: THIAMINE HCL 200 MG/2 ML VIAL IVPB SCH ×2 (04:07→12:51)
[2019-08-28] MEDS: PHENYTOIN NA EXTENDED 100 MG CAPSULE (FP) PO SCH ×2 (06:18→13:07)
[2019-08-28] MEDS: HEPARIN NA (PORCINE) 5,000 UNITS/ML 1ML VIAL SQ SCH ×2 (06:18→13:06)
[2019-08-28] MEDS: chlordiazePOXIDE 5 MG CAPSULE PO SCH ×2 (06:18→13:58)
[2019-08-28] MEDS: INSULIN SLIDING SCALE (NOVOLOG) 1 VIAL SQ SCH (06:19)
[2019-08-28 08:09] LABS: HEMATOCRIT 28.1 % (35.4-49); HEMOGLOBIN 10.3 GM/dL (11.7-16.9); MCH 38.2 pg (25.7-33.7); MCHC 36.5 g/dl (32.0-35.9); MEAN CELL VOLUME 104.7 fl (80-96); MEAN PLT VOLUME 7.6 fl (7.5-11.1); PLATELET COUNT 208 K/MM3 (134-434); RBC 2.69 M/mm3 (4.00-5.60); RDW 13.4 % (11.9-15.9); WHITE BLOOD COUNT 7.7 K/mm3 (4.0-10.0)
[2019-08-28] MEDS ORDERED: INSULIN SLIDING SCALE (NOVOLOG) 1 VIAL SQ SCH (08:29)
[2019-08-28 08:30] VITALS: TEMP 98.8
[2019-08-28] MEDS ORDERED: TAMSULOSIN HCL 0.4 MG CAP PO SCH (08:30)
[2019-08-28 08:53] LABS: BLOOD UREA NITROGEN 9.5 mg/dL (7-18); CALCIUM 8.7 mg/dL (8.5-10.1); CREATININE 0.7 mg/dL (0.55-1.3); MAGNESIUM 1.6 mg/dL (1.8-2.4); PHOSPHOROUS 4.3 mg/dL (2.5-4.9); POTASSIUM 3.7 mmol/L (3.5-5.1)
[2019-08-28] MEDS ORDERED: MAGNESIUM SULF 50% (8.12 MEQ/2 ML-1 GM VIAL) IVPB ONE (09:45)
[2019-08-28] MEDS ORDERED: PARoxetine HCL 10 MG TABLET ONE (10:29)
[2019-08-28] MEDS: amLODIPine BESYLATE 10 MG TABLET (FP) PO SCH (10:36)
[2019-08-28] MEDS: FERROUS SO4 325 MG TABLET (FP) PO SCH (10:37)
[2019-08-28] MEDS: FOLIC ACID 1 MG TABLET (FP) PO SCH (10:37)
[2019-08-28] MEDS: PANTOPRAZOLE 40 MG TABLET (FP) PO SCH (10:37)
[2019-08-28] MEDS: MULTIVITAMINS (DAILY MVI) TABLET (FP) PO SCH (10:38)
[2019-08-28] MEDS: ASPIRIN COATED 81 MG TABLET.EC PO SCH (10:38)
[2019-08-28] MEDS: METOPROLOL TARTRATE 50 MG TABLET (FP) PO SCH (10:38)
[2019-08-28] MEDS: LISINOPRIL 20 MG TABLET (FP) PO SCH (10:38)
[2019-08-28] MEDS: CYANOCOBALAMIN 1,000 MCG TABLET (FP) PO SCH (10:38)
[2019-08-28] MEDS: PARoxetine HCL 20 MG TABLET PO SCH (10:39)
--- NOTE | 2019-08-28 11:21 | PN ---
Teaching Attending Note Name of Resident: Greg Lovellung ATTENDING PHYSICIAN STATEMENT I saw and evaluated the patient. I reviewed the resident's note and discussed the case with the resident. I agree with the resident's findings and plan as documented. SUBJECTIVE: Feels well, creports improving gait. No focal complaints. No headache/visual disturbance. No new slurring of speech. No numbness/tingling. OBJECTIVE: Afebrile, hemodynamically Stable. No tremor, diaphpoesis, palpitations, hallucinations Last Vital Signs Temp Pulse Resp BP Pulse Ox 98.8 F 71 18 139/80 98 08/28/19 08:30 08/28/19 08:30 08/28/19 08:30 08/28/19 08:30 08/27/19 20:12 HEENT - Atraumatic, L facial droop (chronic) Heart - S1, S2, RRR Lungs - clear to auscultation Abdomen - Soft, non-tender. Bowel Sounds normal Extremities - no edema, no calf tenderness. Neuro - AAO x 3. Trace reduction in power LUE and LLE. Laboratory Results - last 24 hr 08/27/19 08/27/19 08/27/19 05:40 17:12 21:10 WBC RBC Hgb Hct MCV MCH MCHC RDW Plt Count MPV Sodium 138 Potassium 4.2 Chloride 101 Carbon Dioxide 28 Anion Gap 8 BUN 8.7 Creatinine 0.6 Est GFR (CKD-EPI)AfAm 120.58 Est GFR (CKD-EPI)NonAf 104.04 POC Glucometer 320 95 Random Glucose 157 H Calcium 8.8 Phosphorus 3.2 Magnesium 1.9 Total Bilirubin 0.3 AST 17 ALT 32 Alkaline Phosphatase 53 Ammonia Total Protein 5.9 L Albumin 3.3 L Vitamin B12 652 Serum Folate 86 H TSH 08/28/19 08/28/19 08/28/19 05:25 05:25 05:25 WBC 7.7 RBC 2.69 L Hgb 10.3 L Hct 28.1 L MCV 104.7 H MCH 38.2 H MCHC 36.5 H RDW 13.4 Plt Count 208 MPV 7.6 Sodium 136 Potassium 3.7 Chloride 100 Carbon Dioxide 28 Anion Gap 8 BUN 9.5 Creatinine 0.7 Est GFR (CKD-EPI)AfAm 113.18 Est GFR (CKD-EPI)NonAf 97.65 POC Glucometer Random Glucose 147 H Calcium 8.7 Phosphorus 4.3 Magnesium 1.6 L Total Bilirubin AST ALT Alkaline Phosphatase Ammonia 30.00 Total Protein Albumin Vitamin B12 Serum Folate TSH 2.27 D 08/28/19 06:16 WBC RBC Hgb Hct MCV MCH MCHC RDW Plt Count MPV Sodium Potassium Chloride Carbon Dioxide Anion Gap BUN Creatinine Est GFR (CKD-EPI)AfAm Est GFR (CKD-EPI)NonAf POC Glucometer 173 Random Glucose Calcium Phosphorus Magnesium Total Bilirubin AST ALT Alkaline Phosphatase Ammonia Total Protein Albumin Vitamin B12 Serum Folate TSH Current Medications Generic Name Dose Route Start Last Admin Trade Name Freq PRN Reason Stop Dose Admin Albuterol Sulfate 2 puff 08/27/19 13:56 Ventolin Hfa Inhaler - IH Q6H PRN SHORT OF BREATH/WHEEZING Alprazolam 1 mg 08/27/19 14:07 Xanax PO Q8H PRN ANXIETY Amlodipine Besylate 10 mg 08/27/19 14:00 08/28/19 10:36 Norvasc - PO 10 mg DAILY MARISOL Administration Aspirin 81 mg 08/27/19 10:00 08/28/19 10:38 Ecotrin - PO 81 mg DAILY MARISOL Administration Atorvastatin Calcium 40 mg 08/27/19 22:00 08/27/19 21:12 Lipitor - PO 40 mg HS MARISOL Administration Chlordiazepoxide HCl 10 mg 08/28/19 00:00 Librium - PO 08/28/19 23:59 Q12H PRN Signs/symptoms of Withdrawal Chlordiazepoxide HCl 15 mg 08/28/19 05:00 08/28/19 06:18 Librium - PO 08/28/19 21:01 15 mg Q8H MARISOL Administration Chlordiazepoxide HCl 10 mg 08/29/19 05:00 Librium - PO 08/29/19 21:01 Q8H MARISOL Chlordiazepoxide HCl 10 mg 08/30/19 05:00 Librium - PO 08/30/19 05:01 ONCE ONE Cyanocobalamin 1,000 mcg 08/27/19 14:00 08/28/19 10:38 Vitamin B12 - PO 1,000 mcg DAILY MARISOL Administration Ferrous Sulfate 325 mg 08/27/19 14:00 08/28/19 10:37 Feosol - PO 325 mg BID MARISOL Administration Folic Acid 1 mg 08/27/19 10:00 08/28/19 10:37 Folic Acid - PO 1 mg DAILY MARISOL Administration Heparin Sodium (Porcine) 5,000 unit 08/27/19 06:00 08/28/19 06:18 Heparin - SQ 5,000 unit TID MARISOL Administration Insulin Aspart 1 vial 08/28/19 08:29 Novolog Vial Sliding Scale - SQ ACHS [facility] Protocol Lisinopril 20 mg 08/27/19 14:00 08/28/19 10:38 Prinivil PO 20 mg DAILY MARISOL Administration Metoprolol Tartrate 50 mg 08/27/19 14:00 08/28/19 10:38 Lopressor - PO 50 mg BID MARISOL Administration Multivitamins/Minerals/Vitamin C 1 tab 08/27/19 10:00 08/28/19 10:38 Tab-A-Vit - PO 1 tab DAILY MARISOL Administration Non-Formulary Medication 5,000 unit 08/27/19 14:00 Cholecalciferol (Vitamin D3) [Vitamin D3] PO ASDIR [facility] Non-Formulary Medication 50 mg 08/27/19 14:15 Acarbose PO TID [facility] Pantoprazole Sodium 40 mg 08/27/19 14:15 08/28/19 10:37 Protonix - PO 40 mg DAILY MARISOL Administration Paroxetine HCl 20 mg 08/27/19 14:00 08/28/19 10:39 Paxil - PO 20 mg DAILY MARISOL Administration Phenytoin Sodium 100 mg 08/27/19 06:00 08/28/19 06:18 Dilantin - PO 100 mg Q6HPO MARISOL Administration Tamsulosin HCl 0.4 mg 08/28/19 08:30 08/28/19 10:37 Flomax - PO 0.4 mg DAILY@0830 [facility] Administration Thiamine HCl 250 mg 08/27/19 23:15 08/28/19 04:07 Vitamin B1 Injection - IVPB 250 mg Q8H-IV MARISOL Administration Home Medications Medication Instructions Recorded Acarbose 50 mg PO TID 08/26/19 Acetaminophen 500 mg PO ASDIR 08/27/19 Albuterol Sulfate Inhaler - 1 - 2 inh PO QID 08/27/19 [Ventolin Hfa Inhaler -] Alprazolam [Xanax] 1 mg PO ASDIR 08/27/19 Amlodipine Besylate [Norvasc -] 10 mg PO DAILY 08/27/19 Ascorbate Calcium [Vitamin C] 500 mg PO DAILY 08/27/19 Aspirin [ASA -] 81 mg PO DAILY 08/27/19 Cholecalciferol (Vitamin D3) 5,000 unit PO ASDIR 08/27/19 [Vitamin D3] Cyanocobalamin [Vitamin B12 -] 1,000 mcg PO DAILY 08/27/19 Ferrous Sulfate [Feosol] 325 mg PO BID 08/27/19 Folic Acid 1 mg PO DAILY 08/27/19 Glipizide 5 mg PO BID 08/27/19 Lisinopril 20 mg PO DAILY 08/27/19 Metoprolol Tartrate 50 mg PO BID 08/27/19 Omeprazole Magnesium 40 mg PO DAILY 08/27/19 Paroxetine HCl 20 mg PO DAILY 08/27/19 Phenytoin Sodium Extended 100 mg PO Q6H 08/27/19 Simvastatin [Zocor] 20 mg PO HS 08/27/19 Tamsulosin HCl 0.4 mg PO DAILY 08/27/19 Thiamine HCl [Vitamin B1] 100 mg PO ASDIR 08/27/19 Zolpidem Tartrate [Ambien] 5 mg PO HS PRN 08/27/19 metFORMIN HCL [Metformin HCl] 500 mg PO BID 08/27/19 ASSESSMENT AND PLAN: 68 year old male with 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 1. Ataxia - progressive, chronic alcohol related cerebellar dysfunction versus acute CVA Facial droop chronic sec to [place] Palsy as per Neuro. CT Head - no acute intracranial findings. MRI - small R infarct in lateral midbrain, Chronic lacuar infarct L basal ganglia. MRA noted. Carotid Duplex - no hemodynamically significant stenosis. Echo normal On Aspirin/Statin Neuro consult for possible intensification of cerebrovascular disease secondary prevention - recommends IV Thiamine. PT 2. Alcohol Intoxication - resolving. No clear evidence of alcohol withdrawal. Continue Librium protocol as per Addiction medicine. MVI, Thiamine, Folic Acid Agrees for transfer to [facility]. 3. DM 2 - maintain on sliding scale. Glipizide/Metformin held. 4. BPH - continue Tamsulosin 5. HTN - continue Norvasc, Lisinopril, Metoprolol. 6. Depression/Anxiety - Stable. Continue Xanax, Paroxetine. 7. Macrocytic Anemia - Likely secondary to alcohol excess. B12/Folate not deficient 8, Hyponatremia sec to dehydration/beer potomania - resolved with IV hydration. 9. Hypomagnesemia - repleted. DVT Px - Heparin SQ
[2019-08-28 14:04] VITALS: BP 132/72; PULSE 77
--- NOTE | 2019-08-28 15:24 | DS ---
Physical Exam: SUBJECTIVE: Patient seen and examined NAEON. Denies weakness. Expresses desire to leave AMA. OBJECTIVE: Vital Signs Period Temp Pulse Resp BP Sys/Anderson Pulse Ox Last 24 Hr 98.0 F-98.8 F 68-84 14-18 118-148/66-92 98-98 PHYSICAL EXAM GENERAL: The patient is awake, alert, and fully oriented. NAD. CIWA 1(fine tremors) HEAD: NC/AT EYES: extraocular movements intact, sclera anicteric, conjunctiva clear ENT: Ears normal, nares patent, oropharynx clear without exudates, moist mucous membranes. NECK: Trachea midline, full range of motion, supple. LUNGS: Breath sounds equal, clear to auscultation bilaterally, no wheezes, no crackles, no accessory muscle use. HEART: Regular rate and rhythm, S1, S2 without murmur, rub or gallop. ABDOMEN: Soft, nontender, nondistended, no guarding, no rebound. EXTREMITIES: 2+ pulses, warm, well-perfused, no edema. NEUROLOGICAL: Normal speech, gait not observed. Left facial droop noted with smiling. Left decal cutter strength 4/5 PSYCH: Normal mood, normal affect. SKIN: Warm, dry, normal turgor, no rashes or lesions noted LABS Laboratory Results - last 24 hr 08/27/19 08/27/19 08/28/19 17:12 21:10 05:25 WBC 7.7 RBC 2.69 L Hgb 10.3 L Hct 28.1 L MCV 104.7 H MCH 38.2 H MCHC 36.5 H RDW 13.4 Plt Count 208 MPV 7.6 Sodium Potassium Chloride Carbon Dioxide Anion Gap BUN Creatinine Est GFR (CKD-EPI)AfAm Est GFR (CKD-EPI)NonAf POC Glucometer 320 95 Random Glucose Calcium Phosphorus Magnesium Ammonia TSH Phenytoin 08/28/19 08/28/19 08/28/19 05:25 05:25 06:16 WBC RBC Hgb Hct MCV MCH MCHC RDW Plt Count MPV Sodium 136 Potassium 3.7 Chloride 100 Carbon Dioxide 28 Anion Gap 8 BUN 9.5 Creatinine 0.7 Est GFR (CKD-EPI)AfAm 113.18 Est GFR (CKD-EPI)NonAf 97.65 POC Glucometer 173 Random Glucose 147 H Calcium 8.7 Phosphorus 4.3 Magnesium 1.6 L Ammonia 30.00 TSH 2.27 D Phenytoin 08/28/19 08/28/19 09:45 12:06 WBC RBC Hgb Hct MCV MCH MCHC RDW Plt Count MPV Sodium Potassium Chloride Carbon Dioxide Anion Gap BUN Creatinine Est GFR (CKD-EPI)AfAm Est GFR (CKD-EPI)NonAf POC Glucometer 253 Random Glucose Calcium Phosphorus Magnesium Ammonia TSH Phenytoin 12.6 HOSPITAL COURSE: Patient is a 68 year old Vietnamese speaking male with past medical history NIDDM, HTN, 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 Parkinson's Disease, and alcoholism(4-6beers daily) who presents to the ED with cc of acutely worse left lower extremity weakness causing unsteady gait for the past 24hrs. Weakness and unsteady gait resolving. CTH neg for infarct. MRI brain showing loss of brain prenchymal volume w/ involutional changes, chronic lacunar infarct of the Left basal ganglia, 5mm infarct w/in lateral aspect of the Right-side of midbrain. S&S recommending regular diet. US carotid w/o significant stenosis. Neuro(Georgie) recommended thiamine IV x3d. Physical therapist had the patient ambulate 200ft with RW. Patient was started on librium protocol on admission, w/o documented CIWA, d/t concern of h/o seizures( unknown if EtOH-withdrawl). Patient did not exhibit any new neurological findings. Patient expressing being upset about staying for detox. He choose to leave AMA. [employer] inerpreter(documented on AMA form) used to explain risks. Patient signed paperwork. Date of Admission:08/26/19 Date of Discharge: 08/28/19 Minutes to complete discharge: 20 Discharge Summary Problems reviewed: Yes Reason For Visit: ATAXIA Condition: Guarded - Instructions Diet, Activity, Other Instructions: You were evaluated in the hospital for abnormal walking. Labwork showed an elevated alcohol level. Imaging showed a small area of stroke. Neurology evaluation determined that you do not have any new neurological deficits. You were given a medication to prevent alcohol-related seizures. YOu will be discharged to [facility] to complete detox Medications: - Thiamine 250mg IV, every 8 hours for 2 more days - complete your Librium regimen at [facility] - continue with your previously scheduled home medications Please follow-up with the physicians below: - PCP: for follow-up labwork to recheck electrolytes - Neurologist(Dr Jacques): to follow-up for your small stroke Additional instructions: - avoid excessive use of substances(eg. alcohol, illegal drugs) - diet: maintain a heart healthy diet(ie. low fat, low sugar, high fiber) Please seek immediate medical evaluation or go to the Emergency Department if you experience: - headaches, dizziness, irregular walk, weakness of the limbs, trouble speaking - severe tremors, or seizures Referrals: Carlene Garcia MD [Primary Care Provider] - Landry Jacques MD [Staff Physician] - Disposition: AGAINST MEDICAL ADVICE - Home Medications Comprehensive Discharge Medication List: Ambulatory Orders Acarbose 50 mg PO TID 08/26/19 Acetaminophen 500 mg PO ASDIR 08/27/19 Albuterol Sulfate Inhaler - [Ventolin HFA Inhaler -] 1 - 2 inh PO QID 08/27/19 Alprazolam [Xanax] 1 mg PO ASDIR 08/27/19 Amlodipine Besylate [Norvasc -] 10 mg PO DAILY 08/27/19 Ascorbate Calcium [Vitamin C] 500 mg PO DAILY 08/27/19 Aspirin [ASA -] 81 mg PO DAILY 08/27/19 Cholecalciferol (Vitamin D3) [Vitamin D3] 5,000 unit PO ASDIR 08/27/19 Cyanocobalamin [Vitamin B12 -] 1,000 mcg PO DAILY 08/27/19 Ferrous Sulfate [Feosol] 325 mg PO BID 08/27/19 Glipizide 5 mg PO BID 08/27/19 Lisinopril 20 mg PO DAILY 08/27/19 Metoprolol Tartrate 50 mg PO BID 08/27/19 Omeprazole Magnesium 40 mg PO DAILY 08/27/19 Paroxetine HCl 20 mg PO DAILY 08/27/19 Phenytoin Sodium Extended 100 mg PO Q6H 08/27/19 Tamsulosin HCl 0.4 mg PO DAILY 08/27/19 Zolpidem Tartrate [Ambien] 5 mg PO HS PRN 08/27/19 metFORMIN HCL [Metformin HCl] 500 mg PO BID 08/27/19 Atorvastatin Ca [Lipitor] 40 mg PO HS tablet 08/28/19 Folic Acid 1 mg PO DAILY #30 tablet 08/28/19 Folic Acid - 1 mg PO DAILY tablet 08/28/19 Multivitamins [Multivit ([facility] Formulary)] 1 tab PO DAILY tab 08/28/19 Phenytoin Na Extended [Dilantin -] 100 mg PO Q6HPO capsule 08/28/19 Thiamine HCl [Vitamin B1 -] 100 mg PO ASDIR 30 Days #30 tablet 08/28/19 Walker [Ultra-Light Rollator] 1 each MC DAILY #1 each 08/28/19 This patient is new to me today: No Emergency Visit: No Critical Care patient: No - Discharge Referral Referred to [facility] Med P.C.: No ATTENDING PHYSICIAN STATEMENT I saw and evaluated the patient. I reviewed the resident's note and discussed the case with the resident. I agree with the resident's findings and plan as documented. SUBJECTIVE: OBJECTIVE: ASSESSMENT AND PLAN:
[2019-08-29] MEDS ORDERED: chlordiazePOXIDE HCL 10 MG CAPSULE PO SCH (05:00)
[2019-08-30] MEDS ORDERED: chlordiazePOXIDE HCL 10 MG CAPSULE PO ONE (05:00)
== END 2019-08-28 14:45 | disposition left against medical advice (07) | DRG 57 ==
LOC: JER 16:30 → MERGE 18:07 → JERBED 18:07 → J4S 08-27 00:53
PROVIDERS: ADMIT Internal Medicine
DX: G31.9 Degenerative disease of nervous system, unspecified (principal); I69.354 Hemiplegia and hemiparesis following cerebral infarction affecting left non-dominant side; E87.1 Hypo-osmolality and hyponatremia; F10.230 Alcohol dependence with withdrawal, uncomplicated; I69.392 Facial weakness following cerebral infarction; E11.9 Type 2 diabetes mellitus without complications; I10 Essential (primary) hypertension; G20 Parkinson's disease; N40.0 Benign prostatic hyperplasia without lower urinary tract symptoms; E78.5 Hyperlipidemia, unspecified; Z79.84 Long term (current) use of oral hypoglycemic drugs; R27.0 Ataxia, unspecified; R68.0 Hypothermia, not associated with low environmental temperature; G40.909 Epilepsy, unspecified, not intractable, without status epilepticus; F10.220 Alcohol dependence with intoxication, uncomplicated; D53.9 Nutritional anemia, unspecified; E87.8 Other disorders of electrolyte and fluid balance, not elsewhere classified; F41.8 Other specified anxiety disorders; E86.0 Dehydration; G93.89 Other specified disorders of brain; G51.0 Bell's palsy; E83.42 Hypomagnesemia
CPT/HCPCS: 36415; 70450-TC; 70544-TC; 70551-TC; 71045-TC-FY; 73502-TC-LT-FY; 73552-TC-LT-FY; 80048; 80053; 80185; 80307; 81003; 82140; 82465; 82550; 82607; 82746; 82962; 83036; 83718; 83721; 83735; 84100; 84443; 84478; 84484; 85025; 85027; 85610; 85730; 86850; 86900; 86901; 90670; 93005; 93010; 93306-TC; 93880-TC; 97116-GP; 97161-GP; 99285-25; G0008; G0009; J1644; J7030; Q2036

== ENCOUNTER 2020-05-30 00:47 | Inpatient (IN) | payer OTHER ==
--- NOTE | 2020-05-30 01:03 | PDOC ---
Attending Attestation - Resident Resident Name: Gabriele Mccall - ED Attending Attestation I have performed the following: I have examined & evaluated the patient, The case was reviewed & discussed with the resident, I agree w/resident's findings & plan, Exceptions are as noted - HPI HPI: 05/30/20 00:58 69 yo male BIBA from home ,The EMS crew stated that his daughter called 911. HPI Accoring to EMS crew, the pt's daughter had spoken to the patient at 10 am today and felt he was confused . He did have a history of a stroke in the past and she was concerned so she drove from [place] and [employer] when she arrived in [place], she then called 911 05/30/20 01:55 05/30/20 02:06 pt has had h/o CVA - Physicial Exam PE: 05/30/20 02:06 wnwd 69 yo male BIBA for increasing left sided weakness, He states he has chronic L sided weakness following a stroke in the past head ncat neck supple lung no wheezing cvs [id number] abdomen flat,nontender skin warm and dry extremities no deformities neuro alert and speaking Divehi, mild left facial droop, drift w left arm and leg - Medical Decision Making 05/30/20 02:15 this pt is not clear as to exactly when his symptoms began but it was sometime earlier today, not this evening ct scan head no acute infarct or bleeds evident plan admit TIA.CVA Discharge - Discharge Information Problems reviewed: Yes Clinical Impression/Diagnosis: TIA (transient ischemic attack), Cerebrovascular accident (CVA), Cerebral ischemia Condition: Fair - Follow up/Referral - Patient Discharge Instructions - Post Discharge Activity
[2020-05-30] MEDS ORDERED: ACETAMINOPHEN 325 MG TABLET (FP) PO ONE (02:10)
--- NOTE | 2020-05-30 02:12 | PDOC ---
History of Present Illness - General Chief Complaint: Weakness Stated Complaint: POSSIBLE STROKE Time Seen by Provider: 05/30/20 00:58 - History of Present Illness Initial Comments: 05/30/20 02:11 69yo M w/ h/o CVA that left pt w/ L sided motor deficits p/w subjective acute on chronic Left sided weakness. He states that he feels more weak on the left than usual. He said he woke up from a nap and felt weakness on the L. He denies trauma, non-compliance with medication, leg swelling or pain. 06/05/20 12:19 Past History - Medical History Allergies/Adverse Reactions: Allergies Allergy/AdvReac Type Severity Reaction Status Date / Time No Known Allergies Allergy Verified 05/30/20 01:20 Home Medications: Ambulatory Orders Alprazolam [Xanax] 1 mg PO DAILY 08/27/19 Amlodipine Besylate [Norvasc -] 10 mg PO DAILY 08/27/19 Glipizide 5 mg PO BID 08/27/19 Lisinopril 20 mg PO DAILY 08/27/19 Zolpidem Tartrate [Ambien] 5 mg PO HS PRN 08/27/19 metFORMIN HCL [Metformin HCl] 500 mg PO BID 08/27/19 Multivitamins [Multivit ([facility] Formulary)] 1 tab PO DAILY tab 08/28/19 Acarbose [Precose -] 50 mg PO TID 05/30/20 [place]-3 Acid Ethyl Esters [Lovaza -] 1,000 mg PO BID 05/30/20 Omeprazole 40 mg PO DAILY 05/30/20 Paroxetine HCl [Paxil] 20 mg PO DAILY 05/30/20 Atorvastatin Ca [Lipitor] 40 mg PO HS 30 Days #30 tablet 06/01/20 Clopidogrel Bisulfate [Plavix -] 75 mg PO DAILY 30 Days #30 tablet 06/01/20 Folic Acid - 1 mg PO DAILY 30 Days #30 tablet 06/01/20 Phenytoin Sodium Extended 300 mg PO DAILY #30 capsule 06/01/20 Thiamine HCl [Vitamin B1 -] 100 mg PO DAILY 30 Days #30 tablet 06/01/20 Anemia: (unsure) Asthma: No Cancer: No Cardiac Disorders: No CVA: Yes (RES LLE WEAKNESS, LT FACIAL DROOP) COPD: No CHF: No Dementia: No Diabetes: Yes (NIDDM) GI Disorders: No Disorders: Yes (BPH) HTN: Yes Hypercholesterolemia: Yes Liver Disease: No Seizures: Yes Thyroid Disease: No - Surgical History Abdominal Surgery: No Appendectomy: No Cardiac Surgery: No Cholecystectomy: No Lung Surgery: No Neurologic Surgery: No Orthopedic Surgery: No - Psycho-Social/Smoking History Smoking History: Never smoked Have you smoked in the past 12 months: No Information on smoking cessation initiated: No - Substance Abuse Hx (Audit-C & DAST Scrn) How often the patient has a drink containing alcohol: Monthly or less How often the patient has six or more drinks on one occasion: Less than monthly Score: In Men: 4 or > Positive; In Women: 3 or > Positive: 2 Screen Result (Pos requires Nsg. Audit-10AR): Negative In the last yr the pt used illegal drug/Rx for NonMed reason: No Score: Yes response is considered Positive: 0 Screen Result (Positive result requires Nsg. DAST-10): Negative Review of Systems - Review of Systems Able to Perform ROS?: Yes Is the patient limited Bulgarian proficient: Yes Constitutional: Yes: Weakness. No: Diaphoresis, Fever HEENTM: No: Eye Pain, Blurred Vision, Ear Pain Respiratory: No: Cough, Shortness of Breath Cardiac (ROS): Yes: See HPI, Lightheadedness. No: Chest Pain, Chest Tightness ABD/GI: Yes: Nausea. No: Abdominal Distended, Vomiting Musculoskeletal: Yes: Muscle Weakness. No: Joint Swelling, Muscle Pain Integumentary: No: Change in Color, Erythema, Rash Neurological: Yes: Dizziness. No: Ataxia Psychiatric: No: Change in Appetite Endocrine: No: Increased Thirst Hematologic/Lymphatic: Yes: Blood Clots *Physical Exam - Vital Signs Last Vital Signs Temp Pulse Resp BP Pulse Ox 98.1 F 103 H 18 157/84 100 05/30/20 01:23 05/30/20 01:23 05/30/20 01:05/30/20 01:05/30/20 01:23 - Physical Exam General Appearance: Yes: Nourished, Appropriately Dressed. No: Apparent Distress, Disheveled HEENT: positive: EOMI, DULCE, Normal Voice. negative: Symmetrical (partial L eye palsy, apparent weakness of L obicularis charisma ) Neck: positive: Supple. negative: Tender, Rigidity Respiratory/Chest: positive: Lungs Clear, Normal Breath Sounds. negative: Chest Tender, Respiratory Distress Cardiovascular: positive: Regular Rhythm, Regular Rate, S1, S2 Gastrointestinal/Abdominal: positive: Normal Bowel Sounds, Soft. negative: Organomegaly, Distended Musculoskeletal: positive: Normal Inspection, Other (3/5 strength LUE and LLE) Extremity: positive: Normal Capillary Refill Integumentary: positive: Dry, Warm Neurologic: positive: Fully Oriented, Alert, Normal Mood/Affect ED Treatment Course - LABORATORY CBC & Chemistry Diagram: 06/01/20 05:37 06/01/20 05:37 - ADDITIONAL ORDERS Additional order review: Laboratory Results 05/30/20 01:12 POC Glucometer 182 05/30/20 01:12 POC Glucometer 182 - RADIOLOGY Radiology Studies Ordered: Category Date Time Status HEAD CT WITHOUT CONTRAST [CT] Stat CT Scan 05/30/20 00:58 Taken Medical Decision Making - Medical Decision Making 06/05/20 12:25 given history of prior CVA and subjective new weakness, plan to admit for neuro consult and possible TIA/CVA workup 06/05/20 12:25 Discharge - Discharge Information Problems reviewed: Yes Clinical Impression/Diagnosis: TIA (transient ischemic attack), Cerebrovascular accident (CVA), Cerebral ischemia Condition: Stable Disposition: HOME - Admission Yes - Follow up/Referral - Patient Discharge Instructions - Post Discharge Activity
[2020-05-30] MEDS ORDERED: ACETAMINOPHEN 325 MG TABLET (FP) ONE (02:19)
[2020-05-30 02:28] LABS: BASO % 0.3 % (0-2.0); EOS % 0.4 % (0-4.5); HEMATOCRIT 31.1 % (35.4-49); HEMOGLOBIN 10.7 GM/dL (11.7-16.9); LYMPH % 10.1 % (8-40); MCH 35.8 pg (25.7-33.7); MCHC 34.3 g/dl (32.0-35.9); MEAN CELL VOLUME 104.5 fl (80-96); MEAN PLT VOLUME 7.3 fl (7.5-11.1); NEUT % 82.2 % (42.8-82.8); PLATELET COUNT 204 K/MM3 (134-434); RBC 2.98 M/mm3 (4.00-5.60); RDW 13.2 % (11.9-15.9); WHITE BLOOD COUNT 6.5 K/mm3 (4.0-10.0)
[2020-05-30 02:37] LABS: INR 0.91 (0.83-1.09); PROTHROMBIN TIME (PATIENT) 10.7 SEC (9.7-13.0)
[2020-05-30 02:39] LABS: ACTIVATED PTT 23.4 SECONDS (25.2-36.5)
[2020-05-30 03:06] LABS: ALBUMIN 3.8 g/dl (3.4-5.0); ALK PHOS 53 U/L (45-117); ANION GAP 9 MMOL/L (8-16); BILIRUBIN,TOTAL 0.4 mg/dL (0.2-1); BLOOD UREA NITROGEN 12.7 mg/dL (7-18); CALCIUM 9.6 mg/dL (8.5-10.1); CHLORIDE 94 mmol/L (98-107); CO2 30 mmol/L (21-32); CREATININE 0.8 mg/dL (0.55-1.3); GLUCOSE,RANDOM 190 mg/dL (74-106); POTASSIUM 3.9 mmol/L (3.5-5.1); SGOT/AST 15 U/L (15-37); SGPT/ALT 20 U/L (13-61); SODIUM 133 mmol/L (136-145); TOT PROT 6.8 g/dl (6.4-8.2)
[2020-05-30 03:09] LABS: CHOLESTEROL 243 mg/dL (50-200); HDL CHOLESTEROL 131 mg/dL (40-60); LDL CHOLESTEROL (ONLY SJRH) 80 mg/dL (5-100); TRIGLYCERIDES 57 mg/dL (0-150)
[2020-05-30 03:29] LABS: EPI CELLS 5 /uL (0-25.1); HYALINE CASTS 1 /uL (0-3.1); URINE APPEARANCE CLEAR; URINE BACTERIA 11 /uL (0-1359); URINE BILIRUBIN NEGATIVE (NEGATIVE); URINE COLOR YELLOW; URINE GLUCOSE (UA) NEGATIVE (NEGATIVE); URINE KETONE 1+ (NEGATIVE); URINE LEUK ESTERASE NEGATIVE (NEGATIVE); URINE NITRITE NEGATIVE (NEGATIVE); URINE PROTEIN 3+ (NEGATIVE); URINE RBC 3 /uL (0-23.9); URINE UROBILINOGEN 0.2 mg/dL (0.2-1.0); URINE WBC 4 /uL (0-25.8)
--- NOTE | 2020-05-30 04:13 | PN ---
Teaching Attending Note Name of Resident: Valerie Shanks ATTENDING PHYSICIAN STATEMENT I saw and evaluated the patient. I reviewed the resident's note and discussed the case with the resident. I agree with the resident's findings and plan as documented. 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 The patient's daughter had spoken to the patient at 10 am today and felt he was confused. She was concerned so she drove from [place] and [facility] when she arrived in [place], she then called 911. There is also associated increasing left sided weakness that started earlier today. Patient denies chest pain, shortness of breath, abdominal pain, headache, palpitations, dizziness, fever, chills, nausea, vomiting, diarrhea, constipation, dysuria, frequency, urgency, melena, hematochezia or hematuria. Denies tobacco or illicit drug use. No sick contacts or recent travels. Family history is unremarkable. OBJECTIVE: Alert Vital Signs Period Temp Pulse Resp BP Sys/Anderson Pulse Ox Last 24 Hr 98.1 F-98.1 F 97-103 16-18 157-157/84-84 97-100 HEENT: No Jaundice, eye redness or discharge, PERRLA, EOMI. Left lower facial droop; Normocephalic, atraumatic. External ears are normal and hearing is grossly intact. No nasal discharge. Neck: Supple, nontender. No palpable adenopathy or thyromegaly. No JVD Chest: Good effort. Clear to auscultation and percussion. Heart: Regular. No S3, rub or murmur Abdomen: Not distended, soft, nontender and no HSM. No rebound or guarding. Normal bowel sounds. Ext: Peripheral pulses intact. No leg edema. Skin: Warm and dry. No petechiae, rash or ecchymosis. Neuro: Alert. Oriented x3. Left side hemiparesis with reduced sensation. Psych: Appropriate mood and affect. Good insight. Home Medications Medication Instructions Recorded Acarbose 50 mg PO TID 08/26/19 Albuterol Sulfate Inhaler - 1 - 2 inh PO QID 08/27/19 [Ventolin HFA Inhaler -] Alprazolam [Xanax] 1 mg PO ASDIR 08/27/19 Amlodipine Besylate [Norvasc -] 10 mg PO DAILY 08/27/19 Ascorbate Calcium [Vitamin C] 500 mg PO DAILY 08/27/19 Aspirin [ASA -] 81 mg PO DAILY 08/27/19 Cholecalciferol (Vitamin D3) 5,000 unit PO ASDIR 08/27/19 [Vitamin D3] Cyanocobalamin [Vitamin B12 -] 1,000 mcg PO DAILY 08/27/19 Ferrous Sulfate [Feosol] 325 mg PO BID 08/27/19 Glipizide 5 mg PO BID 08/27/19 Lisinopril 20 mg PO DAILY 08/27/19 Metoprolol Tartrate 50 mg PO BID 08/27/19 Omeprazole Magnesium 40 mg PO DAILY 08/27/19 Paroxetine HCl 20 mg PO DAILY 08/27/19 Zolpidem Tartrate [Ambien] 5 mg PO HS PRN 08/27/19 metFORMIN HCL [Metformin HCl] 500 mg PO BID 08/27/19 Atorvastatin Ca [Lipitor] 40 mg PO HS tablet 08/28/19 Folic Acid - 1 mg PO DAILY tablet 08/28/19 Multivitamins [Multivit ([facility] 1 tab PO DAILY tab 08/28/19 Formulary)] Phenytoin Na Extended [Dilantin -] 100 mg PO Q6HPO capsule 08/28/19 Thiamine HCl [Vitamin B1 -] 100 mg PO ASDIR 30 Days #30 tablet 08/28/19 Abnormal Lab Results 05/30/20 05/30/20 05/30/20 02:05 02:05 02:05 RBC 2.98 L Hgb 10.7 L Hct 31.1 L MCV 104.5 H MCH 35.8 H MPV 7.3 L PTT (Actin FS) 23.4 L Sodium Chloride Random Glucose Cholesterol 243 H HDL Cholesterol 131 H Urine Protein Urine Ketones 05/30/20 05/30/20 02:05 03:20 RBC Hgb Hct MCV MCH MPV PTT (Actin FS) Sodium 133 L Chloride 94 L Random Glucose 190 H Cholesterol HDL Cholesterol Urine Protein 3+ H Urine Ketones 1+ H Current Medications Generic Name Dose Route Start Last Admin Trade Name Freq PRN Reason Stop Dose Admin Aspirin 81 mg 05/30/20 10:00 Asa - PO DAILY MARISOL Atorvastatin Calcium 80 mg 05/30/20 22:00 Lipitor - PO HS MARISOL Enoxaparin Sodium 40 mg 05/30/20 10:00 Lovenox - SQ DAILY MARISOL Sodium Chloride 1,000 mls @ 42 mls/hr 05/30/20 04:45 05/30/20 05:14 Normal Saline - IV 42 mls/hr ASDIR MARISOL Administration Insulin Aspart 1 vial 05/30/20 07:00 Novolog Vial Sliding Scale - SQ ACHS [facility] Protocol Lisinopril 20 mg 05/31/20 10:00 Prinivil PO DAILY MARISOL Phenytoin Sodium 100 mg 05/30/20 06:00 Dilantin - PO Q6HPO [facility] ASSESSMENT AND PLAN: 1. Rule out CVA - No acute intracranial abnormality noted on noncontrast head CT. CXR is pending. Will admit to telemetry, get ECHO, TSH, dilantin level, carotid doppler, fasting lipids, brain MRI (metal apurva in leg is MRI compatible), do speech and swallow evaluation, neurochecks and implement fall/aspiration/seizure precautions, continue Aspirin and high dose statin. Consult PT and Neurology. EKG shows NSR at 98/minute and QTc [address]-T wave changes. Initial troponin is negative. Viral testing for COVID-19 ordered and patient placed on airborne, droplet and contact isolation. Hyponatremia likely partly due to hyperglycemia. Will limit free water intake and correct hyperglycemia. Will continue comprehensive care for all of patients comorbid conditions including Dilantin for seizures and statin therapy for hypercholesterolemia. 2. DM For now, we will hold the home diabetes drugs and implement sliding sca le insulin regimen. Provide comprehensive diabetes care with patient teaching and counseling about the importance of adherence to prescribed diabetes regimen, euglycemia, eye care and foot care. 3. Anemia and Macrocytosis- Anemia is likely multifactorial. Macrocytosis may be chiefly due to alcohol effect - on 08/27/2019 his B12 level was 652 pg/mL and Folate was 86 ng/mL - both normal. Will do basic anemia work up including serial stool guaiacs, reticulocyte count and iron studies. 4. Polypharmacy - Will liaise with patient's PCP to discontinue medications that are not absolutely essential. 5. Alcohol abuse - Implement [facility] alcohol withdrawal protocol and do neurochecks. Implement seizure, fall and aspiration precautions. Treat with IV Banana bag, thiamine and folic acid. Monitor and replete electrolytes (Ca,Mg,K,P). Counseled patient about abstaining from alcohol. Will consult order fulfillment specialist and refer to alcohol detox upon discharge. 6. Uncontrolled hypertension Will practice permissive hypertension for 24 to 48 hours. Has chronic proteinuria - likely diabetic nephropathy. Will need to intensify ACEI therapy. Consult Nephrology for further workup. Subsequently, will revise regimen to ensure [id number] excellent BP control. Patient counseled on the injurious effects of uncontrolled hypertension. Nonpharmacologic measures to control hypertension like weight loss, salt restriction and exercise stressed. Importance of adherence to treatment regimen and attainment of normotension emphasized. 7. DVT prophylaxis - Lovenox 40 mg SQ q 24 hours. 8. Advance directives - Full code
[2020-05-30] MEDS ORDERED: SODIUM CHLORIDE 1,000 ML IV SCH (04:45)
[2020-05-30] MEDS ORDERED: ATORVASTATIN CA 80 MG TABLET (FP) PO ONE (04:50)
[2020-05-30] MEDS ORDERED: ATORVASTATIN CA 80 MG TABLET (FP) ONE (05:11)
[2020-05-30] MEDS ORDERED: PHENYTOIN NA EXTENDED 100 MG CAPSULE (FP) PO SCH (06:00)
[2020-05-30] MEDS ORDERED: PHENYTOIN NA EXTENDED 100 MG CAPSULE (FP) ONE ×3 (06:26→19:23)
[2020-05-30] MEDS: PHENYTOIN NA EXTENDED 100 MG CAPSULE (FP) PO SCH ×3 (06:44→19:28)
[2020-05-30] MEDS: INSULIN SLIDING SCALE (NOVOLOG) 1 VIAL SQ SCH ×4 (06:52→22:07)
--- NOTE | 2020-05-30 06:53 | HP ---
CHIEF COMPLAINT: heaviness of left side of body PCP: Dr. Garcia HISTORY OF PRESENT ILLNESS: Pt is a 69 yo M with PMH of CVA (1997; with residual left facial droop; LUE & LLE weakness), HTN, HLD, NIDDM, seizure disorder, chronic alcoholism, and BPH presenting of worsening "heaviness" of L side of the body yesterday morning. The pt spoke to his daughter on the phone in the morning, and she became concerned as he was sounding confused and "mixing words." Pt reports that his LUE and LLE weakness seem to be more or less the same as they previously were, but now he is no longer able to ambulate. He also reports mildly decreased sensation to light touch on most of the left side of his body, including the extremities and his face. The daughter drove from [place] to [place] as she was concerned and called 911 for her father and he was BIBA. He denies syncope, falls, chest pain, SOB, dysphagia, changes in vision, bowel or bladder incontinence, headache, palpitations, dizziness, fever, chills, nausea, or vomiting. ER course was notable for: (1) CT head that was negative (2) Pt was given tylenol; Planned to give lipitor and ASA (3) UA with proteinuria (3+ protein) Recent Travel: none; Sick contacts: none PAST MEDICAL HISTORY: as per HPI PAST SURGICAL HISTORY: orthopedic surgery that resulted in metal apurva in proximal Left LLE - about 20 years ago Family Hx: denies history of CVAs in family Social History: Lives at home alone. Smoking: denies Alcohol: 4 beers per day for last 30 years; 4 beers earlier today Drugs: denies Allergies No Known Allergies Allergy (Verified 05/30/20 01:20) HOME MEDICATIONS: Home Medications Medication Instructions Recorded Acarbose 50 mg PO TID 08/26/19 Albuterol Sulfate Inhaler - 1 - 2 inh PO QID 08/27/19 [Ventolin HFA Inhaler -] Alprazolam [Xanax] 1 mg PO ASDIR 08/27/19 Amlodipine Besylate [Norvasc -] 10 mg PO DAILY 08/27/19 Ascorbate Calcium [Vitamin C] 500 mg PO DAILY 08/27/19 Aspirin [ASA -] 81 mg PO DAILY 08/27/19 Cholecalciferol (Vitamin D3) 5,000 unit PO ASDIR 08/27/19 [Vitamin D3] Cyanocobalamin [Vitamin B12 -] 1,000 mcg PO DAILY 08/27/19 Ferrous Sulfate [Feosol] 325 mg PO BID 08/27/19 Glipizide 5 mg PO BID 08/27/19 Lisinopril 20 mg PO DAILY 08/27/19 Metoprolol Tartrate 50 mg PO BID 08/27/19 Omeprazole Magnesium 40 mg PO DAILY 08/27/19 Paroxetine HCl 20 mg PO DAILY 08/27/19 Zolpidem Tartrate [Ambien] 5 mg PO HS PRN 08/27/19 metFORMIN HCL [Metformin HCl] 500 mg PO BID 08/27/19 Atorvastatin Ca [Lipitor] 40 mg PO HS tablet 08/28/19 Folic Acid - 1 mg PO DAILY tablet 08/28/19 Multivitamins [Multivit ([facility] 1 tab PO DAILY tab 08/28/19 Formulary)] Phenytoin Na Extended [Dilantin -] 100 mg PO Q6HPO capsule 08/28/19 Thiamine HCl [Vitamin B1 -] 100 mg PO ASDIR 30 Days #30 tablet 08/28/19 REVIEW OF SYSTEMS As per HPI. PHYSICAL EXAMINATION Vital Signs - 24 hr 05/30/20 05/30/20 05/30/20 00:50 01:23 02:35 Temperature 98.1 F 98.1 F Pulse Rate 97 H 97 H Pulse Rate [ 103 H Left Apical] Pulse Rate [ Right Radial] Respiratory 16 18 Rate Blood Pressure 157/84 Blood Pressure 157/84 [Right Arm] O2 Sat by Pulse 97 100 100 Oximetry (%) 05/30/20 05:16 Temperature Pulse Rate Pulse Rate [ Left Apical] Pulse Rate [ 84 Right Radial] Respiratory 18 Rate Blood Pressure Blood Pressure 155/86 [Right Arm] O2 Sat by Pulse 98 Oximetry (%) GENERAL: Awake, alert, and fully oriented, in no acute distress. Mildly anxious appearing HEAD: NCAT; mild L sided facial droop observed EYES: PERRLA, EOMI , sclera white, conjunctiva clear. EARS, NOSE, THROAT:oropharynx clear without exudates. Moist mucous membranes. NECK: Normal range of motion, supple without lymphadenopathy. LUNGS: Breath sounds equal, clear to auscultation bilaterally. No wheezes, and no crackles. No accessory muscle use. HEART: Regular rate and rhythm, normal S1 and S2 without murmur, rub or gallop. ABDOMEN: Soft, nontender, not distended, normoactive bowel sounds, no guarding, no rebound, no masses. No hepatomegaly or splenomegaly. MUSCULOSKELETAL: Moving all extremities equally and spontaneously UPPER EXTREMITIES: 2+ pulses, warm, well-perfused. No cyanosis. No peripheral edema. LOWER EXTREMITIES: 2+ pulses, warm, well-perfused. No peripheral edema. NEUROLOGICAL: AOx3. Normal speech. Gait not assessed. 5/5 strength RUE/RLE; 4/5 strength LUE/LLE. Decreased sensation to light tough LLE, LUE, Left side of face except forehead. DTRs intact and equal bilaterally. Cranial nerves II-XII intact (except L facial droop and L facial sensory deficits). PSYCHIATRIC: Cooperative. Good eye contact. Appropriate mood and affect. SKIN: Warm, dry, normal turgor, no rashes or lesions noted. Laboratory Results - last 24 hr 05/30/20 05/30/20 05/30/20 01:12 02:05 02:05 WBC RBC Hgb Hct MCV MCH MCHC RDW Plt Count MPV Absolute Neuts (auto) Neutrophils % Lymphocytes % Monocytes % Eosinophils % Basophils % Nucleated RBC % PT with INR 10.70 INR 0.91 PTT (Actin FS) 23.4 L Sodium Potassium Chloride Carbon Dioxide Anion Gap BUN Creatinine Est GFR (CKD-EPI)AfAm Est GFR (CKD-EPI)NonAf POC Glucometer 182 Random Glucose Calcium Total Bilirubin AST ALT Alkaline Phosphatase Creatine Kinase Troponin I Total Protein Albumin Triglycerides 57 Cholesterol 243 H Total LDL Cholesterol 80 HDL Cholesterol 131 H Urine Color Urine Appearance Urine pH Ur Specific Beaver Urine Protein Urine Glucose (UA) Urine Ketones Urine Blood Urine Nitrite Urine Bilirubin Urine Urobilinogen Ur Leukocyte Esterase Urine WBC (Auto) Urine RBC (Auto) Urine Casts (Auto) U Epithel Cells (Auto) Urine Bacteria (Auto) Blood Type Antibody Screen 05/30/20 05/30/20 05/30/20 02:05 02:05 02:05 WBC 6.5 RBC 2.98 L Hgb 10.7 L Hct 31.1 L MCV 104.5 H MCH 35.8 H MCHC 34.3 RDW 13.2 Plt Count 204 MPV 7.3 L Absolute Neuts (auto) 5.3 Neutrophils % 82.2 D Lymphocytes % 10.1 D Monocytes % 7.0 Eosinophils % 0.4 D Basophils % 0.3 Nucleated RBC % 0 PT with INR INR PTT (Actin FS) Sodium 133 L Potassium 3.9 Chloride 94 L Carbon Dioxide 30 Anion Gap 9 BUN 12.7 Creatinine 0.8 Est GFR (CKD-EPI)AfAm 106.38 Est GFR (CKD-EPI)NonAf 91.79 POC Glucometer Random Glucose 190 H Calcium 9.6 Total Bilirubin 0.4 AST 15 ALT 20 Alkaline Phosphatase 53 Creatine Kinase 92 Troponin I < 0.02 Total Protein 6.8 Albumin 3.8 Triglycerides Cholesterol Total LDL Cholesterol HDL Cholesterol Urine Color Urine Appearance Urine pH Ur Specific Beaver Urine Protein Urine Glucose (UA) Urine Ketones Urine Blood Urine Nitrite Urine Bilirubin Urine Urobilinogen Ur Leukocyte Esterase Urine WBC (Auto) Urine RBC (Auto) Urine Casts (Auto) U Epithel Cells (Auto) Urine Bacteria (Auto) Blood Type O POSITIVE Antibody Screen Negative 05/30/20 03:20 WBC RBC Hgb Hct MCV MCH MCHC RDW Plt Count MPV Absolute Neuts (auto) Neutrophils % Lymphocytes % Monocytes % Eosinophils % Basophils % Nucleated RBC % PT with INR INR PTT (Actin FS) Sodium Potassium Chloride Carbon Dioxide Anion Gap BUN Creatinine Est GFR (CKD-EPI)AfAm Est GFR (CKD-EPI)NonAf POC Glucometer Random Glucose Calcium Total Bilirubin AST ALT Alkaline Phosphatase Creatine Kinase Troponin I Total Protein Albumin Triglycerides Cholesterol Total LDL Cholesterol HDL Cholesterol Urine Color Yellow Urine Appearance Clear Urine pH 8.0 D Ur Specific Beaver 1.012 Urine Protein 3+ H Urine Glucose (UA) Negative Urine Ketones 1+ H Urine Blood Negative Urine Nitrite Negative Urine Bilirubin Negative Urine Urobilinogen 0.2 Ur Leukocyte Esterase Negative Urine WBC (Auto) 4 Urine RBC (Auto) 3 Urine Casts (Auto) 1 U Epithel Cells (Auto) 5 Urine Bacteria (Auto) 11 Blood Type Antibody Screen ASSESSMENT/PLAN: Pt is a 69 yo M with PMH of CVA (1997; with residual left facial droop; LUE & LLE weakness), HTN, HLD, NIDDM, seizure disorder, chronic alcoholism, and BPH being admitted to telemetry for r/o CVA (stroke vs TIA). #Possible CVA (Stroke vs TIA) Questionable change in motor deficits; new L sided sensory deficit CT Head without contrast negative - Can consider repeat CTA brain/neck with contrast - to check for ischemic process - MRI brain (previous MRI brain in 2019 showed diffuse atrophy, ex vacuo ventricular enlargement, diffuse microvascular changes, lacunar infarcts) - Echo/carotid doppler US - Neurochecks q4h - Neuro consult - PT consult - Fall precautions/seizure precautions/aspiration precautions - ASCVD > 26%; therefore start on high dose lipitor 80 nightly - continue with aspirin 81 - check TSH/fasting lipids #Anemia (possibly macrocytic, Hb 10.7; MCV 104.5) Anemia possibly from multifactorial etiology as pt's chronic alcoholism may be causing macrocytosis; previous B12 and folate levels in 2019 were both normal - Iron studies - Reticulocyte counts - Stool for occult blood - Can consider rechecking B12 and folate levels #Mild hyponatremia (likely 2/2 hyperglycemia) - correct sugars - monitor electrolytes; limit free water intake #Proteinuria (UA 3+ protein) Possibly 2/2 long standing DM hx - Nephrology consulted #Seizure Disorder - continue home dilantin 100 q6 - dilantin levels #NIDDM - hold home diabetes medications - BGM + ISS #HTN - med rec for home antihypertensives; hold for now - consider intensifying LEIGH inhibitor with possible diabetic nephropathy #HLD - Lipitor 80 nightly #Chronic Alcoholism (CIWA 0) - monitor for any changes in CIWA - can consider librium if showing signs of withdrawl #DVT PPx - Lovenox 40 sq daily #FEN -F - PO; restricted (recent hypoNa) -E - monitor; replete lytes prn -N - NPO for now; can advance appropriately Dispo: Admit to telemetry Visit type - Medication Review Med list reviewed for High Risk Meds patients 65 and older: Yes - Emergency Visit Emergency Visit: Yes ED Registration Date: 05/30/20 Care time: The patient presented to the Emergency Department on the above date and was hospitalized for further evaluation of their emergent condition. - New Patient This patient is new to me today: Yes Date on this admission: 05/30/20 - Critical Care Critical Care patient: No ATTENDING PHYSICIAN STATEMENT I saw and evaluated the patient. I reviewed the resident's note and discussed the case with the resident. I agree with the resident's findings and plan as documented. SUBJECTIVE: OBJECTIVE: ASSESSMENT AND PLAN:
[2020-05-30 06:57] LABS: BASO % 0.5 % (0-2.0); EOS % 0.9 % (0-4.5); HEMATOCRIT 30.9 % (35.4-49); HEMOGLOBIN 10.6 GM/dL (11.7-16.9); LYMPH % 21.7 % (8-40); MCH 35.7 pg (25.7-33.7); MCHC 34.4 g/dl (32.0-35.9); MEAN CELL VOLUME 103.7 fl (80-96); MEAN PLT VOLUME 6.9 fl (7.5-11.1); MONO % 8.3 % (3.8-10.2); NEUT % 68.6 % (42.8-82.8); PLATELET COUNT 204 K/MM3 (134-434); RBC 2.98 M/mm3 (4.00-5.60); RDW 13.1 % (11.9-15.9); WHITE BLOOD COUNT 6.4 K/mm3 (4.0-10.0)
--- NOTE | 2020-05-30 07:19 | CONSULT ---
Consult Consult Specialty:: Nephrology Reason for Consultation:: proteinuria - History of Present Illness Chief Complaint: weakness, left side History of Present Illness: Pt is a 69 year old male with pmhx of cva, htn, hld, dm, epilepsy, etoh abuse, and bph who presents with numbness on the left side of his body. He says that it began yesterday morning. He did have slurring of words when he talked to his daughter. He was found to have proteinuria and I was called to evaluate him. He denies shortness of breath. He denies dysuria. He denies history of CKD. 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 Cardio/Vascular: Yes: HTN Endocrine: Yes: Diabetes Mellitus - Alcohol/Substance Use Hx Alcohol Use: Yes (He denies daily use of alcohol now) - Smoking History Smoking history: Never smoked Have you smoked in the past 12 months: No Home Medications - Allergies Allergies/Adverse Reactions: Allergies Allergy/AdvReac Type Severity Reaction Status Date / Time No Known Allergies Allergy Verified 05/30/20 01:20 - Home Medications Home Medications: Ambulatory Orders Acarbose 50 mg PO TID 08/26/19 Albuterol Sulfate Inhaler - [Ventolin HFA Inhaler -] 1 - 2 inh PO QID 08/27/19 Alprazolam [Xanax] 1 mg PO ASDIR 08/27/19 Amlodipine Besylate [Norvasc -] 10 mg PO DAILY 08/27/19 Ascorbate Calcium [Vitamin C] 500 mg PO DAILY 08/27/19 Aspirin [ASA -] 81 mg PO DAILY 08/27/19 Cholecalciferol (Vitamin D3) [Vitamin D3] 5,000 unit PO ASDIR 08/27/19 Cyanocobalamin [Vitamin B12 -] 1,000 mcg PO DAILY 08/27/19 Ferrous Sulfate [Feosol] 325 mg PO BID 08/27/19 Glipizide 5 mg PO BID 08/27/19 Lisinopril 20 mg PO DAILY 08/27/19 Metoprolol Tartrate 50 mg PO BID 08/27/19 Omeprazole Magnesium 40 mg PO DAILY 08/27/19 Paroxetine HCl 20 mg PO DAILY 08/27/19 Zolpidem Tartrate [Ambien] 5 mg PO HS PRN 08/27/19 metFORMIN HCL [Metformin HCl] 500 mg PO BID 08/27/19 Atorvastatin Ca [Lipitor] 40 mg PO HS tablet 08/28/19 Folic Acid - 1 mg PO DAILY tablet 08/28/19 Multivitamins [Multivit ([facility] Formulary)] 1 tab PO DAILY tab 08/28/19 Phenytoin Na Extended [Dilantin -] 100 mg PO Q6HPO capsule 08/28/19 Thiamine HCl [Vitamin B1 -] 100 mg PO ASDIR 30 Days #30 tablet 08/28/19 Family Medical History Family History: Denies Review of Systems - Review of Systems Constitutional: reports: Malaise, Weakness Eyes: reports: No Symptoms HENT: reports: No Symptoms Neck: reports: No Symptoms Cardiovascular: reports: No Symptoms Respiratory: reports: No Symptoms Gastrointestinal: reports: No Symptoms Genitourinary: reports: No Symptoms Musculoskeletal: reports: Muscle Weakness Integumentary: reports: No Symptoms Neurological: reports: Numbness, Pre-Existing Deficit Endocrine: reports: No Symptoms Physical Exam Vital Signs: Vital Signs Temperature 98.5 F 05/30/20 06:43 Pulse Rate 91 H 05/30/20 06:43 Respiratory Rate 18 05/30/20 06:43 Blood Pressure 145/72 05/30/20 06:43 O2 Sat by Pulse Oximetry (%) 99 05/30/20 06:43 Constitutional: Yes: Calm Eyes: Yes: Conjunctiva Clear HENT: Yes: Atraumatic Neck: Yes: Supple Cardiovascular: Yes: S1, S2 Respiratory: Yes: CTA Bilaterally Gastrointestinal: Yes: Normal Bowel Sounds, Soft Musculoskeletal: Yes: Other (left side weakness) Edema: No Neurological: Yes: Oriented, Pre-Existing Deficit Imaging - Results Cat Scan: Report Reviewed Problem List - Problems (1) Proteinuria Code(s): R80.9 - PROTEINURIA, UNSPECIFIED (2) Hyponatremia Code(s): E87.1 - HYPO-OSMOLALITY AND HYPONATREMIA Assessment/Plan Current Medications Generic Name Dose Route Start Last Admin Trade Name Freq PRN Reason Stop Dose Admin Aspirin 81 mg 05/30/20 10:00 Asa - PO DAILY [facility] Atorvastatin Calcium 80 mg 05/30/20 22:00 Lipitor - PO HS MARISOL Enoxaparin Sodium 40 mg 05/30/20 10:00 Lovenox - SQ DAILY [facility] Sodium Chloride 1,000 mls @ 42 mls/hr 05/30/20 04:45 05/30/20 05:14 Normal Saline - IV 42 mls/hr ASDIR MARISOL Administration Insulin Aspart 1 vial 05/30/20 07:00 05/30/20 06:52 Novolog Vial Sliding Scale - SQ Not Given ACHS MARISOL Protocol Phenytoin Sodium 100 mg 05/30/20 06:00 05/30/20 06:44 Dilantin - PO 100 mg Q6HPO MARISOL Administration Impression 1. proteinuria 2. hyponatremia 3. r/o cva 4. etoh abuse 5. hld 6. htn 7. 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
[2020-05-30 07:28] LABS: ALBUMIN 3.9 g/dl (3.4-5.0); BILIRUBIN,TOTAL 0.4 mg/dL (0.2-1); BLOOD UREA NITROGEN 12.1 mg/dL (7-18); CALCIUM 9.4 mg/dL (8.5-10.1); CREATININE 0.8 mg/dL (0.55-1.3); POTASSIUM 3.8 mmol/L (3.5-5.1); TOT PROT 6.8 g/dl (6.4-8.2)
--- NOTE | 2020-05-30 09:54 | EKG ---
Test Reason : Blood Pressure : / mmHG Vent. Rate : 098 BPM Atrial Rate : 098 BPM P-R Int : 174 ms QRS Dur : 074 ms QT Int : 346 ms P-R-T Axes : 059 006 026 degrees QTc Int : 441 ms NORMAL SINUS RHYTHM NORMAL ECG WHEN COMPARED WITH ECG OF 10-JUN-2018 19:34, NO SIGNIFICANT CHANGE WAS FOUND Confirmed by Yoseph Cabrera ([id number]) on 05/30/2020 9:53:47 AM Referred By: Confirmed By:Yoseph Cabrera
[2020-05-30] MEDS ORDERED: ASPIRIN 81 MG CHEWABLE TABLETS PO SCH (10:00)
[2020-05-30] MEDS ORDERED: LISINOPRIL 20 MG TABLET (FP) PO SCH (10:00)
--- NOTE | 2020-05-30 10:24 | CONSULT ---
Admitting History and Physical - Admission History of Present Illness: Per EMR- Pt is a 69 yo M with PMH of CVA (1997; with residual left facial droop; LUE & LLE weakness), HTN, HLD, NIDDM, seizure disorder, chronic alcoholism, and BPH being admitted to telemetry for r/o CVA (stroke vs TIA). #Possible CVA (Stroke vs TIA) Questionable change in motor deficits; new L sided sensory deficit CT Head without contrast negative previous MRI brain in 2019 showed diffuse atrophy, ex vacuo ventricular enlargement, diffuse microvascular changes, lacunar infarcts Laboratory Tests 05/30/20 05:15 COVID-19 ([facility]) Pending Selected Entries 05/30/20 05/30/20 05/30/20 00:50 01:23 02:35 Temperature 98.1 F 98.1 F Pulse Rate 97 H 97 H Pulse Rate [ 103 H Left Apical] Pulse Rate [ Left Radial] Pulse Rate [ Right Radial] 05/30/20 05/30/20 05/30/20 05:16 06:43 09:22 Temperature 98.5 F Pulse Rate Pulse Rate [ Left Apical] Pulse Rate [ 91 H 91 H Left Radial] Pulse Rate [ 84 Right Radial] Laboratory Tests 05/30/20 02:05 WBC 6.5 Passed Dysphagia screen. NPO Seen last by me Jul 2019-Impression: Mild left facial with incomplete bilabial closure on left with diificulty impounding air. (Chronic?). Speech,language, swallowing intact. 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
--- NOTE | 2020-05-30 10:55 | ECHO ---
Name: PETTY SHAFFER JOSE Exam:Adult Echocardiogram Study Date: 05/30/2020 07:57 AM Age: 69 yrs Reason For Study: LV Function Height: 65 in Weight: 160 lb BSA: 1.8 m2 MMode/2D Measurements & Calculations IVSd: 1.1 cm Ao root diam: 3.1 cm LVIDd: 4.6 cm LA dimension: 3.2 cm LVIDs: 3.2 cm LVPWd: 0.98 cm EDV(Teich): 96.8 ml LVOT diam: 2.0 cm ESV(Teich): 41.4 ml LAV (MOD-bp): 66.8 ml Doppler Measurements & Calculations MV E max malachi: 50.9 cm/sec Ao V2 max: 146.6 cm/sec MV A max malachi: 69.5 cm/sec Ao max P.6 mmHg MV E/A: 0.73 MV dec time: 0.11 sec CECILIA(V,D): 2.2 cm2 LV V1 max P.0 mmHg MR max malachi: 384.4 cm/sec LV V1 max: 99.5 cm/sec MR max P.1 mmHg TR max malachi: 253.8 cm/sec PA V2 max: 101.8 cm/sec TR max P.9 mmHg PA max P.1 mmHg Med Peak E' Malachi: 5.3 cm/sec PI Vmax: 131.7 cm/sec Med E/e': 9.5 Lat Peak E' Malachi: 9.6 cm/sec Lat E/e': 5.3 Procedure Study Quality: Fair. Left Ventricle The left ventricle is normal in size. There is mild concentric left ventricular hypertrophy. The left ventricular ejection fraction is normal. Ejection Fraction = 60-65%. The transmitral spectral Doppler flow pattern is suggestive of impaired LV relaxation. Right Ventricle The right ventricle is normal in size and function. Atria The left atrium is mildly dilated. Right atrial size is normal. Mitral Valve The mitral valve is grossly normal. There is no mitral regurgitation noted. Tricuspid Valve The tricuspid valve is not well visualized, but is grossly normal. There is mild tricuspid regurgitat ion. Right ventricular systolic pressure is normal. Aortic Valve The aortic valve is normal in structure and function. Pulmonic Valve The pulmonic valve is not well seen, but is grossly normal. Trace pulmonic valvular regurgitation. Great Vessels The aortic root is normal size. Proxymal normal size,distal not well seen. Pericardium/Pleura There is no pericardial effusion. Interpretation Summary LV: Normal size, borderline LVH, normal systolic function, EF 60-65%, impaired relaxation RV; Normal LA; Mildly dilated Mild TR with normal RVSP. Yoseph Cabrera 05/30/2020 10:54 AM
[2020-05-30] MEDS: ENOXAPARIN NA (PORCINE) 40 MG/0.4 ML DISP.SYRIN SQ SCH (11:00)
[2020-05-30] MEDS ORDERED: ENOXAPARIN NA (PORCINE) 40 MG/0.4 ML DISP.SYRIN SQ ONE (11:31)
[2020-05-30] MEDS ORDERED: ASPIRIN 81 MG CHEWABLE TABLETS ONE (11:31)
--- NOTE | 2020-05-30 13:01 | PN ---
Teaching Attending Note Name of Resident: Antonio Rizo ATTENDING PHYSICIAN STATEMENT I saw and evaluated the patient. I reviewed the resident's note and discussed the case with the resident. I agree with the resident's findings and plan as documented. SUBJECTIVE: Complains of full body pain and weakness impairing ambulation. No headache/visual disturbance. Longstanding residual L sided weakness. Denies head injury or LOC. Difficult to ascertain details surrounding presenting symptoms. OBJECTIVE: Afebrile, Hemodynamically Stable. Last Vital Signs Temp Pulse Resp BP Pulse Ox 98.5 F 91 H 18 156/86 99 05/30/20 06:43 05/30/20 09:22 05/30/20 09:22 05/30/20 09:22 05/30/20 09:22 HEENT - Atraumatic. Heart - S1, S2, RRR Lungs - clear to auscultation Abdomen - Soft, non-tender. Bowel Sounds normal. Extremities - no edema, no calf tenderness. Neuro - AAO x 3. Mild L facial Droop. Mild reduction in Power LUE and LLE 4/5 (Chronic) Laboratory Results - last 24 hr 05/30/20 05/30/20 05/30/20 01:12 02:05 02:05 WBC RBC Hgb Hct MCV MCH MCHC RDW Plt Count MPV Absolute Neuts (auto) Neutrophils % Lymphocytes % Monocytes % Eosinophils % Basophils % Nucleated RBC % Retic Count PT with INR 10.70 INR 0.91 PTT (Actin FS) 23.4 L Sodium Potassium Chloride Carbon Dioxide Anion Gap BUN Creatinine Est GFR (CKD-EPI)AfAm Est GFR (CKD-EPI)NonAf POC Glucometer 182 Random Glucose Calcium Iron TIBC Iron Saturation Unsaturated IBC Ferritin Total Bilirubin AST ALT Alkaline Phosphatase Creatine Kinase Troponin I Total Protein Albumin Triglycerides 57 Cholesterol 243 H Total LDL Cholesterol 80 HDL Cholesterol 131 H Vitamin B12 Serum Folate TSH Urine Color Urine Appearance Urine pH Ur Specific [place] Urine Protein Urine Glucose (UA) Urine Ketones Urine Blood Urine Nitrite Urine Bilirubin Urine Urobilinogen Ur Leukocyte Esterase Urine WBC (Auto) Urine RBC (Auto) Urine Casts (Auto) U Epithel Cells (Auto) Urine Bacteria (Auto) Phenytoin Alcohol, Quantitative Blood Type Antibody Screen 05/30/20 05/30/20 05/30/20 02:05 02:05 02:05 WBC 6.5 RBC 2.98 L Hgb 10.7 L Hct 31.1 L MCV 104.5 H MCH 35.8 H MCHC 34.3 RDW 13.2 Plt Count 204 MPV 7.3 L Absolute Neuts (auto) 5.3 Neutrophils % 82.2 D Lymphocytes % 10.1 D Monocytes % 7.0 Eosinophils % 0.4 D Basophils % 0.3 Nucleated RBC % 0 Retic Count PT with INR INR PTT (Actin FS) Sodium 133 L Potassium 3.9 Chloride 94 L Carbon Dioxide 30 Anion Gap 9 BUN 12.7 Creatinine 0.8 Est GFR (CKD-EPI)AfAm 106.38 Est GFR (CKD-EPI)NonAf 91.79 POC Glucometer Random Glucose 190 H Calcium 9.6 Iron TIBC Iron Saturation Unsaturated IBC Ferritin Total Bilirubin 0.4 AST 15 ALT 20 Alkaline Phosphatase 53 Creatine Kinase 92 Troponin I < 0.02 Total Protein 6.8 Albumin 3.8 Triglycerides Cholesterol Total LDL Cholesterol HDL Cholesterol Vitamin B12 Serum Folate TSH Urine Color Urine Appearance Urine pH Ur Specific [place] Urine Protein Urine Glucose (UA) Urine Ketones Urine Blood Urine Nitrite Urine Bilirubin Urine Urobilinogen Ur Leukocyte Esterase Urine WBC (Auto) Urine RBC (Auto) Urine Casts (Auto) U Epithel Cells (Auto) Urine Bacteria (Auto) Phenytoin Alcohol, Quantitative Blood Type O POSITIVE Antibody Screen Negative 05/30/20 05/30/20 05/30/20 03:20 06:30 06:30 WBC 6.4 RBC 2.98 L Hgb 10.6 L Hct 30.9 L MCV 103.7 H MCH 35.7 H MCHC 34.4 RDW 13.1 Plt Count 204 MPV 6.9 L Absolute Neuts (auto) 4.4 Neutrophils % 68.6 Lymphocytes % 21.7 D Monocytes % 8.3 Eosinophils % 0.9 D Basophils % 0.5 Nucleated RBC % 0 Retic Count PT with INR INR PTT (Actin FS) Sodium 135 L Potassium 3.8 Chloride 96 L Carbon Dioxide 29 Anion Gap 10 BUN 12.1 Creatinine 0.8 Est GFR (CKD-EPI)AfAm 106.38 Est GFR (CKD-EPI)NonAf 91.79 POC Glucometer Random Glucose 145 H Calcium 9.4 Iron 130 TIBC 217 L Iron Saturation 59 H Unsaturated IBC 87 L Ferritin Total Bilirubin 0.4 AST 14 L ALT 19 Alkaline Phosphatase 50 Creatine Kinase Troponin I Total Protein 6.8 Albumin 3.9 Triglycerides Cholesterol Total LDL Cholesterol HDL Cholesterol Vitamin B12 Serum Folate TSH Urine Color Yellow Urine Appearance Clear Urine pH 8.0 D Ur Specific [place] 1.012 Urine Protein 3+ H Urine Glucose (UA) Negative Urine Ketones 1+ H Urine Blood Negative Urine Nitrite Negative Urine Bilirubin Negative Urine Urobilinogen 0.2 Ur Leukocyte Esterase Negative Urine WBC (Auto) 4 Urine RBC (Auto) 3 Urine Casts (Auto) 1 U Epithel Cells (Auto) 5 Urine Bacteria (Auto) 11 Phenytoin Alcohol, Quantitative Blood Type Antibody Screen 05/30/20 05/30/20 05/30/20 06:30 06:30 06:30 WBC RBC Hgb Hct MCV MCH MCHC RDW Plt Count MPV Absolute Neuts (auto) Neutrophils % Lymphocytes % Monocytes % Eosinophils % Basophils % Nucleated RBC % Retic Count PT with INR INR PTT (Actin FS) Sodium Potassium Chloride Carbon Dioxide Anion Gap BUN Creatinine Est GFR (CKD-EPI)AfAm Est GFR (CKD-EPI)NonAf POC Glucometer Random Glucose Calcium Iron TIBC Iron Saturation Unsaturated IBC Ferritin 114.5 Total Bilirubin AST ALT Alkaline Phosphatase Creatine Kinase 86 Troponin I < 0.02 Total Protein Albumin Triglycerides Cholesterol Total LDL Cholesterol HDL Cholesterol Vitamin B12 555 Serum Folate 24 H TSH 1.32 D Urine Color Urine Appearance Urine pH Ur Specific [place] Urine Protein Urine Glucose (UA) Urine Ketones Urine Blood Urine Nitrite Urine Bilirubin Urine Urobilinogen Ur Leukocyte Esterase Urine WBC (Auto) Urine RBC (Auto) Urine Casts (Auto) U Epithel Cells (Auto) Urine Bacteria (Auto) Phenytoin 11.9 Alcohol, Quantitative < 3 Blood Type Antibody Screen 05/30/20 06:39 WBC RBC Hgb Hct MCV MCH MCHC RDW Plt Count MPV Absolute Neuts (auto) Neutrophils % Lymphocytes % Monocytes % Eosinophils % Basophils % Nucleated RBC % Retic Count PT with INR INR PTT (Actin FS) Sodium Potassium Chloride Carbon Dioxide Anion Gap BUN Creatinine Est GFR (CKD-EPI)AfAm Est GFR (CKD-EPI)NonAf POC Glucometer 132 Random Glucose Calcium Iron TIBC Iron Saturation Unsaturated IBC Ferritin Total Bilirubin AST ALT Alkaline Phosphatase Creatine Kinase Troponin I Total Protein Albumin Triglycerides Cholesterol Total LDL Cholesterol HDL Cholesterol Vitamin B12 Serum Folate TSH Urine Color Urine Appearance Urine pH Ur Specific [place] Urine Protein Urine Glucose (UA) Urine Ketones Urine Blood Urine Nitrite Urine Bilirubin Urine Urobilinogen Ur Leukocyte Esterase Urine WBC (Auto) Urine RBC (Auto) Urine Casts (Auto) U Epithel Cells (Auto) Urine Bacteria (Auto) Phenytoin Alcohol, Quantitative Blood Type Antibody Screen Current Medications Generic Name Dose Route Start Last Admin Trade Name Prakash PRN Reason Stop Dose Admin Aspirin 81 mg 05/30/20 10:00 05/30/20 11:00 Asa - PO 81 mg DAILY MARISOL Administration Atorvastatin Calcium 80 mg 05/30/20 22:00 Lipitor - PO HS MARISOL Enoxaparin Sodium 40 mg 05/30/20 10:00 05/30/20 11:00 Lovenox - SQ 40 mg DAILY MARISOL Administration Insulin Aspart 1 vial 05/30/20 07:00 05/30/20 06:52 Novolog Vial Sliding Scale - SQ Not Given ACHS [facility] Protocol Phenytoin Sodium 100 mg 05/30/20 06:00 05/30/20 06:44 Dilantin - PO 100 mg Q6HPO MARISOL Administration ASSESSMENT AND PLAN: 69 year old male with history of current Alcohol Use Disorder, prior CVA (1997, 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 CT Head - no acute findings. 1. Acute/Subacute CVA No clear new neurological deficits. CT Head - no acute findings. MRI - focal acute/subacute infarct paramedial aspect of the m.oblongata, generalized atrophy Echo - impaired LV relaxation, normal EF Carotid Duplex - no hemodynamically significant stenosis ECG -no acute changes TSH wnl. Telemonitoring Statin changed from Simvastatin 20mg to Lipitor 40mg Aspirin changed to Plavix. Neuro eval pending. PT/ST. 2. Macrocytic Anemia, likely sec to Alcohol excess MCV 104.5 Iron/B12/Folate levels not deficient. On B12 and Iron supplementation at home. 3. Seizure Disorder - Continue Phenytoin. No clear evidence of seizure activity prompting presentation. Neurology consulted. 4. DM 2 - Metformin/Glipizide held. Maintain on Novolog sliding scale. Proteinuria - on LEIGH-I. 5. HTN - Allow for permissive hypertension. Can resume home antihypertensives in 24-48 hrs: Lisinopril, Norvasc (once medications reconciled/confirmed) 6. HLD - Statin transitioned from Simvastatin 20mg to Lipitor 40mg 7. Alcohol Use Disorder Reports having 4-5 beers/day No evidence of alcohol withdrawal - will monitor. MVI, Thiamine, Folate 8. Depression/Anxiety - reportedly on Paroxetine and Xanax - will resume once medications confirmed. 9. Hyponatremia, likely sec to Alcohol excess, resolving. Nephrology consulted. DVT Px - Lovenox SQ
[2020-05-30] MEDS ORDERED: THIAMINE HCL 100 MG TABLET (FP) ONE (14:48)
[2020-05-30] MEDS ORDERED: MULTIVITAMINS (DAILY MVI) TABLET (FP) ONE (14:48)
[2020-05-30] MEDS ORDERED: FOLIC ACID 1 MG TABLET (FP) ONE (14:49)
[2020-05-30] MEDS: FOLIC ACID 1 MG TABLET (FP) PO SCH (16:01)
[2020-05-30] MEDS: MULTIVITAMINS (DAILY MVI) TABLET (FP) PO SCH (16:02)
[2020-05-30] MEDS: THIAMINE HCL 100 MG TABLET (FP) PO SCH (16:02)
[2020-05-30] MEDS ORDERED: CLOPIDOGREL BISULFATE 75 MG TABLET (FP) ONE (19:23)
[2020-05-30] MEDS: CLOPIDOGREL BISULFATE 75 MG TABLET (FP) PO SCH (19:28)
[2020-05-30] MEDS ORDERED: ATORVASTATIN CA 80 MG TABLET (FP) PO SCH (22:00)
[2020-05-30] MEDS ORDERED: ATORVASTATIN CA 40 MG TABLET (FP) PO SCH (22:00)
[2020-05-30] MEDS ORDERED: ZOLPIDEM TARTRATE 5 MG TABLET PO PRN (22:00)
[2020-05-30] MEDS: OMEGA-3 ACID ETHYL ESTERS (FATTY-ACIDS) 1 GM CAPSULE (FP) PO SCH (22:07)
--- NOTE | 2020-05-30 22:17 | PN ---
Physical Exam: SUBJECTIVE: No overniight events Patient seen and examined. COmplains of numbness, tingling, and decreased sensation on L side. OBJECTIVE: Vital Signs Period Temp Pulse Resp BP Sys/Anderson Pulse Ox Last 24 Hr 97.9 F-98.5 F 84-103 16-18 145-173/72-90 97-100 GENERAL: The patient is awake, alert, and fully oriented, in no acute distress. HEENT Normal with no signs of trauma. EYES: PERRL, extraocular movements intact, sclera anicteric, conjunctiva clear. No ptosis. ENT: Ears normal, nares patent, oropharynx clear without exudates, moist mucous membranes. L facial droop, decreased sensation L face, unable to raise eyebrows on L side face. unable to smile LUNGS: Breath sounds equal, clear to auscultation bilaterally, no wheezes, no crackles, no accessory muscle use. HEART: Regular rate and rhythm, S1, S2 without murmur, rub or gallop. ABDOMEN: Soft, nontender, nondistended, normoactive bowel sounds, EXTREMITIES: warm, well-perfused, no edema. NEUROLOGICAL: Cranial nerves II through XII grossly intact. Normal speech, gait not observed. Strength 5/5 R UE & LE. Strength 4/5 L UE & LE. consistent with past CVA findings. Sensation intact, but diminshed on L side. PSYCH: Normal mood, normal affect. Laboratory Results - last 24 hr 05/30/20 05/30/20 05/30/20 01:12 02:05 02:05 WBC RBC Hgb Hct MCV MCH MCHC RDW Plt Count MPV Absolute Neuts (auto) Neutrophils % Lymphocytes % Monocytes % Eosinophils % Basophils % Nucleated RBC % Retic Count PT with INR 10.70 INR 0.91 PTT (Actin FS) 23.4 L Sodium Potassium Chloride Carbon Dioxide Anion Gap BUN Creatinine Est GFR (CKD-EPI)AfAm Est GFR (CKD-EPI)NonAf POC Glucometer 182 Random Glucose Calcium Iron TIBC Iron Saturation Unsaturated IBC Ferritin Total Bilirubin AST ALT Alkaline Phosphatase Creatine Kinase Troponin I Total Protein Albumin Triglycerides 57 Cholesterol 243 H Total LDL Cholesterol 80 HDL Cholesterol 131 H Vitamin B12 Serum Folate TSH Urine Color Urine Appearance Urine pH Ur Specific [place] Urine Protein Urine Glucose (UA) Urine Ketones Urine Blood Urine Nitrite Urine Bilirubin Urine Urobilinogen Ur Leukocyte Esterase Urine WBC (Auto) Urine RBC (Auto) Urine Casts (Auto) U Epithel Cells (Auto) Urine Bacteria (Auto) Phenytoin Alcohol, Quantitative Blood Type Antibody Screen 05/30/20 05/30/20 05/30/20 02:05 02:05 02:05 WBC 6.5 RBC 2.98 L Hgb 10.7 L Hct 31.1 L MCV 104.5 H MCH 35.8 H MCHC 34.3 RDW 13.2 Plt Count 204 MPV 7.3 L Absolute Neuts (auto) 5.3 Neutrophils % 82.2 D Lymphocytes % 10.1 D Monocytes % 7.0 Eosinophils % 0.4 D Basophils % 0.3 Nucleated RBC % 0 Retic Count PT with INR INR PTT (Actin FS) Sodium 133 L Potassium 3.9 Chloride 94 L Carbon Dioxide 30 Anion Gap 9 BUN 12.7 Creatinine 0.8 Est GFR (CKD-EPI)AfAm 106.38 Est GFR (CKD-EPI)NonAf 91.79 POC Glucometer Random Glucose 190 H Calcium 9.6 Iron TIBC Iron Saturation Unsaturated IBC Ferritin Total Bilirubin 0.4 AST 15 ALT 20 Alkaline Phosphatase 53 Creatine Kinase 92 Troponin I < 0.02 Total Protein 6.8 Albumin 3.8 Triglycerides Cholesterol Total LDL Cholesterol HDL Cholesterol Vitamin B12 Serum Folate TSH Urine Color Urine Appearance Urine pH Ur Specific [place] Urine Protein Urine Glucose (UA) Urine Ketones Urine Blood Urine Nitrite Urine Bilirubin Urine Urobilinogen Ur Leukocyte Esterase Urine WBC (Auto) Urine RBC (Auto) Urine Casts (Auto) U Epithel Cells (Auto) Urine Bacteria (Auto) Phenytoin Alcohol, Quantitative Blood Type O POSITIVE Antibody Screen Negative 05/30/20 05/30/20 05/30/20 03:20 06:30 06:30 WBC 6.4 RBC 2.98 L Hgb 10.6 L Hct 30.9 L MCV 103.7 H MCH 35.7 H MCHC 34.4 RDW 13.1 Plt Count 204 MPV 6.9 L Absolute Neuts (auto) 4.4 Neutrophils % 68.6 Lymphocytes % 21.7 D Monocytes % 8.3 Eosinophils % 0.9 D Basophils % 0.5 Nucleated RBC % 0 Retic Count PT with INR INR PTT (Actin FS) Sodium 135 L Potassium 3.8 Chloride 96 L Carbon Dioxide 29 Anion Gap 10 BUN 12.1 Creatinine 0.8 Est GFR (CKD-EPI)AfAm 106.38 Est GFR (CKD-EPI)NonAf 91.79 POC Glucometer Random Glucose 145 H Calcium 9.4 Iron 130 TIBC 217 L Iron Saturation 59 H Unsaturated IBC 87 L Ferritin Total Bilirubin 0.4 AST 14 L ALT 19 Alkaline Phosphatase 50 Creatine Kinase Troponin I Total Protein 6.8 Albumin 3.9 Triglycerides Cholesterol Total LDL Cholesterol HDL Cholesterol Vitamin B12 Serum Folate TSH Urine Color Yellow Urine Appearance Clear Urine pH 8.0 D Ur Specific [place] 1.012 Urine Protein 3+ H Urine Glucose (UA) Negative Urine Ketones 1+ H Urine Blood Negative Urine Nitrite Negative Urine Bilirubin Negative Urine Urobilinogen 0.2 Ur Leukocyte Esterase Negative Urine WBC (Auto) 4 Urine RBC (Auto) 3 Urine Casts (Auto) 1 U Epithel Cells (Auto) 5 Urine Bacteria (Auto) 11 Phenytoin Alcohol, Quantitative Blood Type Antibody Screen 05/30/20 05/30/20 05/30/20 06:30 06:30 06:30 WBC RBC Hgb Hct MCV MCH MCHC RDW Plt Count MPV Absolute Neuts (auto) Neutrophils % Lymphocytes % Monocytes % Eosinophils % Basophils % Nucleated RBC % Retic Count PT with INR INR PTT (Actin FS) Sodium Potassium Chloride Carbon Dioxide Anion Gap BUN Creatinine Est GFR (CKD-EPI)AfAm Est GFR (CKD-EPI)NonAf POC Glucometer Random Glucose Calcium Iron TIBC Iron Saturation Unsaturated IBC Ferritin 114.5 Total Bilirubin AST ALT Alkaline Phosphatase Creatine Kinase 86 Troponin I < 0.02 Total Protein Albumin Triglycerides Cholesterol Total LDL Cholesterol HDL Cholesterol Vitamin B12 555 Serum Folate 24 H TSH 1.32 D Urine Color Urine Appearance Urine pH Ur Specific [place] Urine Protein Urine Glucose (UA) Urine Ketones Urine Blood Urine Nitrite Urine Bilirubin Urine Urobilinogen Ur Leukocyte Esterase Urine WBC (Auto) Urine RBC (Auto) Urine Casts (Auto) U Epithel Cells (Auto) Urine Bacteria (Auto) Phenytoin 11.9 Alcohol, Quantitative < 3 Blood Type Antibody Screen 05/30/20 05/30/20 05/30/20 06:39 09:35 13:11 WBC RBC Hgb Hct MCV MCH MCHC RDW Plt Count MPV Absolute Neuts (auto) Neutrophils % Lymphocytes % Monocytes % Eosinophils % Basophils % Nucleated RBC % Retic Count 1.38 PT with INR INR PTT (Actin FS) Sodium Potassium Chloride Carbon Dioxide Anion Gap BUN Creatinine Est GFR (CKD-EPI)AfAm Est GFR (CKD-EPI)NonAf POC Glucometer 132 134 Random Glucose Calcium Iron TIBC Iron Saturation Unsaturated IBC Ferritin Total Bilirubin AST ALT Alkaline Phosphatase Creatine Kinase Troponin I Total Protein Albumin Triglycerides Cholesterol Total LDL Cholesterol HDL Cholesterol Vitamin B12 Serum Folate TSH Urine Color Urine Appearance Urine pH Ur Specific [place] Urine Protein Urine Glucose (UA) Urine Ketones Urine Blood Urine Nitrite Urine Bilirubin Urine Urobilinogen Ur Leukocyte Esterase Urine WBC (Auto) Urine RBC (Auto) Urine Casts (Auto) U Epithel Cells (Auto) Urine Bacteria (Auto) Phenytoin Alcohol, Quantitative Blood Type Antibody Screen 05/30/20 05/30/20 18:12 21:41 WBC RBC Hgb Hct MCV MCH MCHC RDW Plt Count MPV Absolute Neuts (auto) Neutrophils % Lymphocytes % Monocytes % Eosinophils % Basophils % Nucleated RBC % Retic Count PT with INR INR PTT (Actin FS) Sodium Potassium Chloride Carbon Dioxide Anion Gap BUN Creatinine Est GFR (CKD-EPI)AfAm Est GFR (CKD-EPI)NonAf POC Glucometer 227 90 Random Glucose Calcium Iron TIBC Iron Saturation Unsaturated IBC Ferritin Total Bilirubin AST ALT Alkaline Phosphatase Creatine Kinase Troponin I Total Protein Albumin Triglycerides Cholesterol Total LDL Cholesterol HDL Cholesterol Vitamin B12 Serum Folate TSH Urine Color Urine Appearance Urine pH Ur Specific [place] Urine Protein Urine Glucose (UA) Urine Ketones Urine Blood Urine Nitrite Urine Bilirubin Urine Urobilinogen Ur Leukocyte Esterase Urine WBC (Auto) Urine RBC (Auto) Urine Casts (Auto) U Epithel Cells (Auto) Urine Bacteria (Auto) Phenytoin Alcohol, Quantitative Blood Type Antibody Screen Active Medications Generic Name Dose Route Start Last Admin Trade Name Freq PRN Reason Stop Dose Admin Alprazolam 1 mg 05/31/20 10:00 Xanax PO DAILY MARISOL Atorvastatin Calcium 40 mg 05/30/20 22:00 05/30/20 22:07 Lipitor - PO 40 mg HS MARISOL Administration Clopidogrel Bisulfate 75 mg 05/30/20 17:45 05/30/20 19:28 Plavix - PO 75 mg DAILY MARISOL Administration Enoxaparin Sodium 40 mg 05/30/20 10:00 05/30/20 11:00 Lovenox - SQ 40 mg DAILY MARISOL Administration Folic Acid 1 mg 05/30/20 14:00 05/30/20 16:01 Folic Acid - PO 1 mg DAILY MARISOL Administration Insulin Aspart 1 vial 05/30/20 07:00 05/30/20 22:07 Novolog Vial Sliding Scale - SQ Not Given ACHS [facility] Protocol Multivitamins/Minerals/Vitamin C 1 tab 05/30/20 14:00 05/30/20 16:02 Tab-A-Vit - PO 1 tab DAILY MARISOL Administration [id number] Ethyl Esters 1 gm 05/30/20 22:00 05/30/20 22:07 Lovaza - PO 1 gm BID MARISOL Administration Paroxetine HCl 20 mg 05/31/20 10:00 Paxil - PO DAILY MARISOL Phenytoin Sodium 100 mg 05/30/20 18:30 05/30/20 19:28 Dilantin - PO 100 mg Q6HPO MARISOL Administration Thiamine HCl 100 mg 05/30/20 14:00 05/30/20 16:02 Vitamin B1 - PO 100 mg DAILY MARISOL Administration Zolpidem Tartrate 5 mg 05/30/20 22:00 Ambien - PO HS PRN INSOMNIA ASSESSMENT/PLAN: 69 YO M HTN, HLD, DM, seizures, BPH, alcohol use disorder, & CVA in 1997 w/ L facial droop/L extremity weakness) p/w increased weakness of L UE/LE & decreased sensation & increased numbness/tingling of L side of his body. Was noted to be confused in the AM by his daughter. #Acute/Subacute CVA -CTH: no acute pathology -MRI: focal acute/subacute infarct of the paramedian aspect of the medulla oblongata -Echo: LV nml, borderline LVH. nml systolic function. EF 60-65%. impaired relaxation. LA midly dilated, mild TR -Carotid duplex: minimal atherosclerotic disease, no evidence of hemodynamically signficiant stenosis -c/w Telemonitoring -changed from home dose of Simvastatin 20mg to atorvastatin 40mg -changed from ASA to 75 mg PO daily -neuro & PT consulted #Macrocytic Anemia, likely sec to Alcohol excess -H/H on admission: 10.7/31.1 MCV 104.5 -DECREASED TIBC (217), Unsaturated IBC (87) INCREASED: Iron sat (59) -NORMAL: iron 130, ferritin 114.5 -Folate 24, B12 555. (Pt was given banana bag with folate in it on admission) -c/w folate and thiamine #Seizure Disorder -c/w home dose Phenytoin. #DM -ISS -BGM #HTN -permissive hypertension 2/2 CVA. resume BP meds in 24 hrs #HLD -changed from home dose of Simvastatin 20mg to atorvastatin 40mg #Alcohol Use Disorder -CIWA 0; no alcohol withdrawal symptoms -c/w multivitamin, folate, thiamine #Anxiety & Depression -c/w home dose paroxetine & xanax #DVT Ppx lovenox SQ #FEN no IVF monitor lytes cholestrol, fat, sodium restricted diet #Dispo maintain med surg Visit type - Emergency Visit Emergency Visit: Yes ED Registration Date: 05/30/20 Care time: The patient presented to the Emergency Department on the above date and was hospitalized for further evaluation of their emergent condition. - New Patient This patient is new to me today: No - Critical Care Critical Care patient: No - Medication Review Med list reviewed for High Risk Meds patients 65 and older: Yes ATTENDING PHYSICIAN STATEMENT I saw and evaluated the patient. I reviewed the resident's note and discussed the case with the resident. I agree with the resident's findings and plan as documented. SUBJECTIVE: OBJECTIVE: ASSESSMENT AND PLAN:
[2020-05-31] MEDS: PHENYTOIN NA EXTENDED 100 MG CAPSULE (FP) PO SCH ×4 (00:52→17:06)
[2020-05-31 01:26] VITALS: BMI 25.4
[2020-05-31] MEDS: INSULIN SLIDING SCALE (NOVOLOG) 1 VIAL SQ SCH ×4 (06:38→21:11)
[2020-05-31 06:53] LABS: BASO % 0.9 % (0-2.0); EOS % 2.1 % (0-4.5); HEMATOCRIT 30.4 % (35.4-49); HEMOGLOBIN 10.4 GM/dL (11.7-16.9); LYMPH % 31.1 % (8-40); MCH 35.4 pg (25.7-33.7); MCHC 34.1 g/dl (32.0-35.9); MEAN CELL VOLUME 103.8 fl (80-96); MEAN PLT VOLUME 7.2 fl (7.5-11.1); MONO % 9.4 % (3.8-10.2); NEUT % 56.5 % (42.8-82.8); PLATELET COUNT 202 K/MM3 (134-434); RBC 2.93 M/mm3 (4.00-5.60); RDW 13.1 % (11.9-15.9); WHITE BLOOD COUNT 4.8 K/mm3 (4.0-10.0)
[2020-05-31 07:08] LABS: BLOOD UREA NITROGEN 11.4 mg/dL (7-18); CALCIUM 9.2 mg/dL (8.5-10.1); CREATININE 0.8 mg/dL (0.55-1.3); MAGNESIUM 1.7 mg/dL (1.8-2.4); PHOSPHOROUS 3.8 mg/dL (2.5-4.9); POTASSIUM 3.4 mmol/L (3.5-5.1)
[2020-05-31] MEDS ORDERED: POTASSIUM CHLORIDE ORAL LIQUID 20 MEQ/15 ML PO ONE (07:16)
[2020-05-31] MEDS ORDERED: MAGNESIUM OXIDE 400 MG TABLET (FP) PO ONE (07:16)
[2020-05-31] MEDS ORDERED: LISINOPRIL 20 MG TABLET (FP) PO SCH ×2 (10:00)
[2020-05-31] MEDS: ENOXAPARIN NA (PORCINE) 40 MG/0.4 ML DISP.SYRIN SQ SCH (10:02)
[2020-05-31] MEDS: OMEGA-3 ACID ETHYL ESTERS (FATTY-ACIDS) 1 GM CAPSULE (FP) PO SCH ×2 (10:02→21:10)
[2020-05-31] MEDS: PARoxetine HCL 20 MG TABLET PO SCH (10:02)
[2020-05-31] MEDS: MULTIVITAMINS (DAILY MVI) TABLET (FP) PO SCH (10:02)
[2020-05-31] MEDS: FOLIC ACID 1 MG TABLET (FP) PO SCH (10:02)
[2020-05-31] MEDS: THIAMINE HCL 100 MG TABLET (FP) PO SCH (10:02)
[2020-05-31] MEDS: CLOPIDOGREL BISULFATE 75 MG TABLET (FP) PO SCH (10:02)
[2020-05-31] MEDS: ALPRAZolam 1 MG TABLET PO SCH (10:06)
--- NOTE | 2020-05-31 11:00 | PN ---
Progress Note, Physician History of Present Illness: Pt seen and examined at bedside. He is awake and alert. HE does not feel that the weakness is improved. - Current Medication List Current Medications: Active Medications Alprazolam (Xanax) 1 mg PO DAILY [facility] Last Admin: 05/31/20 10:06 Dose: 1 mg Documented by: Atorvastatin Calcium (Lipitor -) 40 mg PO HS [facility] Last Admin: 05/30/20 22:07 Dose: 40 mg Documented by: Clopidogrel Bisulfate (Plavix -) 75 mg PO DAILY [facility] Last Admin: 05/31/20 10:02 Dose: 75 mg Documented by: Enoxaparin Sodium (Lovenox -) 40 mg SQ DAILY [facility] Last Admin: 05/31/20 10:02 Dose: 40 mg Documented by: Folic Acid (Folic Acid -) 1 mg PO DAILY [facility] Last Admin: 05/31/20 10:02 Dose: 1 mg Documented by: Insulin Aspart (Novolog Vial Sliding Scale -) 1 vial SQ [facility]; Protocol Last Admin: 05/31/20 06:38 Dose: Not Given Documented by: Multivitamins/Minerals/Vitamin C (Tab-A-Vit -) 1 tab PO DAILY [facility] Last Admin: 05/31/20 10:02 Dose: 1 tab Documented by: [id number]-[id number] Ethyl Esters (Lovaza -) 1 gm PO BID [facility] Last Admin: 05/31/20 10:02 Dose: 1 gm Documented by: Paroxetine HCl (Paxil -) 20 mg PO DAILY [facility] Last Admin: 05/31/20 10:02 Dose: 20 mg Documented by: Phenytoin Sodium (Dilantin -) 100 mg PO Q6HPO [facility] Last Admin: 05/31/20 06:39 Dose: 100 mg Documented by: Thiamine HCl (Vitamin B1 -) 100 mg PO DAILY [facility] Last Admin: 05/31/20 10:02 Dose: 100 mg Documented by: Zolpidem Tartrate (Ambien -) 5 mg PO HS PRN PRN Reason: INSOMNIA - Objective Vital Signs: Vital Signs Temperature 97.8 F 05/31/20 06:00 Pulse Rate 80 05/31/20 06:00 Respiratory Rate 20 05/31/20 06:00 Blood Pressure 144/83 05/31/20 06:00 O2 Sat by Pulse Oximetry (%) 98 05/31/20 06:00 Constitutional: Yes: Calm Eyes: Yes: Conjunctiva Clear HENT: Yes: Atraumatic Neck: Yes: Supple Cardiovascular: Yes: S1, S2 Respiratory: Yes: CTA Bilaterally Gastrointestinal: Yes: Soft Genitourinary: Yes: WNL Musculoskeletal: Yes: Muscle Weakness Edema: No Neurological: Yes: Oriented Psychiatric: Yes: Oriented Labs: CBC, BMP 05/31/20 06:05 05/31/20 06:05 INR, PTT INR 0.91 (0.83-1.09) 05/30/20 02:05 Problem List - Problems (1) Proteinuria Code(s): R80.9 - PROTEINURIA, UNSPECIFIED (2) Hyponatremia Code(s): E87.1 - HYPO-OSMOLALITY AND HYPONATREMIA Assessment/Plan Current Medications Generic Name Dose Route Start Last Admin Trade Name Freq PRN Reason Stop Dose Admin Alprazolam 1 mg 05/31/20 10:00 05/31/20 10:06 Xanax PO 1 mg DAILY [facility] Administration Atorvastatin Calcium 40 mg 05/30/20 22:00 05/30/20 22:07 Lipitor - PO 40 mg HS [facility] Administration Clopidogrel Bisulfate 75 mg 05/30/20 17:45 05/31/20 10:02 Plavix - PO 75 mg DAILY [facility] Administration Enoxaparin Sodium 40 mg 05/30/20 10:00 05/31/20 10:02 Lovenox - SQ 40 mg DAILY [facility] Administration Folic Acid 1 mg 05/30/20 14:00 05/31/20 10:02 Folic Acid - PO 1 mg DAILY [facility] Administration Insulin Aspart 1 vial 05/30/20 07:00 05/31/20 06:38 Novolog Vial Sliding Scale - SQ Not Given ACHS [facility] Protocol Multivitamins/Minerals/Vitamin C 1 tab 05/30/20 14:00 05/31/20 10:02 Tab-A-Vit - PO 1 tab DAILY [facility] Administration Qkuwf-5-Fopy Ethyl Esters 1 gm 05/30/20 22:00 05/31/20 10:02 Lovaza - PO 1 gm BID [facility] Administration Paroxetine HCl 20 mg 05/31/20 10:00 05/31/20 10:02 Paxil - PO 20 mg DAILY [facility] Administration Phenytoin Sodium 100 mg 05/30/20 18:30 05/31/20 06:39 Dilantin - PO 100 mg Q6HPO [facility] Administration Thiamine HCl 100 mg 05/30/20 14:00 05/31/20 10:02 Vitamin B1 - PO 100 mg DAILY [facility] Administration Zolpidem Tartrate 5 mg 05/30/20 22:00 Ambien - PO HS PRN INSOMNIA Laboratory Tests 05/30/20 05/30/20 05/30/20 02:05 03:17 03:20 Sodium 133 L Urine Protein 3+ H Protein/Creatinin Ratio 5.0 Phenytoin Alcohol, Quantitative COVID-19 ([facility]) 05/30/20 05/30/20 05/30/20 05:15 06:30 06:30 Sodium 135 L Urine Protein Protein/Creatinin Ratio Phenytoin Alcohol, Quantitative < 3 COVID-19 ([facility]) Pending 05/30/20 06:30 Sodium Urine Protein Protein/Creatinin Ratio Phenytoin 11.9 Alcohol, Quantitative COVID-19 ([facility]) Impression 1. proteinuria 2. hyponatremia 3. r/o cva 4. etoh abuse 5. hld 6. htn 7. hld 8. cva Plan - will need proteinuria workup - will start abdelrahman once more stable, avoid hypotension - neuro follow up - mri shows infarct - replace lytes - monitor sodium - glucose control
--- NOTE | 2020-05-31 11:59 | PN ---
Progress Note, INSPECTOR [facility]IALS - Note Progress Note: Laboratory Tests 05/30/20 05:15 COVID-19 ([facility]) Not detected Reg diet/thin liquids ordered. Doing well. No further f/u indicated.
--- NOTE | 2020-05-31 15:00 | PN ---
Teaching Attending Note Name of Resident: Antonio Rizo ATTENDING PHYSICIAN STATEMENT I saw and evaluated the patient. I reviewed the resident's note and discussed the case with the resident. I agree with the resident's findings and plan as documented. SUBJECTIVE: Seen and examained at bedside. No complaints. Pending neurology evaluation. 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 MRI - focal acute/subacute infarct paramedial aspect of the m.oblongata, generalized atrophy Echo - impaired LV relaxation, normal EF Carotid Duplex - no hemodynamically significant stenosis ECG -no acute changes TSH wnl. Telemonitoring Statin increased to liptor 80 Aspirin changed to Plavix. Neuro eval pending. PT/ST. # Macrocytic Anemia, likely sec to Alcohol excess MCV 104.5 Iron/B12/Folate levels not deficient. On B12 and Iron supplementation at home. # Seizure Disorder - Continue Phenytoin. No clear evidence of seizure activity prompting presentation. # DM 2 - Metformin/Glipizide held. Maintain on Novolog sliding scale. Proteinuria - on LEIGH-I. # HTN - Allow for permissive hypertension. Can resume home antihypertensives in 24-48 hrs: Lisinopril, Norvasc (once medications reconciled/confirmed) # HLD - Statin transitioned from Simvastatin 20mg to Lipitor 40mg # Alcohol Use Disorder Reports having 4-5 beers/day No evidence of alcohol withdrawal - will monitor. MVI, Thiamine, Folate # Depression/Anxiety - reportedly on Paroxetine and Xanax - will resume once medications confirmed. # Hyponatremia, likely sec to Alcohol excess, resolving. Nephrology consulted. DVT Px - Lovenox SQ
--- NOTE | 2020-05-31 17:02 | CONSULT ---
Consult - text type - Consultation Consultation Note: NEUROLOGY CONSULTATION is greatly appreciated: Events reviewed and discussed with automotive internet sales consultant. This 69 yo RH man with h/o HTN, Chol, Chronic alcoholism and "seizures" is s/p CVA (1997) with residual left sided weakness. 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 Maintained on: Acarbose; Albuterol; Alprazolam; Amlodipine; ASA 81; Vitamin B12 1,000; Feosol; Glipizide; Lisinopril; Metoprolol; Omeprazole; Paroxetine; Zolpidem; metFORMIN; Atorvastatin; Folic Acid; Multivitamins; Phenytoin 100 mg PO Q6H; and Thiamine HCl [Vitamin B1 -] 100 mg. Seen by me 08/27/19 with increase in chronic left sided weakness. Was apparently intoxicated at the time of that admission. MRI on 08/27/19 showed diffuse atrophy and microvascular changes as well as an old right medullary infarct AT THAT TIME. Now admitted after his daughter noted slurred speech on the telephone. MRI (reviewed): Diffuse atrophy and microvascular changes. NB: Dr. Osman does NOT note that he has compared this study to the prior MRI of 08/27/20, only the admission CT scan. Carotid duplex and MRAngio: Scattered atheromatous changes, hypoplastic right vertebral. No significant stenoses. MCV= 104. DPH level= 11.9 ug% JAVY: No bruits. No head trauma. BP 140/90 NEURO: Sl dysarthric but fluent in Croatian. 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 Full corcoran and EOM's without nystagmus. Reduced tongue LUIZ's. Decreased gag but swallows H2O Motor: Min Right drift. Decreased LUIZ's B/L. Min cogwheling, B/L. Brisk reflexes except AJ's. Toes downgoing Coord: No FTN dystaxia. Sensory: Decreased vibration right foot. Gait: Wide-based. Left circumduction. Unsteady. IMP: Chronic B/L cerebral dysfunction with B/L motor signs c/w old microvascular strokes. 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 Give parenteral thiamine 250 mg IVPB q 8 hrs x 3 days Check B12 levels Give Dilantin 300 mg PO QHS (no need to give QID or 400 mg) PT for gait with walker Observe for signs of ETOH withdrawal. Thank you very much, Landry Jacques MD
--- NOTE | 2020-05-31 17:54 | PN ---
Physical Exam: SUBJECTIVE: No overnight events. Patient seen and examined. Endorses numbness, tingling, and decreased sensation on L side improved. OBJECTIVE: Vital Signs Period Temp Pulse Resp BP Sys/Anderson Pulse Ox Last 24 Hr 97.7 F-98.4 F 79-94 17-20 140-173/83-90 97-99 GENERAL: The patient is awake, alert, and fully oriented, in no acute distress. HEENT Normal with no signs of trauma. EYES: PERRL, extraocular movements intact, sclera anicteric, conjunctiva clear. No ptosis. ENT: Ears normal, nares patent, oropharynx clear without exudates, moist mucous membranes. L facial droop, decreased sensation L face, unable to raise eyebrows on L side face. unable to smile LUNGS: Breath sounds equal, clear to auscultation bilaterally, no wheezes, no crackles, no accessory muscle use. HEART: Regular rate and rhythm, S1, S2 without murmur, rub or gallop. ABDOMEN: Soft, nontender, nondistended, normoactive bowel sounds, EXTREMITIES: warm, well-perfused, no edema. NEUROLOGICAL: Cranial nerves II through XII grossly intact. Normal speech, gait not observed. Strength 5/5 R UE & LE. Strength 4/5 L UE & LE. consistent with past CVA findings. Sensation intact, but diminshed on L side. PSYCH: Normal mood, normal affect. Laboratory Results - last 24 hr 05/30/20 05/30/20 05/30/20 03:17 05:15 18:12 WBC RBC Hgb Hct MCV MCH MCHC RDW Plt Count MPV Absolute Neuts (auto) Neutrophils % Lymphocytes % Monocytes % Eosinophils % Basophils % Nucleated RBC % Sodium Potassium Chloride Carbon Dioxide Anion Gap BUN Creatinine Est GFR (CKD-EPI)AfAm Est GFR (CKD-EPI)NonAf POC Glucometer 227 Random Glucose Hemoglobin A1c % Calcium Phosphorus Magnesium Ur Random Creatinine 38.0 U Random Total Protein 189.9 H Protein/Creatinin Ratio 5.0 COVID-19 ([facility]) Not detected 05/30/20 05/31/20 05/31/20 21:41 05:26 06:05 WBC 4.8 RBC 2.93 L Hgb 10.4 L Hct 30.4 L MCV 103.8 H MCH 35.4 H MCHC 34.1 RDW 13.1 Plt Count 202 MPV 7.2 L Absolute Neuts (auto) 2.7 Neutrophils % 56.5 Lymphocytes % 31.1 D Monocytes % 9.4 Eosinophils % 2.1 D Basophils % 0.9 Nucleated RBC % 0 Sodium Potassium Chloride Carbon Dioxide Anion Gap BUN Creatinine Est GFR (CKD-EPI)AfAm Est GFR (CKD-EPI)NonAf POC Glucometer 90 120 Random Glucose Hemoglobin A1c % Calcium Phosphorus Magnesium Ur Random Creatinine U Random Total Protein Protein/Creatinin Ratio COVID-19 ([facility]) 05/31/20 05/31/20 05/31/20 06:05 06:05 16:33 WBC RBC Hgb Hct MCV MCH MCHC RDW Plt Count MPV Absolute Neuts (auto) Neutrophils % Lymphocytes % Monocytes % Eosinophils % Basophils % Nucleated RBC % Sodium 138 Potassium 3.4 L Chloride 100 Carbon Dioxide 26 Anion Gap 12 BUN 11.4 Creatinine 0.8 Est GFR (CKD-EPI)AfAm 106.38 Est GFR (CKD-EPI)NonAf 91.79 POC Glucometer 233 Random Glucose 124 H Hemoglobin A1c % 6.8 H Calcium 9.2 Phosphorus 3.8 Magnesium 1.7 L Ur Random Creatinine U Random Total Protein Protein/Creatinin Ratio COVID-19 ([facility]) Active Medications Generic Name Dose Route Start Last Admin Trade Name Freq PRN Reason Stop Dose Admin Alprazolam 1 mg 05/31/20 10:00 05/31/20 10:06 Xanax PO 1 mg DAILY [facility] Administration Aspirin 81 mg 06/01/20 10:00 Asa - PO DAILY [facility] Atorvastatin Calcium 80 mg 05/31/20 22:00 Lipitor - PO HS [facility] Clopidogrel Bisulfate 75 mg 05/30/20 17:45 05/31/20 10:02 Plavix - PO 75 mg DAILY [facility] Administration Enoxaparin Sodium 40 mg 05/30/20 10:00 05/31/20 10:02 Lovenox - SQ 40 mg DAILY [facility] Administration Folic Acid 1 mg 05/30/20 14:00 05/31/20 10:02 Folic Acid - PO 1 mg DAILY [facility] Administration Insulin Aspart 1 vial 05/30/20 07:00 05/31/20 16:43 Novolog Vial Sliding Scale - SQ 4 units ACHS [facility] Administration Protocol Multivitamins/Minerals/Vitamin C 1 tab 05/30/20 14:00 05/31/20 10:02 Tab-A-Vit - PO 1 tab DAILY [facility] Administration Lejec-3-Rruu Ethyl Esters 1 gm 05/30/20 22:00 05/31/20 10:02 Lovaza - PO 1 gm BID [facility] Administration Paroxetine HCl 20 mg 05/31/20 10:00 05/31/20 10:02 Paxil - PO 20 mg DAILY [facility] Administration Phenytoin Sodium 100 mg 05/30/20 18:30 05/31/20 17:06 Dilantin - PO 100 mg Q6HPO [facility] Administration Thiamine HCl 100 mg 05/30/20 14:00 05/31/20 10:02 Vitamin B1 - PO 100 mg DAILY [facility] Administration Thiamine HCl 200 mg 05/31/20 17:30 Vitamin B1 Injection - IVPB 06/03/20 17:30 Q8H [facility] Zolpidem Tartrate 5 mg 05/30/20 22:00 Ambien - PO HS PRN INSOMNIA ASSESSMENT/PLAN: 69 YO M HTN, HLD, DM, seizures, BPH, alcohol use disorder, & CVA in 1997 w/ L facial droop/L extremity weakness) p/w increased weakness of L UE/LE & decreased sensation & increased numbness/tingling of L side of his body. Was noted to be confused in the AM by his daughter. #Acute/Subacute CVA -CTH: no acute pathology -MRI: focal acute/subacute infarct of the paramedian aspect of the medulla oblongata -Echo: LV nml, borderline LVH. nml systolic function. EF 60-65%. impaired relaxation. LA mildly dilated, mild TR -Carotid duplex: minimal atherosclerotic disease, no evidence of hemodynamically signficiant stenosis -c/w Telemonitoring -changed atorvastatin 40mg to atorvastatin 80 mg -neuro c/s appreciated. start DAPT (ASA 81 mg & clopidogrel 75 mg). -PT walked 60 ft with walker #Macrocytic Anemia, likely sec to Alcohol excess -H/H on admission: 10.7/31.1 MCV 104.5 -DECREASED TIBC (217), Unsaturated IBC (87) INCREASED: Iron sat (59) -NORMAL: iron 130, ferritin 114.5 -Folate 24, B12 555. (Pt was given banana bag with folate in it on admission) -c/w folate. Start thiamine 250 mg IVPB q 8 hrs x 3 days. #Seizure Disorder -START Phenytoin 300 mg PO HS #DM -ISS -BGM #HTN -restart amlodipine 10 mg PO daily #HLD -changed from home dose of Simvastatin 20mg to atorvastatin 40mg #Alcohol Use Disorder -CIWA 0; no alcohol withdrawal symptoms -c/w multivitamin, folate -Start thiamine 250 mg IVPB q 8 hrs x 3 days. #seizures c/w phenytoin (Dilantin) 300 mg PO QHS #Anxiety & Depression -c/w home dose paroxetine & xanax #DVT Ppx lovenox SQ #FEN no IVF monitor lytes cholestrol, fat, sodium restricted diet #Dispo maintain med surg Visit type - Emergency Visit Emergency Visit: Yes ED Registration Date: 05/30/20 Care time: The patient presented to the Emergency Department on the above date and was hospitalized for further evaluation of their emergent condition. - New Patient This patient is new to me today: No - Critical Care Critical Care patient: No - Medication Review Med list reviewed for High Risk Meds patients 65 and older: Yes ATTENDING PHYSICIAN STATEMENT I saw and evaluated the patient. I reviewed the resident's note and discussed the case with the resident. I agree with the resident's findings and plan as documented. SUBJECTIVE: OBJECTIVE: ASSESSMENT AND PLAN:
[2020-05-31] MEDS: THIAMINE HCL 200 MG/2 ML VIAL IVPB SCH (18:04)
[2020-05-31] MEDS: amLODIPine BESYLATE 10 MG TABLET (FP) PO SCH (18:04)
[2020-05-31] MEDS ORDERED: PHENYTOIN NA EXTENDED 100 MG CAPSULE (FP) PO SCH (22:00)
[2020-05-31] MEDS ORDERED: ATORVASTATIN CA 40 MG TABLET (FP) PO SCH (22:00)
[2020-06-01] MEDS: THIAMINE HCL 200 MG/2 ML VIAL IVPB SCH ×2 (01:20→10:40)
[2020-06-01] MEDS: INSULIN SLIDING SCALE (NOVOLOG) 1 VIAL SQ SCH ×3 (06:50→17:00)
[2020-06-01 07:55] LABS: BASO % 0.8 % (0-2.0); EOS % 2.5 % (0-4.5); HEMATOCRIT 32.6 % (35.4-49); HEMOGLOBIN 11.1 GM/dL (11.7-16.9); LYMPH % 30.5 % (8-40); MCH 35.3 pg (25.7-33.7); MCHC 34.1 g/dl (32.0-35.9); MEAN CELL VOLUME 103.7 fl (80-96); MEAN PLT VOLUME 7.3 fl (7.5-11.1); MONO % 9.7 % (3.8-10.2); NEUT % 56.5 % (42.8-82.8); PLATELET COUNT 212 K/MM3 (134-434); RBC 3.14 M/mm3 (4.00-5.60); WHITE BLOOD COUNT 5.3 K/mm3 (4.0-10.0)
[2020-06-01 08:35] LABS: ALBUMIN 3.8 g/dl (3.4-5.0); BILIRUBIN,TOTAL 0.4 mg/dL (0.2-1); BLOOD UREA NITROGEN 12.7 mg/dL (7-18); CALCIUM 9.2 mg/dL (8.5-10.1); CREATININE 0.8 mg/dL (0.55-1.3); MAGNESIUM 1.8 mg/dL (1.8-2.4); PHOSPHOROUS 4.2 mg/dL (2.5-4.9); POTASSIUM 3.8 mmol/L (3.5-5.1); TOT PROT 6.7 g/dl (6.4-8.2)
[2020-06-01] MEDS: FOLIC ACID 1 MG TABLET (FP) PO SCH (09:30)
[2020-06-01] MEDS: OMEGA-3 ACID ETHYL ESTERS (FATTY-ACIDS) 1 GM CAPSULE (FP) PO SCH (09:30)
[2020-06-01] MEDS: amLODIPine BESYLATE 10 MG TABLET (FP) PO SCH (09:31)
[2020-06-01] MEDS: ENOXAPARIN NA (PORCINE) 40 MG/0.4 ML DISP.SYRIN SQ SCH (09:31)
[2020-06-01] MEDS: CLOPIDOGREL BISULFATE 75 MG TABLET (FP) PO SCH (09:31)
[2020-06-01] MEDS: ALPRAZolam 1 MG TABLET PO SCH (09:32)
[2020-06-01] MEDS: PARoxetine HCL 20 MG TABLET PO SCH (09:32)
[2020-06-01] MEDS: MULTIVITAMINS (DAILY MVI) TABLET (FP) PO SCH (09:32)
[2020-06-01] MEDS ORDERED: ASPIRIN 81 MG CHEWABLE TABLETS PO SCH (10:00)
[2020-06-01] MEDS: THIAMINE HCL 100 MG TABLET (FP) PO SCH (10:41)
--- NOTE | 2020-06-01 12:54 | PN ---
Progress Note, Physician History of Present Illness: Pt seen and examined at bedside. He is awake and appears comfortable. He denies shortness of breath. - Current Medication List Current Medications: Active Medications Alprazolam (Xanax) 1 mg PO DAILY [facility] Last Admin: 06/01/20 09:32 Dose: 1 mg Documented by: Amlodipine Besylate (Norvasc -) 10 mg PO DAILY [facility] Last Admin: 06/01/20 09:31 Dose: 10 mg Documented by: Aspirin (Asa -) 81 mg PO DAILY [facility] Last Admin: 06/01/20 09:30 Dose: 81 mg Documented by: Atorvastatin Calcium (Lipitor -) 80 mg PO [facility] Last Admin: 05/31/20 21:10 Dose: 80 mg Documented by: Clopidogrel Bisulfate (Plavix -) 75 mg PO DAILY [facility] Last Admin: 06/01/20 09:31 Dose: 75 mg Documented by: Enoxaparin Sodium (Lovenox -) 40 mg SQ DAILY [facility] Last Admin: 06/01/20 09:31 Dose: 40 mg Documented by: Folic Acid (Folic Acid -) 1 mg PO DAILY [facility] Last Admin: 06/01/20 09:30 Dose: 1 mg Documented by: Insulin Aspart (Novolog Vial Sliding Scale -) 1 vial SQ [facility]; Protocol Last Admin: 06/01/20 12:05 Dose: 10 units Documented by: Multivitamins/Minerals/Vitamin C (Tab-A-Vit -) 1 tab PO DAILY [facility] Last Admin: 06/01/20 09:32 Dose: 1 tab Documented by: Eyvia-7-Hdmi Ethyl Esters (Lovaza -) 1 gm PO BID [facility] Last Admin: 06/01/20 09:30 Dose: 1 gm Documented by: Paroxetine HCl (Paxil -) 20 mg PO DAILY [facility] Last Admin: 06/01/20 09:32 Dose: 20 mg Documented by: Phenytoin Sodium (Dilantin -) 300 mg PO [facility] Last Admin: 05/31/20 21:09 Dose: 300 mg Documented by: Thiamine HCl (Vitamin B1 -) 100 mg PO DAILY [facility] Last Admin: 06/01/20 10:41 Dose: Not Given Documented by: Thiamine HCl (Vitamin B1 Injection -) 200 mg IVPB Q8H [facility] Stop: 06/03/20 17:30 Last Admin: 06/01/20 10:40 Dose: 200 mg Documented by: Zolpidem Tartrate (Ambien -) 5 mg PO HS PRN PRN Reason: INSOMNIA - Objective Vital Signs: Vital Signs Temperature 97.7 F 06/01/20 09:10 Pulse Rate 73 06/01/20 09:10 Respiratory Rate 20 06/01/20 09:10 Blood Pressure 118/73 06/01/20 09:10 O2 Sat by Pulse Oximetry (%) 97 06/01/20 09:10 Constitutional: Yes: Calm Eyes: Yes: Conjunctiva Clear HENT: Yes: Atraumatic Neck: Yes: Supple Cardiovascular: Yes: S1, S2 Respiratory: Yes: CTA Bilaterally Gastrointestinal: Yes: Normal Bowel Sounds, Soft Genitourinary: Yes: WNL Musculoskeletal: Yes: Muscle Weakness Edema: No Neurological: Yes: Oriented, Pre-Existing Deficit Labs: CBC, BMP 06/01/20 05:37 06/01/20 05:37 INR, PTT INR 0.91 (0.83-1.09) 05/30/20 02:05 Problem List - Problems (1) Proteinuria Code(s): R80.9 - PROTEINURIA, UNSPECIFIED (2) Hyponatremia Code(s): E87.1 - HYPO-OSMOLALITY AND HYPONATREMIA Assessment/Plan Current Medications Generic Name Dose Route Start Last Admin Trade Name Freq PRN Reason Stop Dose Admin Alprazolam 1 mg 05/31/20 10:00 06/01/20 09:32 Xanax PO 1 mg DAILY [facility] Administration Amlodipine Besylate 10 mg 05/31/20 18:00 06/01/20 09:31 Norvasc - PO 10 mg DAILY [facility] Administration Aspirin 81 mg 06/01/20 10:00 06/01/20 09:30 Asa - PO 81 mg DAILY [facility] Administration Atorvastatin Calcium 80 mg 05/31/20 22:00 05/31/20 21:10 Lipitor - PO 80 mg HS [facility] Administration Clopidogrel Bisulfate 75 mg 05/30/20 17:45 06/01/20 09:31 Plavix - PO 75 mg DAILY [facility] Administration Enoxaparin Sodium 40 mg 05/30/20 10:00 06/01/20 09:31 Lovenox - SQ 40 mg DAILY [facility] Administration Folic Acid 1 mg 05/30/20 14:00 06/01/20 09:30 Folic Acid - PO 1 mg DAILY [facility] Administration Insulin Aspart 1 vial 05/30/20 07:00 06/01/20 12:05 Novolog Vial Sliding Scale - SQ 10 units ACHS [facility] Administration Protocol Multivitamins/Minerals/Vitamin C 1 tab 05/30/20 14:00 06/01/20 09:32 Tab-A-Vit - PO 1 tab DAILY [facility] Administration [id number] Ethyl Esters 1 gm 05/30/20 22:00 06/01/20 09:30 Lovaza - PO 1 gm BID [facility] Administration Paroxetine HCl 20 mg 05/31/20 10:00 06/01/20 09:32 Paxil - PO 20 mg DAILY [facility] Administration Phenytoin Sodium 300 mg 05/31/20 22:00 05/31/20 21:09 Dilantin - PO 300 mg HS [facility] Administration Thiamine HCl 100 mg 05/30/20 14:00 06/01/20 10:41 Vitamin B1 - PO Not Given DAILY [facility] Thiamine HCl 200 mg 05/31/20 17:30 06/01/20 10:40 Vitamin B1 Injection - IVPB 06/03/20 17:30 200 mg Q8H [facility] Administration Zolpidem Tartrate 5 mg 05/30/20 22:00 Ambien - PO HS PRN INSOMNIA Selected Entries 05/31/20 05/31/20 06/01/20 18:00 21:17 02:00 Blood Pressure 146/97 144/79 129/74 06/01/20 06/01/20 06:00 09:10 Blood Pressure 134/86 118/73 Impression 1. proteinuria 2. hyponatremia 3. r/o cva 4. etoh abuse 5. hld 6. htn 7. hld 8. cva Plan - neuro input appreciated - can add low dose abdelrahman and monitor - can decrease amlodipine to 5 mg for tomorrow and monitor bp - will need proteinuria workup - monitor sodium - glucose control
[2020-06-01] MEDS ORDERED: amLODIPine BESYLATE 10 MG TABLET (FP) PO SCH (12:55)
[2020-06-01 13:40] VITALS: BP 146/78; PULSE 61; TEMP 98.2
--- NOTE | 2020-06-01 14:38 | PN ---
Teaching Attending Note Name of Resident: Antonio Rizo ATTENDING PHYSICIAN STATEMENT I saw and evaluated the patient. I reviewed the resident's note and discussed the case with the resident. I agree with the resident's findings and plan as documented. SUBJECTIVE: Seen and examained at bedside. Patient reports feeling much better. Is alert and oriented x3 and states he feels at his physical baseline. Patient walked 200 steps today with physical therapy. Will discharge on his home medications with clopidogrel switched for aspirin and atorvastatin 40 instead of simvastatin 20. 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 Review of past imaging showed that the patient did not have a new CVA. Patient symptoms have resolved and he has now back to his mental and physical baseline. He is medically cleared for discharge. His medications will be optimized as above.
--- NOTE | 2020-06-01 18:23 | DS ---
Physical Exam: SUBJECTIVE: No overnight events. Patient seen and examined. Endorses numbness, tingling, and decreased sensation on L side improved. OBJECTIVE: Vital Signs Period Temp Pulse Resp BP Sys/Anderson Pulse Ox Last 24 Hr 97.5 F-98.2 F 61-86 18-20 118-146/73-86 95-99 PHYSICAL EXAM GENERAL: The patient is awake, alert, and fully oriented, in no acute distress. HEENT Normal with no signs of trauma. EYES: PERRL, extraocular movements intact, sclera anicteric, conjunctiva clear. No ptosis. ENT: Ears normal, nares patent, oropharynx clear without exudates, moist mucous membranes. L facial droop, decreased sensation L face, unable to raise eyebrows on L side face. unable to smile LUNGS: Breath sounds equal, clear to auscultation bilaterally, no wheezes, no crackles, no accessory muscle use. HEART: Regular rate and rhythm, S1, S2 without murmur, rub or gallop. ABDOMEN: Soft, nontender, nondistended, normoactive bowel sounds, EXTREMITIES: warm, well-perfused, no edema. NEUROLOGICAL: Cranial nerves II through XII grossly intact. Normal speech, gait not observed. Strength 5/5 R UE & LE. Strength 4/5 L UE & LE. consistent with past CVA findings. Sensation intact, but diminshed on L side. PSYCH: Normal mood, normal affect. LABS Laboratory Results - last 24 hr 05/31/20 05/31/20 06/01/20 18:15 21:07 05:37 WBC 5.3 RBC 3.14 L Hgb 11.1 L Hct 32.6 L MCV 103.7 H MCH 35.3 H MCHC 34.1 RDW 13.0 Plt Count 212 MPV 7.3 L Absolute Neuts (auto) 3.0 Neutrophils % 56.5 Lymphocytes % 30.5 Monocytes % 9.7 Eosinophils % 2.5 Basophils % 0.8 Nucleated RBC % 0 Sodium Potassium Chloride Carbon Dioxide Anion Gap BUN Creatinine Est GFR (CKD-EPI)AfAm Est GFR (CKD-EPI)NonAf POC Glucometer 258 Random Glucose Calcium Phosphorus Magnesium Total Bilirubin AST ALT Alkaline Phosphatase Total Protein Albumin Vitamin B12 551 06/01/20 06/01/20 06/01/20 05:37 06:26 11:13 WBC RBC Hgb Hct MCV MCH MCHC RDW Plt Count MPV Absolute Neuts (auto) Neutrophils % Lymphocytes % Monocytes % Eosinophils % Basophils % Nucleated RBC % Sodium 137 Potassium 3.8 Chloride 102 Carbon Dioxide 25 Anion Gap 10 BUN 12.7 Creatinine 0.8 Est GFR (CKD-EPI)AfAm 106.38 Est GFR (CKD-EPI)NonAf 91.79 POC Glucometer 167 394 Random Glucose 152 H Calcium 9.2 Phosphorus 4.2 Magnesium 1.8 Total Bilirubin 0.4 AST 14 L ALT 20 Alkaline Phosphatase 48 Total Protein 6.7 Albumin 3.8 Vitamin B12 06/01/20 16:38 WBC RBC Hgb Hct MCV MCH MCHC RDW Plt Count MPV Absolute Neuts (auto) Neutrophils % Lymphocytes % Monocytes % Eosinophils % Basophils % Nucleated RBC % Sodium Potassium Chloride Carbon Dioxide Anion Gap BUN Creatinine Est GFR (CKD-EPI)AfAm Est GFR (CKD-EPI)NonAf POC Glucometer 113 Random Glucose Calcium Phosphorus Magnesium Total Bilirubin AST ALT Alkaline Phosphatase Total Protein Albumin Vitamin B12 HOSPITAL COURSE: 69 YO M HTN, HLD, DM, seizures, BPH, alcohol use disorder, & CVA in 1997 w/ L facial droop/L extremity weakness) p/w increased weakness of L UE/LE & decreased sensation & increased numbness/tingling of L side of his body. Was noted to be confused in the AM by his daughter. CTH: no acute pathology, but -MRI: focal acute/subacute infarct of the paramedian aspect of the medulla oblongata. Echo: LV nml, borderline LVH. nml systolic function. EF 60-65%. impaired relaxation. LA mildly dilated, mild TR. Carotid duplex: minimal atherosclerotic disease, no evidence of hemodynamically signficiant stenosis. Started on Atorvastatin 80 mg. Managed with DAPT (ASA 81 mg & clopidogrel 75 mg). Found to have Macrocytic Anemia, likely sec to Alcohol excess. Pt was given folate and thiamine. Pt is stable for discharge. Date of Admission:05/30/20 Date of Discharge: 06/01/20 Minutes to complete discharge: 45 Discharge Summary Problems reviewed: Yes Reason For Visit: CEROBROVASCULAR ACCIDENT (CVA) Current Active Problems Hyponatremia (Acute) Proteinuria (Acute) Condition: Stable - Instructions Diet, Activity, Other Instructions: You came into the hospital with increased weakness, decreased sensation, and increased numbness/tingling on the Left side of your body. Imaging of your brain showed a chronic stroke. You were given blood thinners. Echocardiogram of your heart showed a normal heart size with normal functioning. Imaging of your blood vessels in your neck did not show evidence of significant abnormalities. You were evaluated by a neurologist who recommended changes in your seizure medications, and your stroke prevention medications. Imaging showed no signs of acute stroke. You also improved with physical therapy. You were found to be anemic on your labwork. Please follow-up with your primary care physician for further evaluation of your anemia. Your symptoms improved. You are stable for discharge. MEDICATIONS Please STOP taking aspirin. Please STOP taking simvastatin. Please CHANGE how you take Dilantain --please START taking Dilantin 300mg every night(instead of taking 100mg every 6hours) Please START taking clopidogrel (plavix) 75 mg once a day. Please START taking atorvastatin (lipitor) 40 mg once a day. Please START taking thiamine 100 mg once a day. Please START taking folic acid 1 mg once a day. Please continue taking your other home medications as prescribed. FOLLOW-UP Please follow-up with your primary care physician, Dr. Garcia, to discuss your recent hospitalization, evaluation of your anemia, and regarding your general health maintenance. Please follow-up with your neurologist, within 1-2weeks, Dr. Jacques, for follow-up of your stroke. ADDITIONAL INFORMATION Please call 911 or come directly to the emergency department if you experience unusual headache, vision change, difficulty spekaing, numbness, tingling, loss of alertness/awareness, loss of function, unusual bleeding, shortness of breath, chest pain, or any alarming symptoms. Please avoid excessive use of substances, such as alcohol. Please continue a low fat/sugar/cholesterol/sodium diet. Referrals: Carlene Garcia MD [Primary Care Provider] - Landry Jacques MD [Staff Physician] - Disposition: HOME - Home Medications Comprehensive Discharge Medication List: Ambulatory Orders Alprazolam [Xanax] 1 mg PO DAILY 08/27/19 Amlodipine Besylate [Norvasc -] 10 mg PO DAILY 08/27/19 Glipizide 5 mg PO BID 08/27/19 Lisinopril 20 mg PO DAILY 08/27/19 Zolpidem Tartrate [Ambien] 5 mg PO HS PRN 08/27/19 metFORMIN HCL [Metformin HCl] 500 mg PO BID 08/27/19 Multivitamins [Multivit ([facility] Form[facility])] 1 tab PO DAILY tab 08/28/19 Acarbose [Precose -] 50 mg PO TID 05/30/20 Marrero-3 Acid Ethyl Esters [Lovaza -] 1,000 mg PO BID 05/30/20 Omeprazole 40 mg PO DAILY 05/30/20 Paroxetine HCl [Paxil] 20 mg PO DAILY 05/30/20 Atorvastatin Ca [Lipitor] 40 mg PO HS 30 Days #30 tablet 06/01/20 Clopidogrel Bisulfate [Plavix -] 75 mg PO DAILY 30 Days #30 tablet 06/01/20 Folic Acid - 1 mg PO DAILY 30 Days #30 tablet 06/01/20 Phenytoin Sodium Extended 300 mg PO DAILY #30 capsule 06/01/20 Thiamine HCl [Vitamin B1 -] 100 mg PO DAILY 30 Days #30 tablet 06/01/20 This patient is new to me today: No Emergency Visit: Yes ED Registration Date: 05/30/20 Care time: The patient presented to the Emergency Department on the above date and was hospitalized for further evaluation of their emergent condition. Critical Care patient: No - Discharge Referral Referred to [facility] No ATTENDING PHYSICIAN STATEMENT I saw and evaluated the patient. I reviewed the resident's note and discussed the case with the resident. I agree with the resident's findings and plan as documented. SUBJECTIVE: OBJECTIVE: ASSESSMENT AND PLAN:
[2020-06-02] MEDS ORDERED: LISINOPRIL 5 MG TABLET (FP) PO SCH (10:00)
[2020-06-17 15:07] LABS: HOMOCYSTINE-PLASMA OR SERUM 10.8 umol/L; METHYLMALONIC ACID- 118
== END 2020-06-01 18:44 | disposition home or self-care (01) | DRG 897 ==
LOC: SUPCPDRO 00:47 → JER 00:47 → JERBED 04:47 → J4W 20:46
PROVIDERS: ADMIT Internal Medicine; ATTEND Internal Medicine
DX: F10.20 Alcohol dependence, uncomplicated (principal); E87.1 Hypo-osmolality and hyponatremia; G81.94 Hemiplegia, unspecified affecting left nondominant side; N40.0 Benign prostatic hyperplasia without lower urinary tract symptoms; E78.00 Pure hypercholesterolemia, unspecified; K21.0 Gastro-esophageal reflux disease with esophagitis; E78.5 Hyperlipidemia, unspecified; G40.909 Epilepsy, unspecified, not intractable, without status epilepticus; I10 Essential (primary) hypertension; E11.65 Type 2 diabetes mellitus with hyperglycemia; R80.9 Proteinuria, unspecified; D53.9 Nutritional anemia, unspecified; F41.8 Other specified anxiety disorders; R47.81 Slurred speech; R41.0 Disorientation, unspecified; Z86.73 Personal history of transient ischemic attack (TIA), and cerebral infarction without residual deficits
CPT/HCPCS: 36415; 70450-TC; 70544-TC; 70551-TC; 80048; 80053; 80061; 80185; 80307; 81003; 82136; 82550; 82565; 82607; 82728; 82746; 82962; 83036; 83540; 83550; 83721; 83735; 83918; 84100; 84156; 84443; 84484; 85025; 85044; 85610; 85730; 86850; 86900; 86901; 93005; 93010; 93306-TC; 93880-TC; 97116-GP; 97161-GP; 99285-25; U0003

== ENCOUNTER 2022-02-21 10:00 | Observation (INO) | payer OTHER ==
[2022-02-21 11:39] LABS: VENOUS BASE EXCESS -12.7 mmol/L (-2-2); VENOUS O2 SATURATION 75.4 % (70-80); VENOUS PCO2 29.6 mmHg (38-52); VENOUS PH 7.26 (7.310-7.410)
[2022-02-21 11:47] LABS: BASO % 0.7 % (0-2.0); EOS % 2.2 % (0-4.5); HEMATOCRIT 29.4 % (35.4-49); HEMOGLOBIN 10.2 GM/dL (11.7-16.9); LYMPH % 11.2 % (8-40); MCH 33.6 pg (25.7-33.7); MCHC 34.5 g/dl (32.0-35.9); MEAN CELL VOLUME 97.4 fl (80-96); MEAN PLT VOLUME 7.1 fl (7.5-11.1); MONO % 8.9 % (3.8-10.2); PLATELET COUNT 251 10^3/uL (134-434); RBC 3.02 M/mm3 (4.00-5.60); RDW 12.7 % (11.9-15.9); WHITE BLOOD COUNT 6.6 K/mm3 (4.0-10.0)
[2022-02-21 11:52] LABS: EPI CELLS 0 /uL (0-25.1); HYALINE CASTS 1 /uL (0-3.1); PH,URINE 5.5 (5.0-8.0); URINE APPEARANCE CLOUDY; URINE BACTERIA >9,000 /uL (0-1359); URINE BILIRUBIN NEGATIVE (NEGATIVE); URINE COLOR YELLOW; URINE GLUCOSE (UA) NEGATIVE (NEGATIVE); URINE KETONE NEGATIVE (NEGATIVE); URINE LEUK ESTERASE 1+ (NEGATIVE); URINE NITRITE POSITIVE (NEGATIVE); URINE PROTEIN 2+ (NEGATIVE); URINE RBC 4 /uL (0-23.9); URINE UROBILINOGEN 0.2 mg/dL (0.2-1.0); URINE WBC 200 /uL (0-25.8)
[2022-02-21] MEDS ORDERED: CEFTRIAXONE 1,000 MG in DEXTROSE 5%-WATER - 50 ML IVPB ONE (11:53)
[2022-02-21 11:54] LABS: INR 1.15 (0.83-1.09); PROTHROMBIN TIME (PATIENT) 13.2 SEC (9.7-13.0)
[2022-02-21 12:05] LABS: CALCIUM 8.8 mg/dL (8.5-10.1)
[2022-02-21 12:07] LABS: ALBUMIN 3.7 g/dl (3.4-5.0); BLOOD UREA NITROGEN 16.9 mg/dL (7-18)
[2022-02-21 12:10] LABS: CREATININE 1.1 mg/dL (0.55-1.3)
[2022-02-21 12:11] LABS: BILIRUBIN,TOTAL 0.2 mg/dL (0.2-1); TOT PROT 7.3 g/dl (6.4-8.2)
[2022-02-21 12:15] LABS: N-TERMINAL BNP 153.1 pg/ml (5-125)
[2022-02-21] MEDS ORDERED: CEFTRIAXONE 1 GM/50 ML BAG ONE (12:31)
[2022-02-21 15:41] LABS: LACTIC ACID 3.1 mmol/L (0.4-2.0)
[2022-02-21] MEDS ORDERED: SODIUM CHLORIDE 0.9% 1000 ML INFUS.BAG IV ONE ×2 (15:44)
[2022-02-21] MEDS ORDERED: PHENYTOIN NA EXTENDED 100 MG CAPSULE (FP) PO SCH (16:45)
[2022-02-21 17:05] LABS: COCAINE, UR NEGATIVE (NEGATIVE); METHADONE, UR NEGATIVE (NEGATIVE); OPIATES, URI NEGATIVE (NEGATIVE); PHENCYCLIDINE,URINE NEGATIVE (NEGATIVE); URINE AMPHETAMINES NEGATIVE (NEGATIVE); URINE BARBITURATES NEGATIVE (NEGATIVE); URINE BENZODIAZEPINES NEGATIVE (NEGATIVE)
[2022-02-21] MEDS ORDERED: PHENYTOIN NA EXTENDED 100 MG CAPSULE (FP) ONE (18:21)
[2022-02-21] MEDS: INSULIN SLIDING SCALE (NOVOLOG) 1 VIAL SQ SCH ×2 (18:24→23:38)
[2022-02-21] MEDS: ATORVASTATIN CA 40 MG TABLET (FP) PO SCH (23:39)
[2022-02-22] MEDS: PHENYTOIN NA EXTENDED 100 MG CAPSULE (FP) PO SCH ×4 (00:38→17:42)
[2022-02-22] MEDS: INSULIN SLIDING SCALE (NOVOLOG) 1 VIAL SQ SCH ×4 (06:13→22:08)
[2022-02-22 08:46] LABS: HEMATOCRIT 29.4 % (35.4-49); HEMOGLOBIN 10.2 GM/dL (11.7-16.9); MCH 33.5 pg (25.7-33.7); MCHC 34.6 g/dl (32.0-35.9); MEAN CELL VOLUME 96.9 fl (80-96); PLATELET COUNT 271 10^3/uL (134-434); RBC 3.03 M/mm3 (4.00-5.60); RDW 12.6 % (11.9-15.9); WHITE BLOOD COUNT 5.2 K/mm3 (4.0-10.0)
[2022-02-22 09:15] LABS: ALBUMIN 3.5 g/dl (3.4-5.0); BLOOD UREA NITROGEN 16.5 mg/dL (7-18); CREATININE 0.9 mg/dL (0.55-1.3)
[2022-02-22 09:16] LABS: CALCIUM 9.1 mg/dL (8.5-10.1); TOT PROT 7.1 g/dl (6.4-8.2)
[2022-02-22 09:17] LABS: BILIRUBIN,TOTAL 0.2 mg/dL (0.2-1)
[2022-02-22] MEDS ORDERED: cefTRIAXone SODIUM 1 GM VIAL ONE (11:14)
[2022-02-22] MEDS ORDERED: DEXTROSE 5%-WATER - 50 ML IVPB ONE (11:15)
[2022-02-22] MEDS: THIAMINE HCL 100 MG TABLET (FP) PO SCH (11:24)
[2022-02-22] MEDS: ENOXAPARIN NA (PORCINE) 40 MG/0.4 ML DISP.SYRIN SQ SCH (11:24)
[2022-02-22] MEDS: CEFTRIAXONE 1 GM in DEXTROSE 5%-WATER - 50 ML IVPB SCH (11:25)
[2022-02-22] MEDS: PANTOPRAZOLE 40 MG TABLET PO SCH (11:25)
[2022-02-22] MEDS: CLOPIDOGREL BISULFATE 75 MG TABLET (FP) PO SCH (11:25)
[2022-02-22] MEDS: LISINOPRIL 20 MG TABLET PO SCH (11:25)
[2022-02-22] MEDS: amLODIPine BESYLATE 10 MG TABLET (FP) PO SCH (11:25)
[2022-02-22] MEDS: TAMSULOSIN HCL 0.4 MG CAP PO SCH (11:25)
[2022-02-22] MEDS: FOLIC ACID 1 MG TABLET (FP) PO SCH (11:26)
[2022-02-22] MEDS: PARoxetine HCL 20 MG TABLET PO SCH (11:27)
[2022-02-22] MEDS: ATORVASTATIN CA 40 MG TABLET (FP) PO SCH (22:07)
[2022-02-23] MEDS: PHENYTOIN NA EXTENDED 100 MG CAPSULE (FP) PO SCH ×3 (01:23→11:44)
[2022-02-23 05:47] VITALS: BP 147/88; PULSE 81; TEMP 98.8
[2022-02-23] MEDS: INSULIN SLIDING SCALE (NOVOLOG) 1 VIAL SQ SCH ×2 (07:36→11:45)
[2022-02-23 07:48] LABS: BASO % 0.6 % (0-2.0); EOS % 6.4 % (0-4.5); HEMATOCRIT 29.1 % (35.4-49); HEMOGLOBIN 9.9 GM/dL (11.7-16.9); LYMPH % 24.3 % (8-40); MCH 33.3 pg (25.7-33.7); MCHC 34.1 g/dl (32.0-35.9); MEAN CELL VOLUME 97.6 fl (80-96); NEUT % 58.7 % (42.8-82.8); PLATELET COUNT 259 10^3/uL (134-434); RBC 2.98 M/mm3 (4.00-5.60); RDW 12.7 % (11.9-15.9); WHITE BLOOD COUNT 5.1 K/mm3 (4.0-10.0)
[2022-02-23 08:22] LABS: CALCIUM 8.8 mg/dL (8.5-10.1)
[2022-02-23 08:23] LABS: ALBUMIN 3.5 g/dl (3.4-5.0); BLOOD UREA NITROGEN 21.8 mg/dL (7-18); MAGNESIUM 1.4 mg/dL (1.8-2.4)
[2022-02-23] MEDS ORDERED: MAGNESIUM SULF 50% (8.12 MEQ/2 ML-1 GM VIAL) IVPB ONE (08:24)
[2022-02-23 08:27] LABS: TOT PROT 6.9 g/dl (6.4-8.2)
[2022-02-23 08:28] LABS: BILIRUBIN,TOTAL 0.2 mg/dL (0.2-1)
[2022-02-23 08:47] VITALS: BMI 27.3
[2022-02-23] MEDS ORDERED: OMEGA-3 ACID ETHYL ESTERS (FATTY-ACIDS) 1 GM CAPSULE (FP) PO SCH (10:00)
[2022-02-23] MEDS ORDERED: DEXTROSE 5%-WATER - 50 ML IVPB ONE (10:04)
[2022-02-23] MEDS ORDERED: cefTRIAXone SODIUM 1 GM VIAL ONE (10:04)
[2022-02-23] MEDS: CEFTRIAXONE 1 GM in DEXTROSE 5%-WATER - 50 ML IVPB SCH (10:16)
[2022-02-23] MEDS: amLODIPine BESYLATE 10 MG TABLET (FP) PO SCH (10:16)
[2022-02-23] MEDS: ENOXAPARIN NA (PORCINE) 40 MG/0.4 ML DISP.SYRIN SQ SCH (10:17)
[2022-02-23] MEDS: TAMSULOSIN HCL 0.4 MG CAP PO SCH (10:17)
[2022-02-23] MEDS: CLOPIDOGREL BISULFATE 75 MG TABLET (FP) PO SCH (10:17)
[2022-02-23] MEDS: FOLIC ACID 1 MG TABLET (FP) PO SCH (10:17)
[2022-02-23] MEDS: PARoxetine HCL 20 MG TABLET PO SCH (10:17)
[2022-02-23] MEDS: PANTOPRAZOLE 40 MG TABLET PO SCH (10:17)
[2022-02-23] MEDS: THIAMINE HCL 100 MG TABLET (FP) PO SCH (10:17)
[2022-02-23] MEDS: LISINOPRIL 20 MG TABLET PO SCH (10:17)
[2022-02-23] MEDS ORDERED: CEFUROXIME AXETIL 500 MG TABLET PO SCH (22:00)
[2022-02-23] MEDS ORDERED: MAGNESIUM OXIDE 400 MG TABLET (FP) PO SCH (22:00)
== END 2022-02-23 14:51 | disposition left against medical advice (07) ==
LOC: JER 10:00 → JERBED 14:34 → J7W 21:01
PROVIDERS: ADMIT Internal Medicine; ATTEND Nurse Practitioner Family
PROC: 3E03329 Introduction of Other Anti-infective into Peripheral Vein, Percutaneous Approach (ICD-10-PCS; principal; 2022-02-21)
PROC: 3E023GC Introduction of Other Therapeutic Substance into Muscle, Percutaneous Approach (ICD-10-PCS; 2022-02-21)
PROC: 3E013VG Introduction of Insulin into Subcutaneous Tissue, Percutaneous Approach (ICD-10-PCS; 2022-02-21)
PROC: 3E0337Z Introduction of Electrolytic and Water Balance Substance into Peripheral Vein, Percutaneous Approach (ICD-10-PCS; 2022-02-21)
DX: R53.1 Weakness (principal); I10 Essential (primary) hypertension; E78.00 Pure hypercholesterolemia, unspecified; E11.9 Type 2 diabetes mellitus without complications; N40.0 Benign prostatic hyperplasia without lower urinary tract symptoms; R26.2 Difficulty in walking, not elsewhere classified; F32.9 Major depressive disorder, single episode, unspecified; I69.354 Hemiplegia and hemiparesis following cerebral infarction affecting left non-dominant side; Z29.8 Encounter for other specified prophylactic measures; F10.10 Alcohol abuse, uncomplicated; E87.2 Acidosis; N39.0 Urinary tract infection, site not specified; E87.1 Hypo-osmolality and hyponatremia; R80.9 Proteinuria, unspecified
CPT/HCPCS: 36415; 70450-TC; 71045-TC-FY; 80053; 80185; 80307; 81003; 82803; 82962; 83605; 83735; 83880; 83930; 83935; 84443; 84484; 85025; 85027; 85610; 85730; 87086; 87186; 93005; 93010; 96365; 96372; 96375; 97116-GP; 97161-GP; 99285-25; C9803-CS; G0378; U0003; U0005

== ENCOUNTER 2022-03-14 11:40 | Observation (INO) | payer OTHER ==
[2022-03-14] MEDS ORDERED: SODIUM CHLORIDE 0.9% 1000 ML INFUS.BAG IV ONE (12:46)
[2022-03-14] MEDS ORDERED: ACETAMINOPHEN 500 MG TABLET (FP) PO ONE (12:46)
[2022-03-14] MEDS ORDERED: ACETAMINOPHEN 325 MG TABLET (FP) ONE (12:55)
[2022-03-14] MEDS: ALBUTEROL SO4 2.5/IPRATROPIUM 0.5 INH SOL 3 ML VIAL.NEB. NEB SCH ×2 (13:00→13:17)
[2022-03-14 13:04] LABS: BASO % 0.8 % (0-2.0); EOS % 16.3 % (0-4.5); HEMOGLOBIN 9.3 GM/dL (11.7-16.9); LYMPH % 18.3 % (8-40); MCH 33.8 pg (25.7-33.7); MCHC 34.6 g/dl (32.0-35.9); MEAN CELL VOLUME 97.6 fl (80-96); MEAN PLT VOLUME 6.6 fl (7.5-11.1); MONO % 7.9 % (3.8-10.2); NEUT % 56.7 % (42.8-82.8); PLATELET COUNT 203 10^3/uL (134-434); RBC 2.77 M/mm3 (4.00-5.60); WHITE BLOOD COUNT 6.6 K/mm3 (4.0-10.0)
[2022-03-14 13:25] LABS: ALBUMIN 3.6 g/dl (3.4-5.0); BLOOD UREA NITROGEN 8.9 mg/dL (7-18); CALCIUM 8.7 mg/dL (8.5-10.1)
[2022-03-14 13:27] LABS: CREATININE 0.9 mg/dL (0.55-1.3)
[2022-03-14 13:29] LABS: BILIRUBIN,TOTAL 0.2 mg/dL (0.2-1); TOT PROT 6.5 g/dl (6.4-8.2)
[2022-03-14] MEDS ORDERED: POLYETHYLENE GLYCOL (HEALTHYLAX) 3350 17 GM PACKET PO PRN (16:11)
[2022-03-14] MEDS ORDERED: ACETAMINOPHEN 325 MG TABLET (FP) PO PRN (16:11)
[2022-03-14] MEDS ORDERED: IBUPROFEN 400 MG TABLET (FP) PO PRN (16:11)
[2022-03-14] MEDS ORDERED: guaiFENesin/D-M SUGAR-FREE/ACLHOL-FREE 5 ML UNIT DOSE PO PRN (16:16)
[2022-03-14] MEDS ORDERED: BENZOCAINE/MENTH/CETYLPYRD CL 1 EACH LOZENGE MM PRN (16:17)
[2022-03-14] MEDS ORDERED: SODIUM CHLORIDE 1,000 ML IV SCH (19:45)
[2022-03-14] MEDS ORDERED: ATORVASTATIN CA 40 MG TABLET (FP) PO SCH (22:00)
[2022-03-14] MEDS ORDERED: ATORVASTATIN CA 40 MG TABLET (FP) ONE (23:23)
[2022-03-14] MEDS: OMEGA-3 ACID ETHYL ESTERS (FATTY-ACIDS) 1 GM CAPSULE (FP) PO SCH (23:32)
[2022-03-15] MEDS: PHENYTOIN NA EXTENDED 100 MG CAPSULE (FP) PO SCH ×4 (00:41→11:55)
[2022-03-15] MEDS ORDERED: PHENYTOIN NA EXTENDED 100 MG CAPSULE (FP) ONE (02:38)
[2022-03-15 03:45] VITALS: BMI 25.4
[2022-03-15] MEDS: INSULIN SLIDING SCALE (NOVOLOG) 1 VIAL SQ SCH ×3 (06:03→12:01)
[2022-03-15] MEDS: ALBUTEROL SO4 2.5/IPRATROPIUM 0.5 INH SOL 3 ML VIAL.NEB. NEB SCH ×2 (07:46→07:47)
[2022-03-15 08:20] LABS: BASO % 0.6 % (0-2.0); EOS % 15.4 % (0-4.5); HEMOGLOBIN 9.3 GM/dL (11.7-16.9); LYMPH % 16.4 % (8-40); MCH 33.6 pg (25.7-33.7); MCHC 34.3 g/dl (32.0-35.9); MEAN CELL VOLUME 98.1 fl (80-96); MEAN PLT VOLUME 6.9 fl (7.5-11.1); MONO % 8.3 % (3.8-10.2); NEUT % 59.3 % (42.8-82.8); PLATELET COUNT 209 10^3/uL (134-434); RBC 2.75 M/mm3 (4.00-5.60); RDW 12.8 % (11.9-15.9); WHITE BLOOD COUNT 7.4 K/mm3 (4.0-10.0)
[2022-03-15 08:21] LABS: EPI CELLS 3 /uL (0-25.1); HYALINE CASTS 1 /uL (0-3.1); URINE APPEARANCE CLOUDY; URINE BACTERIA 3278 /uL (0-1359); URINE BILIRUBIN NEGATIVE (NEGATIVE); URINE COLOR YELLOW; URINE GLUCOSE (UA) NEGATIVE (NEGATIVE); URINE KETONE NEGATIVE (NEGATIVE); URINE LEUK ESTERASE 1+ (NEGATIVE); URINE NITRITE NEGATIVE (NEGATIVE); URINE PROTEIN 1+ (NEGATIVE); URINE RBC 2 /uL (0-23.9); URINE UROBILINOGEN 0.2 mg/dL (0.2-1.0); URINE WBC 202 /uL (0-25.8)
[2022-03-15 08:29] VITALS: BP 147/86; PULSE 102; TEMP 98.8
[2022-03-15] MEDS ORDERED: TAMSULOSIN HCL 0.4 MG CAP PO SCH (08:30)
[2022-03-15 08:50] LABS: CALCIUM 8.9 mg/dL (8.5-10.1)
[2022-03-15 08:51] LABS: ALBUMIN 3.5 g/dl (3.4-5.0); BLOOD UREA NITROGEN 8.4 mg/dL (7-18)
[2022-03-15 08:52] LABS: PHOSPHOROUS 4.1 mg/dL (2.5-4.9)
[2022-03-15 08:54] LABS: BILIRUBIN,TOTAL 0.6 mg/dL (0.2-1); TOT PROT 6.2 g/dl (6.4-8.2)
[2022-03-15 08:56] LABS: CREATININE 0.8 mg/dL (0.55-1.3)
[2022-03-15] MEDS ORDERED: DEXTROSE 5%-WATER - 50 ML IVPB ONE (09:55)
[2022-03-15] MEDS ORDERED: cefTRIAXone SODIUM 1 GM VIAL ONE (09:55)
[2022-03-15] MEDS ORDERED: CLOPIDOGREL BISULFATE 75 MG TABLET (FP) PO SCH (10:00)
[2022-03-15] MEDS ORDERED: THIAMINE HCL 100 MG TABLET (FP) PO SCH (10:00)
[2022-03-15] MEDS ORDERED: FOLIC ACID 1 MG TABLET (FP) PO SCH (10:00)
[2022-03-15] MEDS ORDERED: PANTOPRAZOLE 40 MG TABLET PO SCH (10:00)
[2022-03-15] MEDS ORDERED: amLODIPine BESYLATE 10 MG TABLET (FP) PO SCH (10:00)
[2022-03-15] MEDS ORDERED: CEFTRIAXONE 1 GM in DEXTROSE 5%-WATER - 50 ML IVPB SCH (10:00)
[2022-03-15] MEDS ORDERED: ENOXAPARIN NA (PORCINE) 40 MG/0.4 ML DISP.SYRIN SQ SCH (10:00)
[2022-03-15] MEDS ORDERED: PARoxetine HCL 20 MG TABLET PO SCH (10:00)
[2022-03-15] MEDS: OMEGA-3 ACID ETHYL ESTERS (FATTY-ACIDS) 1 GM CAPSULE (FP) PO SCH (10:02)
[2022-03-15] MEDS ORDERED: MONTELUKAST NA 10 MG TABLET PO ONE (10:25)
[2022-03-16] MEDS ORDERED: MONTELUKAST NA 10 MG TABLET PO SCH (22:00)
== END 2022-03-15 15:03 | disposition home or self-care (01) ==
LOC: JER 11:40 → JERBED 15:21 → OBSVTOIN 16:11 → INTOOBSV 16:11 → J4W 03-15 02:59
PROVIDERS: ADMIT Internal Medicine; ATTEND Nurse Practitioner Acute Care
PROC: 3E03329 Introduction of Other Anti-infective into Peripheral Vein, Percutaneous Approach (ICD-10-PCS; principal; 2022-03-14)
PROC: 3E023GC Introduction of Other Therapeutic Substance into Muscle, Percutaneous Approach (ICD-10-PCS; 2022-03-14)
PROC: 3E013VG Introduction of Insulin into Subcutaneous Tissue, Percutaneous Approach (ICD-10-PCS; 2022-03-14)
PROC: 3E0337Z Introduction of Electrolytic and Water Balance Substance into Peripheral Vein, Percutaneous Approach (ICD-10-PCS; 2022-03-14)
DX: N39.0 Urinary tract infection, site not specified (principal); R07.9 Chest pain, unspecified; E78.5 Hyperlipidemia, unspecified; E87.1 Hypo-osmolality and hyponatremia; N40.0 Benign prostatic hyperplasia without lower urinary tract symptoms; E11.9 Type 2 diabetes mellitus without complications; I69.854 Hemiplegia and hemiparesis following other cerebrovascular disease affecting left non-dominant side; G40.909 Epilepsy, unspecified, not intractable, without status epilepticus; E88.81 Metabolic syndrome and other insulin resistance; J40 Bronchitis, not specified as acute or chronic; R05.9 Cough, unspecified; F41.8 Other specified anxiety disorders; R63.39 Other feeding difficulties; I10 Essential (primary) hypertension
CPT/HCPCS: 0241U-QW; 36415; 71045-TC-FY; 80053; 81003; 82436; 82962; 83735; 83935; 84100; 84133; 84300; 84484; 85025; 93005; 93010; 96361; 96365; 96372; 99285-25; G0378

== ENCOUNTER 2023-06-12 15:41 | Emergency (ER) | payer OTHER ==
[2023-06-12 16:34] VITALS: BMI 26.6
[2023-06-12] MEDS ORDERED: morphine CARPU-JECT 4 MG/1 ML DISP.SYRIN IVPUSH ONE ×2 (16:49→22:17)
[2023-06-12] MEDS ORDERED: ONDANSETRON 4 MG/2 ML VIAL IVPUSH ONE (16:59)
[2023-06-12] MEDS ORDERED: morphine SULFATE 4 MG/ML VIAL ONE ×2 (17:35→23:03)
[2023-06-12] MEDS ORDERED: ONDANSETRON 4 MG/2 ML VIAL ONE (17:35)
[2023-06-12] MEDS ORDERED: SODIUM CHLORIDE 0.9% 500 ML INFUS.BAG IV ONE ×2 (17:54→19:14)
[2023-06-12 18:11] LABS: BASO % 0.2 % (0-2.0); EOS % 0.4 % (0-4.5); HEMATOCRIT 22.8 % (35.4-49); HEMOGLOBIN 8.1 GM/dL (11.7-16.9); LYMPH % 10.4 % (8-40); MCH 34.1 pg (25.7-33.7); MCHC 35.6 g/dl (32.0-35.9); MEAN PLT VOLUME 6.5 fl (7.5-11.1); PLATELET COUNT 210 10^3/uL (134-434); RBC 2.38 M/mm3 (4.00-5.60); RDW 12.8 % (11.9-15.9); WHITE BLOOD COUNT 9.5 K/mm3 (4.0-10.0)
[2023-06-12 18:21] LABS: INR 1.01 (0.83-1.09); PROTHROMBIN TIME (PATIENT) 11.7 SEC (9.7-13.0)
[2023-06-12 18:23] LABS: ACTIVATED PTT 23.4 SECONDS (25.2-36.5)
[2023-06-12 18:26] LABS: POTASSIUM 4.9 mmol/L (3.5-5.1)
[2023-06-12 18:29] LABS: CALCIUM 8.2 mg/dL (8.5-10.1)
[2023-06-12 18:30] LABS: ALBUMIN 3.6 g/dl (3.4-5.0); BLOOD UREA NITROGEN 33.8 mg/dL (7-18)
[2023-06-12 18:33] LABS: CREATININE 1.3 mg/dL (0.55-1.3)
[2023-06-12 18:34] LABS: BILIRUBIN,TOTAL 0.5 mg/dL (0.2-1); TOT PROT 6.2 g/dl (6.4-8.2)
[2023-06-12 22:30] VITALS: BP 146/67; PULSE 82; RESP 22; TEMP 98
== END 2023-06-13 00:37 | disposition short-term general hospital (02) ==
LOC: JER 15:41
PROC: 3E033NZ Introduction of Analgesics, Hypnotics, Sedatives into Peripheral Vein, Percutaneous Approach (ICD-10-PCS; principal; 2023-06-12)
PROC: 3E033GC Introduction of Other Therapeutic Substance into Peripheral Vein, Percutaneous Approach (ICD-10-PCS; 2023-06-12)
PROC: 3E033NZ Introduction of Analgesics, Hypnotics, Sedatives into Peripheral Vein, Percutaneous Approach (ICD-10-PCS; 2023-06-12)
DX: S22.41XA Multiple fractures of ribs, right side, initial encounter for closed fracture (principal); S27.1XXA Traumatic hemothorax, initial encounter; R39.89 Other symptoms and signs involving the genitourinary system; W01.0XXA Fall on same level from slipping, tripping and stumbling without subsequent striking against object, initial encounter; Y92.002 Bathroom of unspecified non-institutional (private) residence as the place of occurrence of the external cause
CPT/HCPCS: 36415; 70450-TC; 71260-TC; 72125-TC; 72131-TC; 74177-TC; 80053; 85025; 85610; 85730; 86850; 86900; 86901; 87635; 93005; 93010; 99291; Q9967